=== PATIENT | female | born 1955 | race Hispanic/Latino ===

== ENCOUNTER 2019-03-03 12:26 | Emergency (ER) | payer SELFPAY ==
--- NOTE | 2019-03-03 14:07 | ER ---
Nurse's Notes [facility] Name: Ade Polo Age: 63 yrs Sex: Female : 1955 Arrival Date: 03/03/2019 Time: 12:29 Bed 18 Private MD: Diagnosis: Cutaneous abscess of groin Presentation: 03/03 12:33 Presenting complaint: Patient states: I have an abscess in my right groin area/. la1 Transition of care: patient was not received from another setting of care. Onset of symptoms was March 03, 2019. Risk Assessment: Do you want to hurt yourself or someone else? Patient reports no desire to harm self or others. Initial Sepsis Screen: Does the patient meet any 2 criteria? No. Patient's initial sepsis screen is negative. Does the patient have a suspected source of infection? No. Patient's initial sepsis screen is negative. Care prior to arrival: None. 12:33 Method Of Arrival: Ambulatory la1 12:33 Acuity: RHETT 4 la1 Historical: - Allergies: 12:35 PENICILLINS; la1 - PMHx: 12:35 None; la1 - Immunization history:: Adult Immunizations up to date. - Social history:: Smoking status: Patient uses tobacco products, smokes one-half pack cigarettes per day. - Ebola Screening: : No symptoms or risks identified at this time. Screenin:04 Abuse screen: Denies threats or abuse. Nutritional screening: No deficits noted. em Tuberculosis screening: No symptoms or risk factors identified. Fall Risk None identified. Assessment: 13:09 General: Appears in no apparent distress. comfortable, Behavior is calm, cooperative, em Denies fever. Pain: Complains of pain in right femoral area Pain currently is 7 out of 10 on a pain scale. Neuro: Level of Consciousness is awake, alert, obeys commands, Oriented to person, place, time, situation, Appropriate for age. Cardiovascular: Capillary refill < 3 seconds Patient's skin is warm and dry. Respiratory: Airway is patent Respiratory effort is even, unlabored, Respiratory pattern is regular, symmetrical. Derm: Skin is intact, is healthy with good turgor, Skin is pink, warm \T\ dry. Reports pain that is 7 out of 10 on a pain scale. reports abscess on right groin for 2 days. Musculoskeletal: Capillary refill < 3 seconds, Range of motion: intact in all extremities. 13:15 General: The previous assessment is accurate. Call light remains within reach. ss 14:34 Reassessment: Patient appears in no apparent distress at this time. Patient and/or em family updated on plan of care and expected duration. Pain level reassessed. Patient is alert, oriented x 3, equal unlabored respirations, skin warm/dry/pink. Vital Signs: 12:35 BP 168 / 78; Pulse 87; Resp 16; Temp 97.3; Pulse Ox 100% on R/A; Weight 68.04 kg; la1 Height 5 ft. 6 in. (167.64 cm); 14:20 BP 158 / 81; Pulse 88; Resp 16; Pulse Ox 99% on R/A; em 12:35 Body Mass Index 24.21 (68.04 kg, 167.64 cm) la1 ED Course: 12:29 Patient arrived in ED. rg4 12:34 Triage completed. la1 12:35 Arm band placed on right wrist. la1 12:54 Fam Jc LVN is Primary Nurse. em 13:04 Patient has correct armband on for positive identification. Placed in gown. Bed in low em position. Call light in reach. Adult w/ patient. Pulse ox on. NIBP on. 13:10 Gerardo Valenzuela NP is PHCP. pm1 13:10 Rafiq Zuluaga MD is Attending Physician. pm1 14:06 Curry Weaver MD is Referral Physician. pm1 14:45 No provider procedures requiring assistance completed. Patient did not have IV access em during this emergency room visit. 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 Exp: em 09/27/2020. Lot #: [id number]. } Route: IM; Site: left deltoid; 14:37 Follow up: Response: Medication administered at discharge. em 14:25 Drug: [place] 5 mg-325 mg 1 tabs Route: PO; em 14:37 Follow up: Response: Medication administered at discharge. em 14:25 Drug: Bactrim (160 mg-800 mg (DS) 1 tablet Route: PO; em 14:37 Follow up: Response: Medication administered at discharge. em Outcome: 14:06 Discharge ordered by . pm1 14:47 Discharged to home ambulatory, with family. em 14:47 Condition: good 14:47 Discharge instructions given to patient, Instructed on discharge instructions, follow up and referral plans. medication usage, Demonstrated understanding of instructions, follow-up care, medications, Prescriptions given X 2. 14:49 Patient left the ED. em Signatures: Fam Jc, BIAZZI NITRATOR OPERATOR BIAZZI NITRATOR OPERATOR em Farzaneh Lopez RN RN ss Attema, Lee, RN RN la1 Gerardo Valenzuela NP RESAWYER pm1 Nidia Alas4
--- NOTE | 2019-03-03 14:07 | EDPHYS ---
Physician Documentation [facility] Name: Ade Polo Age: 63 yrs Sex: Female : 1955 Arrival Date: 03/03/2019 Time: 12:29 Bed 18 Private MD: ED Physician Rafiq Zuluaga HPI: 03/03 14:05 This 63 yrs old Female presents to ER via Ambulatory with complaints of pm1 Abscess. 14:05 The patient presents with an abscess of the right labia majora. Description: raised, pm1 swollen. Onset: The symptoms/episode began/occurred 2 day(s) ago. Possible cause(s): unknown. Associated signs and symptoms: Pertinent negatives: discharge, drainage, fever. Modifying factors: the symptoms are alleviated by nothing, the symptoms are aggravated by sitting, touching. Severity of symptoms: in the emergency department the symptoms are actually worse. The patient has not experienced similar symptoms in the past. The patient has not recently seen a physician. Historical: - Allergies: 12:35 PENICILLINS; la1 - PMHx: 12:35 None; la1 - Immunization history:: Adult Immunizations up to date. - Social history:: Smoking status: Patient uses tobacco products, smokes one-half pack cigarettes per day. - Ebola Screening: : No symptoms or risks identified at this time. ROS: 14:05 Constitutional: Negative for fever, chills, and weight loss, Cardiovascular: Negative pm1 for chest pain, palpitations, and edema, Respiratory: Negative for shortness of breath, cough, wheezing, and pleuritic chest pain, Abdomen/GI: Negative for abdominal pain, nausea, vomiting, diarrhea, and constipation, Back: Negative for injury and pain, : Negative for injury, bleeding, discharge, and swelling, MS/Extremity: Negative for injury and deformity. 14:05 Neuro: Negative for headache, weakness, numbness, tingling, and seizure. 14:05 Skin: Positive for abscess, of the right labia majora. Exam: 14:05 Constitutional: This is a well developed, well nourished patient who is awake, alert, pm1 and in no acute distress. Head/Face: Normocephalic, atraumatic. Neck: Trachea midline, no thyromegaly or masses palpated, and no cervical lymphadenopathy. Supple, full range of motion without nuchal rigidity, or vertebral point tenderness. No Meningismus. Chest/axilla: Normal chest wall appearance and motion. Nontender with no deformity. No lesions are appreciated. Cardiovascular: Regular rate and rhythm with a normal S1 and S2. No gallops, murmurs, or rubs. Normal PMI, no JVD. No pulse deficits. Respiratory: Lungs have equal breath sounds bilaterally, clear to auscultation and percussion. No rales, rhonchi or wheezes noted. No increased work of breathing, no retractions or nasal flaring. Abdomen/GI: Soft, non-tender, with normal bowel sounds. No distension or tympany. No guarding or rebound. No evidence of tenderness throughout. MS/ Extremity: Pulses equal, no cyanosis. Neurovascular intact. Full, normal range of motion. 14:05 Skin: Appearance: normal except for affected area, abscess, that is small, approximately 1 cm(s), of the right labia majora, with pointing, no surrounding cellulitis, drainage, induration. 14:05 Neuro: Orientation: is normal, Motor: is normal, moves all fours. 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 pm1 Vital Signs: 12:35 BP 168 / 78; Pulse 87; Resp 16; Temp 97.3; Pulse Ox 100% on R/A; Weight 68.04 kg; la1 Height 5 ft. 6 in. (167.64 cm); 14:20 BP 158 / 81; Pulse 88; Resp 16; Pulse Ox 99% on R/A; em 12:35 Body Mass Index 24.21 (68.04 kg, 167.64 cm) la1 Procedures: 14:05 I \T\ D: Incision and drainage was performed for an abscess of the right labia majora pm1 Prepped with Betadine, Incised with needle aspiration with 18 gauge needle. Drained small amount Cultures obtained. the patient tolerated the procedure well. 14:05 I \T\ D: Rolanda as Retention Representative. pm1 MDM: 13:10 Patient medically screened. pm1 14:05 Data reviewed: vital signs. Data interpreted: Pulse oximetry: on room air is 100 %. pm1 Interpretation: normal. Counseling: I had a detailed discussion with the patient and/or guardian regarding: the historical points, exam findings, and any diagnostic results supporting the discharge/admit diagnosis, the need for outpatient follow up, to return to the emergency department if symptoms worsen or persist or if there are any questions or concerns that arise at home. 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 Exp: em 09/27/2020. Lot #: [id number]. } Route: IM; Site: left deltoid; 14:37 Follow up: Response: Medication administered at discharge. em 14:25 Drug: [place] 5 mg-325 mg 1 tabs Route: PO; em 14:37 Follow up: Response: Medication administered at discharge. em 14:25 Drug: Bactrim (160 mg-800 mg (DS) 1 tablet Route: PO; em 14:37 Follow up: Response: Medication administered at discharge. em Disposition: 03/03/19 14:06 Discharged to Home. Impression: Cutaneous abscess of groin. - Condition is Stable. - Discharge Instructions: Skin Abscess. - Prescriptions for Bactrim DS 800- 160 mg Oral Tablet - take 1 tablet by ORAL route every 12 hours for 10 days; 20 tablet. Tramadol 50 mg Oral Tablet - take 1 tablet by ORAL route every 8 hours as needed; 12 tablet. - Medication Reconciliation Form, Thank You Letter, Antibiotic Education, Prescription Opioid Use form. - Follow up: Emergency Department; When: As needed; Reason: Worsening of condition. Follow up: Private Physician; When: 2 - 3 days; Reason: Recheck today's complaints, Continuance of care, Re-evaluation by your physician. Follow up: Curry Weaver MD; When: 2 - 3 days; Reason: Recheck today's complaints, Continuance of care, Re-evaluation by your physician. - Problem is new. - Symptoms have improved. Addendum: 03/04/2019 16:43 Co-signature as Attending Physician, Rafiq Zuluaga MD. m a2 Signatures: Dispatcher [employer] Fam L[place]ola, CREDIT CONTROL ASSISTANT CREDIT CONTROL ASSISTANT Denzel Melendez RN RN la1 Gerardo Valenzuela, PROFESSIONAL CASTER PROFESSIONAL CASTER pm1 Rafiq Zuluaga MD MD ma2 Corrections: (The following items were deleted from the chart) 11/10 14:06 14:06 03/03/2019 14:06 Discharged to Home. Impression: Cutaneous abscess of groin. pm1 Condition is Stable. Forms are Medication Reconciliation Form, Thank You Letter, Antibiotic Education, Prescription Opioid Use. Follow up: Emergency Department; When: As needed; Reason: Worsening of condition. Follow up: Private Physician; When: 2 - 3 days; Reason: Recheck today's complaints, Continuance of care, Re-evaluation by your physician. Problem is new. Symptoms have improved. pm1 14:49 14:06 03/03/2019 14:06 Discharged to Home. Impression: Cutaneous abscess of groin. em Condition is Stable. Discharge Instructions: Skin Abscess. Prescriptions for Bactrim DS 800-160 mg Oral Tablet - take 1 tablet by ORAL route every 12 hours for 10 days; 20 tablet, Tramadol 50 mg Oral Tablet - take 1 tablet by ORAL route every 8 hours as needed; 12 tablet. and Forms are Medication Reconciliation Form, Thank You Letter, Antibiotic Education, Prescription Opioid Use. Follow up: Emergency Department; When: As needed; Reason: Worsening of condition. Follow up: Private Physician; When: 2 - 3 days; Reason: Recheck today's complaints, Continuance of care, Re-evaluation by your physician. Follow up: Curry Weaver; When: 2 - 3 days; Reason: Recheck today's complaints, Continuance of care, Re-evaluation by your physician. Problem is new. Symptoms have improved. pm1
[2019-03-03] MEDS ORDERED: SMZ./TMP. 800/160 MG TABLET ONE (14:17)
[2019-03-03] MEDS ORDERED: HYDROCODONE/APAP 5/325 MG TAB ONE (14:17)
[2019-03-03] MEDS ORDERED: TETANUS & DIPHTHERIA TOX,ADULT 0.5 ML VIAL ONE (14:17)
[2019-03-03 15:13] VITALS: TEMP 97.3
[2019-03-03 15:18] VITALS: BP 158/81; O2SAT 99
== END 2019-03-03 14:49 | disposition home or self-care (01) ==
LOC: ER 12:26
PROC: 0U9MXZZ Drainage of Vulva, External Approach (ICD-10-PCS; principal; 2019-03-03)
DX: N76.4 Abscess of vulva (principal); F17.210 Nicotine dependence, cigarettes, uncomplicated; Z23 Encounter for immunization; Z88.0 Allergy status to penicillin
CPT/HCPCS: 87070; 87205; 90471; 90714; 99283

== ENCOUNTER 2020-05-28 13:33 | Inpatient (IN) | payer SELFPAY ==
[2020-05-28] MEDS ORDERED: predniSONE 20 MG TAB ONE (14:27)
[2020-05-28] MEDS ORDERED: ACETAMINOPHEN 325 MG TABLET ONE (14:27)
[2020-05-28] MEDS ORDERED: BENZONATATE 100 MG CAP PO ONE (14:27)
[2020-05-28] MEDS ORDERED: ALBUTEROL INHALER 60 PUFF/8 GM IH ONE (14:28)
--- NOTE | 2020-05-28 15:25 | RAD REPORT ---
EXAM DESCRIPTION: RAD - Chest Single View - 05/28/2020 3:13 pm CLINICAL HISTORY: Cough;SOB Chest pain. COMPARISON: CHEST PA AND LAT 2 VIEW dated 02/20/2013; CHEST SINGLE VIEW dated 02/19/2013; CHEST SING LE VIEW dated 08/13/2010 FINDINGS: Portable technique limits examination quality. Moderate bilateral pulmonary opacities are present likely representing viral infection or bronchitis. . The heart is normal in size. No displaced fractures.Right axillary kamron dissection noted.
[2020-05-28 15:57] LABS: Absolute Lymphocytes (CBC) 0.7 K/uL (0.7-4.9); Basophils % 0.7 % (0-1.3); Lymphocytes % 7.8 % (15.3-44.8); MPV 11.3 fL (7.6-11.3)
[2020-05-28] MEDS ORDERED: METHYLPREDNISOLONE 40 MG INJ ONE (16:04)
[2020-05-28 16:08] LABS: Protime INR 1.19
[2020-05-28 16:20] LABS: ALT/SGPT 31 U/L (12-78); AST/SGOT 74 U/L (15-37); Albumin 1.9 g/dL (3.4-5.0); Alkaline Phosphatase 158 U/L (45-117); BUN Blood Urea Nitrogen 42 mg/dL (7-18); Bicarbonate 24 mmol/L (21-32); Bilirubin Direct 2.2 mg/dL (0-0.2); Bilirubin Total 3.4 mg/dL (0.2-1.0); Ferritin 1655.4 ng/mL (8-388); Glucose Level 129 mg/dL (74-106); Magnesium 2.8 mg/dL (1.8-2.4); NT PRO-BNP 1479 pg/mL (<125); Potassium 3.3 mmol/L (3.5-5.1); Protein, Total 6.9 g/dL (6.4-8.2); Sodium Level 134 mmol/L (136-145); Troponin (Emerg Dept Use Only) < 0.02 ng/mL (0.0-0.045)
--- NOTE | 2020-05-28 16:40 | ER ---
Nurse's Notes [facility] Name: Ade Polo Age: 65 yrs Sex: Female : 1955 Arrival Date: 05/28/2020 Time: 13:38 Bed 25 Private MD: Diagnosis: Pneumonia due to other specified infectious organisms;Dyspnea, unspecified;Coronavirus infection, unspecified Presentation: 05/28 13:38 Chief complaint: EMS states: N/V/D and sore throat that began 15 days ago. Pt reports ss that she has had exposure to COVID. Coronavirus screen: Client presents with at least one sign or symptom that may indicate coronavirus-19. Standard/surgical mask placed on the client. Provider contacted for isolation considerations. Ebola Screen: Patient denies exposure to infectious person. Patient denies travel to an Ebola-affected area in the 21 days before illness onset. Initial Sepsis Screen: Does the patient meet any 2 criteria? HR > 90 bpm. Does the patient have a suspected source of infection? No. Patient's initial sepsis screen is negative. Risk Assessment: Do you want to hurt yourself or someone else? Patient reports no desire to harm self or others. Onset of symptoms was May 10, 2020. 13:38 Method Of Arrival: EMS: [facility] 13:38 Acuity: RHETT 4 ss Historical: - Allergies: 13:44 PENICILLINS; ss - Home Meds: 16:41 None [Active]; ss - PMHx: 16:41 breast CA ( in remission); ss - PSHx: 16:41 R mastectomy; ss - Immunization history:: Adult Immunizations up to date. - Social history:: Smoking status: Patient denies any tobacco usage or history of. Screenin:54 Abuse screen: Denies threats or abuse. Denies injuries from another. Nutritional ss screening: No deficits noted. Tuberculosis screening: Never had TB. Fall Risk None identified. Assessment: 13:54 General: Appears in no apparent distress. comfortable, unkempt, Behavior is calm, ss cooperative, Reports feeling ill for > 3 days, fatigue for >3 days. Pain: Complains of pain in throat Pain currently is 10 out of 10 on a pain scale. Neuro: Level of Consciousness is awake, alert, obeys commands, Oriented to person, place, time, situation. Cardiovascular: Capillary refill < 3 seconds is brisk in bilateral fingers. Respiratory: Reports cough that is Airway is patent Respiratory effort is even, unlabored, Respiratory pattern is regular, symmetrical, Breath sounds are clear bilaterally. GI: No signs and/or symptoms were reported involving the gastrointestinal system. Reports diarrhea, nausea, vomiting. : No signs and/or symptoms were reported regarding the genitourinary system. EENT: Oral mucosa is moist. Throat is pink. Derm: Skin is intact, is healthy with good turgor, Skin is pink, warm \T\ dry. normal. Musculoskeletal: Range of motion: intact in all extremities, Swelling absent. 15:49 Reassessment: Patient appears in no apparent distress at this time. Patient and/or ss family updated on plan of care and expected duration. Pain level reassessed. Patient is alert, oriented x 3, equal unlabored respirations, skin warm/dry/pink. After ambulating patient, it was noted that her O2 saturation on RA dropped to 87%, but soon after returning to exam room and sitting on stretcher, O2 climbed back up to 98% on RA. Pt denies pain, SOB. 16:40 Reassessment: Patient appears in no apparent distress at this time. No changes from previously documented assessment. 16:59 Reassessment: PT to CT now VIA stretcher. 18:44 Reassessment: Patient appears in no apparent distress at this time. Patient and/or ss family updated on plan of care and expected duration. Pain level reassessed. Pt is aware of admission for further evaluation and treatment. Dr. Lemus anticipates that she may go home tomorrow if she improves. Vital Signs: 13:38 BP 142 / 76; Pulse 102; Resp 19; Pulse Ox 99% on R/A; Pain 10/10; ss 14:06 Temp 98.2(TE); ss 15:50 BP 122 / 68; Pulse 84; Pulse Ox 98% on R/A; ss 18:44 BP 129 / 87; Pulse 77; Resp 18; Pulse Ox 99% ; Pain 0/10; ss ED Course: 13:38 Patient arrived in ED. ss 13:44 Mhoan Nava PA is PHCP. cp 13:44 Nathaniel Castillo MD is Attending Physician. cp 13:44 Triage completed. ss 13:44 Arm band placed on right wrist. ss 13:54 Farzaneh Lopez, RN is Primary Nurse. ss 13:54 Patient has correct armband on for positive identification. Bed in low position. Call ss light in reach. 13:54 Patient maintains SpO2 saturation greater than 95% on room air. ss 15:13 XRAY Chest (1 view) In Process Unspecified. EDMS 15:49 Inserted saline lock: 22 gauge in left antecubital area, using aseptic technique. Blood ss collected. 16:18 Notified Nurse Practitioner and/or Physician Simulation Analyst of a critical lab result(s), sv [id number]. 16:27 Notified Nurse Practitioner and/or Physician Simulation Analyst of a critical lab result(s), sv lactate-2.2. 16:39 Michael Lemus DO is Hospitalizing Provider. cp 17:04 CT Chest For PE Angio In Process Unspecified. EDMS 17:04 CT Abd/Pelvis - IV Contrast Only In Process Unspecified. EDMS 19:42 Primary Nurse role handed off by Farzaneh Lopez RN mw2 21:54 by mi, sent to lab. SST x2 sent to lab. sg Administered Medications: 14:24 Drug: predniSONE 40 mg Route: PO; ss 14:24 Drug: Albuterol HFA Inhaler 2 puffs Route: Inhalation; ss 14:24 Drug: Tessalon Perle 200 mg Route: PO; ss 14:24 Drug: Tylenol 650 mg Route: PO; ss 15:56 Drug: SOLU-Medrol 40 mg Route: IVP; Site: left antecubital; ss 16:41 Follow up: Response: No adverse reaction ss 17:19 Drug: NS 0.9% 500 ml Route: IV; Rate: 500 ml/hr; Site: left antecubital; ss 17:19 Drug: LevaQUIN 750 mg Volume: 150 ml; Route: IVPB; Infused Over: 90 mins; Site: left ss antecubital; Outcome: 16:39 Decision to Hospitalize by Provider. cp 05/29 17:04 Transferred by ground EMS EMS. to [facility], Transfer form iw completed. X-rays sent w/ patient. Note: [place] 17:05 Patient left the ED. ca1 Signatures: Dispatcher [employer] Julia Tabares RN RN sv Gay, Steven, RN RN Kaylee Boland, RN RN iw Farzaneh Lopez, RN RN ss Mohan Nava PA PA cp [place], MyKena mw2 Tiffany Marley, RN RN ca1
--- NOTE | 2020-05-28 16:40 | EDPHYS ---
Physician Documentation [facility] Name: Ade Polo Age: 65 yrs Sex: Female : 1955 Arrival Date: 05/28/2020 Time: 13:38 Bed 25 Private MD: ED Physician Nathaniel Castillo HPI: 05/28 14:03 This 65 yrs old Female presents to ER via EMS with complaints of Sore Throat. cp 14:03 The patient or guardian reports cough, that is intermittent, difficulty breathing. cp 14:03 Onset: The symptoms/episode began/occurred 15 day(s) ago. Associated signs and cp symptoms: Pertinent positives: chest pain, with cough, fever, sore throat, Pertinent negatives: vomiting. Severity of symptoms: in the emergency department the symptoms are unchanged despite home interventions. Patient reports grandson tested positive for COVID-19 2 weeks ago. Historical: - Allergies: 13:44 PENICILLINS; ss - Home Meds: 16:41 None [Active]; ss - PMHx: 16:41 breast CA ( in remission); ss - PSHx: 16:41 R mastectomy; ss - Immunization history:: Adult Immunizations up to date. - Social history:: Smoking status: Patient denies any tobacco usage or history of. ROS: 14:10 Constitutional: Negative for body aches, chills, fever, poor PO intake. cp 14:10 Eyes: Negative for injury, pain, redness, and discharge. cp 14:10 ENT: Negative for ear pain, sore throat, difficulty swallowing, difficulty handling secretions. 14:10 Neck: Negative for pain with movement, pain at rest, stiffness. 14:10 Cardiovascular: Negative for chest pain, edema, palpitations. 14:10 Respiratory: Positive for cough, "sounds productive", shortness of breath, at rest. Negative for wheezing. 14:10 Abdomen/GI: Negative for abdominal pain, nausea, vomiting, and diarrhea, black/tarry stool, rectal bleeding. 14:10 Back: Negative for radiated pain. 14:10 : Negative for urinary symptoms. 14:10 Neuro: Negative for altered mental status, headache, syncope, weakness. 14:10 All other systems are negative. Exam: 14:15 Constitutional: The patient appears in no acute distress, alert, awake, cp non-diaphoretic, non-toxic, well developed, well nourished, obviously ill. 14:15 Head/Face: Normocephalic, atraumatic. cp 14:15 Eyes: Periorbital structures: appear normal, Pupils: equal, round, and reactive to light and accomodation, Extraocular movements: intact throughout, Conjunctiva: normal, no exudate, no injection, Sclera: no appreciated abnormality, Lids and lashes: appear normal, bilaterally. 14:15 ENT: External ear(s): are unremarkable, Nose: is normal, Mouth: Lips: moist, Oral mucosa: moist, Posterior pharynx: Airway: no evidence of obstruction, patent, Tonsils: with erythema, no enlargement, no exudate, Uvula: midline, erythema, that is marked. 14:15 Neck: ROM/movement: is normal, is supple, no meningismus, no nuchal rigidity. 14:15 Chest/axilla: Inspection: normal, Palpation: is normal, no crepitus, no tenderness. 14:15 Cardiovascular: Rate: tachycardic, Rhythm: regular, Edema: is not appreciated, JVD: is not appreciated. 14:15 Respiratory: the patient does not display signs of respiratory distress, Respirations: labored breathing, that is mild, intercostal retractions, are absent, splinting, is not noted, tachypnea, is not appreciated, Breath sounds: bronchial sounds, that are mild, are heard diffusely, stridor, is not appreciated, wheezing: is not appreciated. 14:15 Abdomen/GI: Inspection: abdomen appears normal, Palpation: abdomen is soft and non-tender, in all quadrants, rebound tenderness, is not appreciated, voluntary guarding, is not appreciated, involuntary guarding, is not appreciated. 14:15 Neuro: Orientation: to person, place \\T\\ time. Mentation: is normal, Motor: moves all fours, strength is normal. 15:50 ECG was reviewed by the Attending Physician. cp Vital Signs: 13:38 BP 142 / 76; Pulse 102; Resp 19; Pulse Ox 99% on R/A; Pain 10/10; ss 14:06 Temp 98.2(TE); ss 15:50 BP 122 / 68; Pulse 84; Pulse Ox 98% on R/A; ss 18:44 BP 129 / 87; Pulse 77; Resp 18; Pulse Ox 99% ; Pain 0/10; ss MDM: 13:48 Patient medically screened. cp 15:35 Differential diagnosis: bronchitis, flu, pneumonia, pulmonary embolism, CHF. cp 16:40 Data reviewed: vital signs, nurses notes, lab test result(s), EKG, radiologic studies, cp CT scan, plain films. 16:40 Test interpretation: by ED physician or midlevel provider: ECG, plain radiologic cp studies. Counseling: I had a detailed discussion with the patient and/or guardian regarding: the historical points, exam findings, and any diagnostic results supporting the discharge/admit diagnosis, lab results, radiology results, the need for further work-up and treatment in the hospital. 05/28 14:02 Order name: Strep cp 05/28 14:02 Order name: Influenza Screen (a \\T\\ B) cp 05/28 14:03 Order name: Group A Streptococcus Rapid Sc; Complete Time: 17:09 EDMS 05/28 15:10 Order name: Basic Metabolic Panel cp 05/28 15:10 Order name: CBC with Diff cp 05/28 15:10 Order name: LFT's cp 05/28 15:10 Order name: Magnesium cp 05/28 15:10 Order name: NT PRO-BNP cp 05/28 15:10 Order name: PT-INR; Complete Time: 16:22 cp 05/28 15:10 Order name: Troponin (emerg Dept Use Only); Complete Time: 16:22 cp 05/28 15:10 Order name: CRP; Complete Time: 16:22 cp 05/28 15:10 Order name: Ferritin; Complete Time: 16:22 cp 05/28 15:10 Order name: D-Dimer; Complete Time: 16:22 cp 05/28 15:10 Order name: Lactate; Complete Time: 16:40 cp 05/28 17:10 Interpretation: Abnormal: LAC 2.2. cp 05/28 15:10 Order name: Procalcitonin; Complete Time: 16:40 cp 05/28 17:09 Interpretation: Abnormal: Procalcitonin 5.55. cp 05/28 15:10 Order name: Blood Culture Adult (2) cp 05/28 15:10 Order name: Basic Metabolic Panel; Complete Time: 16:22 EDMS 05/28 17:09 Interpretation: Normal except: NA 134; K 3.3; GLUC 129; BUN 42; GFR 57; CA 8.2. cp 02/ 15:10 Order name: CBC with Automated Diff EDPR 05/28 17:10 Interpretation: Normal except: RBC 5.60; HGB 19.6; HCT 58.0; MCV 103.6; PLT 124; GEOVANNI% cp 87.1; LYM% 7.8. 05/28 15:10 Order name: Liver (Hepatic) Function; Complete Time: 16:22 [facility] 05/28 15:10 Order name: Magnesium; Complete Time: 16:22 [facility] 05/28 15:10 Order name: NT PRO-BNP; Complete Time: 16:22 [facility] 05/28 15:13 Order name: Urine Microscopic Only 05/28 15:13 Order name: Urine Microscopic Only [facility] 05/28 17:08 Order name: Throat Culture [facility] 05/28 17:42 Order name: COVID-19/FLU A+B EDPR 05/28 19:39 Order name: Lactate Sepsis 2 HR Follow-up [facility] 05/28 20:20 Order name: CBC Smear Scan EDPR 05/28 20:32 Order name: Blood Culture EDPR 05/28 14:02 Order name: XRAY Chest (1 view); Complete Time: 15:31 05/28 15:32 Interpretation: Report reviewed. 05/28 14:02 Order name: Vital Signs: temp please; Complete Time: 14:06 cp 05/28 15:10 Order name: EKG; Complete Time: 15:11 cp 05/28 15:10 Order name: Cardiac monitoring; Complete Time: 15:51 cp 05/28 15:10 Order name: EKG - Nurse/Tech; Complete Time: 15:51 cp 05/28 15:10 Order name: IV Saline Lock; Complete Time: 15:51 cp 05/28 15:10 Order name: Labs collected and sent; Complete Time: 15:51 cp 05/28 15:10 Order name: O2 Per Protocol; Complete Time: 15:51 cp 05/28 15:10 Order name: O2 Sat Monitoring; Complete Time: 15:51 cp 05/28 16:23 Order name: CT Chest For PE Angio; Complete Time: 17:19 cp 05/28 16:57 Order name: CT Abd/Pelvis - IV Contrast Only; Complete Time: 17:26 cp 05/28 21:26 Order name: US EDMS 05/29 05:08 Order name: CBC with Automated Diff EDMS 05/29 05:34 Order name: Comprehensive Metabolic Panel EDMS 05/29 05:34 Order name: T4 Free EDMS 05/29 05:34 Order name: Magnesium EDMS 05/29 05:34 Order name: Thyroid Stimulating Hormone EDMS 05/29 07:09 Order name: C-Reactive Protein EDMS 05/29 07:09 Order name: Ferritin EDMS EC:50 Rhythm is regular. DE interval is normal. QRS interval is normal. QT interval is cp prolonged at 424 msec. T waves are Inverted in lead aVR. Interpreted by me. Reviewed by me. Administered Medications: 14:24 Drug: predniSONE 40 mg Route: PO; ss 14:24 Drug: Albuterol HFA Inhaler 2 puffs Route: Inhalation; ss 14:24 Drug: Tessalon Perle 200 mg Route: PO; ss 14:24 Drug: Tylenol 650 mg Route: PO; ss 15:56 Drug: SOLU-Medrol 40 mg Route: IVP; Site: left antecubital; ss 16:41 Follow up: Response: No adverse reaction ss 17:19 Drug: NS 0.9% 500 ml Route: IV; Rate: 500 ml/hr; Site: left antecubital; ss 17:19 Drug: LevaQUIN 750 mg Volume: 150 ml; Route: IVPB; Infused Over: 90 mins; Site: left ss antecubital; Disposition: 05/28/20 16:39 Hospitalization ordered by Michael Lemus for Observation. Preliminary diagnosis are Pneumonia due to other specified infectious organisms, Dyspnea, unspecified, Coronavirus infection, unspecified. - Bed requested for [facility] ER HOLD. - Status is Observation. ca1 - Condition is Fair. - Problem is new. - Symptoms have improved. Addendum: 06/01/2020 06:14 Co-signature as Attending Physician, Nathaniel Castillo MD I agree with the assessment and k dr plan of care. Signatures: Dispatcher [employer] Glen Dai RN Nathaniel Gaston MD MD [facility] Farzaneh Lopez RN RN ss Mohan Nava PA PA cp Acob, Cheryl RN RN ca1 Corrections: (The following items were deleted from the chart) 05/28 16:29 14:03 Influenza Screen (A ordered. EDMS EDMS 16:29 14:03 CORONAVIRUS+MR.LAB.BRZ ordered. EDMS EDMS 17:09 16:25 Normal except: NA 134; K 3.3; GLUC 129; BUN 42; GFR 57. cp cp 18:15 16:39 Hospitalization Ordered by Michael Lemus DO for Observation. Preliminary cp diagnosis is Pneumonia due to other specified infectious organisms; Dyspnea, unspecified. Bed requested for Telemetry/MedSurg (observation). Status is Observation. Condition is Fair. Problem is new. Symptoms have improved. cp 19:13 18:15 05/28/2020 16:39 Hospitalization Ordered by Michael Lemus DO for Observation. sg Preliminary diagnosis is Pneumonia due to other specified infectious organisms; Dyspnea, unspecified; Coronavirus infection, unspecified. Bed requested for Telemetry/MedSurg (observation). Status is Observation. Condition is Fair. Problem is new. Symptoms have improved. cp 05/29 17:05 02 19:13 05/28/2020 16:39 Hospitalization Ordered by Michael Lemus DO for ca1 Observation. Preliminary diagnosis is Pneumonia due to other specified infectious organisms; Dyspnea, unspecified; Coronavirus infection, unspecified. Bed requested for [facility] ER HOLD. Status is Observation. Condition is Fair. Problem is new. Symptoms have improved. sg
--- NOTE | 2020-05-28 17:17 | RAD REPORT ---
EXAM DESCRIPTION: CT - Chest For Pe Angio - 05/28/2020 5:04 pm CLINICAL HISTORY: Chest pain. Cough;SOB COMPARISON: No comparisons TECHNIQUE: CT angiogram of the pulmonary arteries was performed with MIP. All CT scans are performed using dose optimization technique as appropriate and may include automated exposure control or mA/KV adjustment according to patient size. FINDINGS: No evidence of pulmonary thromboembolism. No acute aortic finding demonstrated. Extensive bilateral alveolar lung opacities are present likely representing pneumonia or pulmonary ed radha. No significant pericardial or pleural fluid. No concerning bony finding. IMPRESSION: No evidence of pulmonary thromboembolism. Extensive bilateral alveolar lung opacities most compatible with pneumonia or pulmonary edema.
--- NOTE | 2020-05-28 17:20 | RAD REPORT ---
EXAM DESCRIPTION: CTAbdomen Pelvis W Contrast - 05/28/2020 5:04 pm CLINICAL HISTORY: Abdominal pain. elevated liver enzymes COMPARISON: No comparisons TECHNIQUE: Biphasic CT imaging of the abdomen and pelvis was performed with 100 ml non-ionic IV cont rast. All CT scans are performed using dose optimization technique as appropriate and may include automated exposure control or mA/KV adjustment according to patient size. FINDINGS: Alveolar opacities in lung bases likely represent pneumonia. The liver, spleen, pancreas, adrenal glands and kidneys are within normal limits. No bowel obstruction, free air, free fluid or abscess. Mild sigmoid diverticulosis without diverticul itis. The appendix is normal. No evidence of significant lymphadenopathy. Lumbosacral degenerative changes are present. IMPRESSION: No acute intra-abdominal or pelvic finding. Significant alveolar lung opacities in the bases compatible with pneumonia.
[2020-05-28] MEDS ORDERED: NA CHLORIDE 0.9% 500 ML ONE (17:21)
[2020-05-28] MEDS ORDERED: Levofloxacin 750mg IV 750 MG/150 ML BAG IV ONE (17:21)
[2020-05-28 17:42] LABS: SARS-COV-2 RT PCR POSITIVE (NEGATIVE)
--- NOTE | 2020-05-28 18:08 | P.HP ---
Certification for Inpatient Patient admitted to: Observation With expected LOS: <2 Midnights Patient will require the following post-hospital care: Other (Home oxygen) Practitioner: I am a practitioner with admitting privileges, knowledge of patient current condition, hospital course, and medical plan of care. Services: Services provided to patient in accordance with Admission requirements found in Title 42 Section 412.3 of the Code of Federal Regulations Patient History Date of Service: 05/28/20 Primary Care Provider: None Reason for admission: Shortness of breath History of Present Illness: 65-year-old female with history of polycythemia vera, tobacco abuse, alcohol use. Patient presented with increasing shortness of breath, fever, chills. He has been having worsening symptoms. Patient denied any significant chest pain. No nausea, vomiting. She came to the ER for further evaluation. In the ER patient was evaluated. CT scan shows bilateral pneumonia. White count 8.5, hemoglobin 19.6 periods platelet count 124. Sodium 134, potassium 3.3. BN of 42, creatinine 0.98 with a GFR 57. COVID positive. Patient admitted for further evaluation observation Allergies Penicillins Allergy (Mild, Verified 02/19/13 23:23) Hives/Rash Home medications list reviewed: Yes Home Medications: NK [No Home Meds] 02/19/13 Aspirin Chewable [Aspirin Chewable*] 81 mg PO DAILY #30 tab.chew 02/21/13 Cyanocobalamin [Vitamin B-12*] 2,000 mcg PO DAILY #30 tab 02/21/13 Metoprolol Tartrate [Lopressor*] 25 mg PO BID #60 tab 02/21/13 Temazepam [Restoril*] 15 mg PO BEDTIME #14 cap 02/21/13 - Past Medical/Surgical History Diabetic: No -: Alcohol use -: Polycythemia vera -: Tobacco abuse -: COPD -: R lumpectomy Psychosocial/ Personal History: Patient lives at home - Family History Family History: Reviewed- Non-Contributory - Social History Smoking Status: Heavy Tobacco smoker (>10 cigarettes/day) Counseled patient to stop smoking for: less than 10 minutes Smoking therapy provided: Yes Patient receptive to therapy: Yes Alcohol use: Yes CD- Drugs: No Caffeine use: No Place of Residence: Home Review of Systems General: Fever, Chills, As per HPI Eyes: Unremarkable ENT: Unremarkable Respiratory: Cough, Shortness of Breath, SOB with Excertion Cardiovascular: Unremarkable Gastrointestinal: Unremarkable Genitourinary: Unremarkable Musculoskeletal: Unremarkable Integumentary: Unremarkable Neurological: Unremarkable Lymphatics: Unremarkable Physical Examination - Physical Exam General: Alert, In no apparent distress, Oriented x3, Cooperative HEENT: Atraumatic, Scleral icterus Neck: Supple Respiratory: Crackles/rales Cardiovascular: Normal pulses, Regular rate/rhythm Gastrointestinal: Normal bowel sounds, No tenderness, No masses, No rebound, No guarding Neurological: Normal speech, Normal strength at 5/5 x4 extr, Normal tone, Normal affect - Studies Laboratory Data (last 24 hrs) 05/28/20 15:42: PT 13.7 H, INR 1.19 05/28/20 15:42: WBC 8.50, Hgb 19.6 H, Hct 58.0 H, Plt Count 124 L 05/28/20 15:42: Sodium 134 L, Potassium 3.3 L, BUN 42 H, Creatinine 0.98, Glucose 129 H, Magnesium 2.8 H, Total Bilirubin 3.4 H, AST 74 H, ALT 31, Alkaline Phosphatase 158 H Microbiology Data (last 24 hrs): 05/28/20 14:02 Throat Group A Streptococcus Rapid Screen - Final Assessment and Plan - Plan Impression: Shortness of breast secondary to bilateral COVID 19 pneumonia with hypoxia Suspect underlying COPD Tobacco abuse Alcohol abuse History of polycythemia vera Hyperbilirubinemia Plan: Shortness of breast secondary to bilateral COVID 19 pneumonia with hypoxia: Patient will be admitted for further evaluation and treatment. Continue IV Solu-Medrol, supplementation and oxygen supplementation. Will also provide antibiotic therapy. Patient appears dehydrated will also provide IV fluids. Pulmonary consulted. Maintain sats above 93%. Anticipate improvement over the next 24 hr with possible discharge. Suspect underlying COPD: Start COPD Tobacco abuse: May need nicotine patch. Cessation education provided Alcohol abuse: Alcohol cessation education provided History of polycythemia vera: No need for phlebotomy. Will monitor this closely. Hyperbilirubinemia: CT scan negative. Will check abdominal ultrasound. Will reassess tomorrow. Discharge Plan: Home Plan to discharge in: 24 Hours - Advance Directives Does patient have a Living Will: No Does patient have a Durable POA for Healthcare: No - Code Status/Comfort Care Code Status Assessed: Yes (Patient is full code) Time Spent Managing Pts Care (In Minutes): 55
[2020-05-28 20:19] LABS: Blood Morphology Comment NOTED (NOT SEEN); Macrocytosis SLIGHT; Platelet Estimate DECR; White Blood Cell Scan OK (OK)
[2020-05-28] MEDS ORDERED: ACETAMINOPHEN 500 MG TAB PO PRN (20:23)
[2020-05-28] MEDS ORDERED: ONDANSETRON 4 MG/2 ML VIAL IV PRN (20:23)
[2020-05-28] MEDS ORDERED: IPRATROPIUM BROM 0.5MG/2.5ML NEB PRN (20:23)
[2020-05-28] MEDS ORDERED: BENZONATATE 100 MG CAP PO PRN (20:23)
[2020-05-28] MEDS ORDERED: ALBUTEROL 2.5 MG/3 ML NEB SOL NEB PRN (20:23)
[2020-05-28] MEDS ORDERED: MELATONIN 5 MG TABLET PO SCH (21:00)
[2020-05-28] MEDS: Levofloxacin500mg IV 500 MG/100 ML BAG IV SCH ×2 (21:00→22:23)
--- NOTE | 2020-05-28 21:24 | RAD REPORT ---
EXAM DESCRIPTION: US - Abdomen Exam Limited - 05/28/2020 9:12 pm CLINICAL HISTORY: hyperbilirubin, elevated LFTs Abdominal pain COMPARISON: ABDOMINAL EXAM LIMITED dated 01/20/2012; Abdomen Pelvis W Contrast dated 05/28/2020 FINDINGS: The gallbladder demonstrates no gallstones. A small gallbladder polyp is likely present. N o pericholecystic fluid or gallbladder wall thickening. The common bile duct is normal measuring 5 mm . The liver demonstrates no findings of intrahepatic biliary dilatation. IMPRESSION: No significant gallbladder/ biliary tree abnormality seen.
[2020-05-28] MEDS ORDERED: APIXABAN 5 MG TABLET ONE (21:48)
[2020-05-28] MEDS ORDERED: ASCORBIC ACID 500 MG TABLET ONE (21:48)
[2020-05-28] MEDS ORDERED: Levofloxacin500mg IV 0 MG/0 ML BAG IV ONE (21:48)
[2020-05-28] MEDS ORDERED: NA CHLORIDE 0.9% 1,000 ML ONE (21:48)
[2020-05-28] MEDS: THIAMINE HCL 100 MG TABLET PO SCH (22:23)
[2020-05-28] MEDS: NA CHLORIDE 0.9% 1,000 ML IV SCH (22:23)
[2020-05-28] MEDS: APIXABAN 5 MG TABLET PO SCH (22:24)
[2020-05-28] MEDS: ASCORBIC ACID 500 MG TABLET PO SCH (22:24)
[2020-05-28] MEDS: ARFORMOTEROL TARTRATE 15 MCG/2 ML VIAL.NEB NEB SCH (23:30)
[2020-05-29] MEDS ORDERED: METHYLPREDNISOLONE 40 MG INJ IV SCH (01:00)
[2020-05-29] MEDS ORDERED: METHYLPREDNISOLONE 125 MG INJ ONE (01:26)
[2020-05-29] MEDS ORDERED: METHYLPREDNISOLONE 40 MG INJ ONE ×3 (01:42→12:59)
[2020-05-29 01:51] VITALS: BMI 24.6
[2020-05-29] MEDS ORDERED: BENZONATATE 100 MG CAP PO ONE (04:54)
[2020-05-29 05:03] LABS: Absolute Lymphocytes (CBC) 0.5 K/uL (0.7-4.9); Basophils % 0.5 % (0-1.3); Hematocrit 55.9 % (36.0-45.0); Lymphocytes % 8.3 % (15.3-44.8); MPV 10.6 fL (7.6-11.3); RBC Red Blood Cell Count 5.36 M/uL (3.86-4.86)
[2020-05-29 05:34] LABS: ALT/SGPT 27 U/L (12-78); AST/SGOT 52 U/L (15-37); Albumin 1.6 g/dL (3.4-5.0); Alkaline Phosphatase 133 U/L (45-117); BUN Blood Urea Nitrogen 38 mg/dL (7-18); Bicarbonate 24 mmol/L (21-32); Bilirubin Total 2.3 mg/dL (0.2-1.0); Glucose Level 149 mg/dL (74-106); Magnesium 2.8 mg/dL (1.8-2.4); Potassium 3.2 mmol/L (3.5-5.1); Protein, Total 6.2 g/dL (6.4-8.2); Sodium Level 136 mmol/L (136-145); Thyroid Stimulating Hormone 0.789 uIU/mL (0.360-3.740)
[2020-05-29] MEDS ORDERED: POTASSIUM 25 MEQ EFFERV TAB PO ONE (06:30)
[2020-05-29] MEDS ORDERED: POTASSIUM 25 MEQ EFFERV TAB ONE (06:55)
[2020-05-29 07:09] LABS: Ferritin 1766.2 ng/mL (8-388)
[2020-05-29] MEDS: ARFORMOTEROL TARTRATE 15 MCG/2 ML VIAL.NEB NEB SCH (08:00)
[2020-05-29] MEDS ORDERED: VITAMIN D 1000 UNIT TAB PO SCH (09:00)
[2020-05-29] MEDS ORDERED: METHYLPREDNISOLONE 125 MG INJ IV SCH ×3 (09:00→18:00)
[2020-05-29] MEDS: APIXABAN 5 MG TABLET PO SCH (09:00)
[2020-05-29] MEDS: ASCORBIC ACID 500 MG TABLET PO SCH ×2 (09:00→14:00)
[2020-05-29] MEDS ORDERED: ZINC SULFATE 220 MG CAP PO SCH (09:00)
[2020-05-29] MEDS ORDERED: FOLIC ACID 1 MG TABLET PO SCH (09:00)
[2020-05-29] MEDS: THIAMINE HCL 100 MG TABLET PO SCH (09:00)
[2020-05-29] MEDS: NA CHLORIDE 0.9% 1,000 ML IV SCH (09:43)
[2020-05-29] MEDS ORDERED: FOLIC ACID 1 MG TABLET ONE (09:57)
[2020-05-29] MEDS ORDERED: ZINC SULFATE 220 MG CAP ONE (09:57)
[2020-05-29] MEDS ORDERED: APIXABAN 5 MG TABLET ONE (09:57)
[2020-05-29] MEDS ORDERED: THIAMINE HCL 100 MG TABLET ONE (09:57)
[2020-05-29] MEDS ORDERED: ASCORBIC ACID 500 MG TABLET ONE ×2 (09:58→15:20)
--- NOTE | 2020-05-29 10:55 | P.CNS ---
Date of Consult: 05/29/20 Reason for Consult: Respiratory failure Primary Care Provider: None Chief Complaint: Shortness of breath History of Present Illness: Patient is 65 years of age history of polycythemia admitted with worsening fever chills dyspnea as found to have stein virus pneumonia as doing a little better still requiring high concentrations of oxygen Allergies Penicillins Allergy (Mild, Verified 02/19/13 23:23) Hives/Rash Home Medications: NK [No Home Meds] 05/29/20 - Past Medical/Surgical History Diabetic: No -: Alcohol use -: Polycythemia vera -: Tobacco abuse -: COPD -: R lumpectomy Psychosocial/ Personal History: Patient lives at home - Family History Mother Medical History: Hypertension, Diabetes Father Medical History: Stroke - Social History Smoking Status: Current every day smoker Alcohol use: No CD- Drugs: No Caffeine use: No Place of Residence: Home Review of Systems General: Weakness Physical Examination Temp Pulse Resp BP Pulse Ox 97.6 F 72 27 H 134/73 92 05/29/20 06:00 05/29/20 06:00 05/29/20 06:00 05/29/20 06:00 05/29/20 06:00 Laboratory Data (last 24 hrs) 05/29/20 04:49: Sodium 136, Potassium 3.2 L, BUN 38 H, Creatinine 0.60, Glucose 149 H, Magnesium 2.8 H, Total Bilirubin 2.3 H, AST 52 H, ALT 27, Alkaline Phosphatase 133 H 05/29/20 04:49: WBC 6.40 D, Hgb 18.8 H, Hct 55.9 H, Plt Count 113 L 05/28/20 15:42: PT 13.7 H, INR 1.19 05/28/20 15:42: WBC 8.50, Hgb 19.6 H, Hct 58.0 H, Plt Count 124 L 05/28/20 15:42: Sodium 134 L, Potassium 3.3 L, BUN 42 H, Creatinine 0.98, Glucose 129 H, Magnesium 2.8 H, Total Bilirubin 3.4 H, AST 74 H, ALT 31, Alkaline Phosphatase 158 H - Problems (1) Acute respiratory failure due to severe acute respiratory syndrome coronavirus 2 (SARS-CoV-2) infection Current Visit: Yes Status: Acute Plan: Patient is 65 years of age admitted with respiratory failure she stable feeling better patient has extensive stein virus pneumonia increase Solu-Medrol to 125 IV Q 8 ivermectin Dc IV fluids change to p.o. levofloxacin doubt bacterial pneumonia minimally abnormal LFTs ferritin level is elevated start patient on ivermectin change to p.o. levofloxacin in consider in D seeing it once her procalcitonin level is back to normal
--- NOTE | 2020-05-29 11:07 | P.PN ---
Subjective Date of Service: 05/29/20 Primary Care Provider: None Chief Complaint: Shortness of breath Subjective: Other (Patient required more oxygen last night. Currently on cold high-flow system at 15 liters/minute. Saturations around 90-95%.) Physical Examination - Vital Signs Temperature: 97.6 F Blood Pressure: 134/73 Pulse: 72 Respirations: 27 Pulse Ox (%): 92 - Physical Exam General: Alert, Cooperative HEENT: Atraumatic, Scleral icterus Neck: Supple Respiratory: Other (Patient on cold high-flow system. No significant distress noted) Cardiovascular: Normal pulses, Regular rate/rhythm Gastrointestinal: Normal bowel sounds, No tenderness, No masses, No rebound, No guarding Neurological: Normal speech, Normal strength at 5/5 x4 extr, Normal tone, Normal affect - Studies Laboratory Data (last 24 hrs) 05/29/20 04:49: Sodium 136, Potassium 3.2 L, BUN 38 H, Creatinine 0.60, Glucose 149 H, Magnesium 2.8 H, Total Bilirubin 2.3 H, AST 52 H, ALT 27, Alkaline Phosphatase 133 H 05/29/20 04:49: WBC 6.40 D, Hgb 18.8 H, Hct 55.9 H, Plt Count 113 L 05/28/20 15:42: PT 13.7 H, INR 1.19 05/28/20 15:42: WBC 8.50, Hgb 19.6 H, Hct 58.0 H, Plt Count 124 L 05/28/20 15:42: Sodium 134 L, Potassium 3.3 L, BUN 42 H, Creatinine 0.98, Glucose 129 H, Magnesium 2.8 H, Total Bilirubin 3.4 H, AST 74 H, ALT 31, Alkaline Phosphatase 158 H Microbiology Data (last 24 hrs): 05/28/20 14:02 Throat Group A Streptococcus Rapid Screen - Final Medications List Reviewed: Yes Assessment & Plan Discharge Plan: Transfer Plan to discharge in: 24 Hours Physician Review Additional Text: Impression: Shortness of breath secondary to acute respiratory failure related to bilateral COVID 19 pneumonia with hypoxia complicated with underlying COPD Tobacco abuse Alcohol abuse History of polycythemia vera Hyperbilirubinemia Plan: Shortness of breath secondary to acute respiratory failure related to bilateral COVID 19 pneumonia with hypoxia complicated with underlying COPD: Patient required more oxygen Overnite. Currently on cold high-flow system. At 15 liters/minute. Saturations around 90-95%. Continue current management. IV Solu-Medrol increased by pulmonology. Will change Levaquin to oral. Continue supplementation. Ivermectin added. Still no bed availability to go up stairs. This was discussed in detail with patient and nurse management. Due to the lack of beds and inadequate staff, will transfer patient to another hospital facility to continue care. This was discussed with the patient. Patient agrees. Patient stable for transfer. Tobacco abuse: Will provide nicotine patch. Cessation education provided. Alcohol abuse: Alcohol cessation education provided History of polycythemia vera: Overall stable. No need for phlebotomy. Will monitor this closely. Hyperbilirubinemia: CT scan negative. Abdominal ultrasound shows no biliary tree abnormality. This has improved Time Spent Managing Pts Care (In Minutes): 55
[2020-05-29] MEDS ORDERED: IVERMECTIN 3 MG TABLET PO SCH (12:00)
[2020-05-29] MEDS ORDERED: INFLUENZA VACCINE (for 3y+) 0.5 ML DOSE IMVAC ONE (12:00)
[2020-05-29] MEDS ORDERED: VITAMIN D 1000 UNIT TAB ONE (12:23)
--- NOTE | 2020-05-29 14:19 | P.DS ---
Admission Date: 05/29/20 Discharge Date: 05/29/20 Primary Care Provider: None Disposition: TRANSFER TO [facility] Discharge Condition: GOOD Reason for Admission: Shortness of breath Consultations: Pulmonary-Dr. Nichols Procedures: CT chest: FINDINGS: No evidence of pulmonary thromboembolism. No acute aortic finding demonstrated. Extensive bilateral alveolar lung opacities are present likely representing pneumonia or pulmonary edema. No significant pericardial or pleural fluid. No concerning bony finding. IMPRESSION: No evidence of pulmonary thromboembolism. Extensive bilateral alveolar lung opacities most compatible with pneumonia or pulmonary edema. CT abdomen: FINDINGS: Alveolar opacities in lung bases likely represent pneumonia. The liver, spleen, pancreas, adrenal glands and kidneys are within normal limits. No bowel obstruction, free air, free fluid or abscess. Mild sigmoid diverticulosis without diverticulitis. The appendix is normal. No evidence of significant lymphadenopathy. Lumbosacral degenerative changes are present. IMPRESSION: No acute intra-abdominal or pelvic finding. Significant alveolar lung opacities in the bases compatible with pneumonia. Abdominal ultrasound: FINDINGS: The gallbladder demonstrates no gallstones. A small gallbladder polyp is likely present. No pericholecystic fluid or gallbladder wall thickening. The common bile duct is normal measuring 5 mm. The liver demonstrates no findings of intrahepatic biliary dilatation. IMPRESSION: No significant gallbladder/ biliary tree abnormality seen. Medical problem list: Shortness of breath secondary to acute respiratory failure related to bilateral COVID 19 pneumonia with hypoxia complicated with underlying COPD Tobacco abuse Alcohol abuse History of polycythemia vera Hyperbilirubinemia Brief History of Present Illness: 65-year-old female with history of polycythemia vera, tobacco abuse, alcohol use. Patient presented with increasing shortness of breath, fever, chills. He has been having worsening symptoms. Patient denied any significant chest pain. No nausea, vomiting. She came to the ER for further evaluation. In the ER patient was evaluated. CT scan shows bilateral pneumonia. White count 8.5, hemoglobin 19.6 periods platelet count 124. Sodium 134, potassium 3.3. BN of 42, creatinine 0.98 with a GFR 57. COVID positive. Patient admitted for further evaluation observation Hospital Course: Patient presented with Shortness of breath secondary to acute respiratory failure related to bilateral COVID 19 pneumonia with hypoxia complicated with underlying COPD. CT scan shows no pulmonary embolism. CT since shows bilateral pneumonia. Patient required further oxygen requirement. Her condition has not improved. Patient current cold high-flow system at 15 liters/minute. Patient also on IV Solu-Medrol, Levaquin, ivermectin, Eliquis, vitamin-C, vitamin-D, thiamine, melatonin and thiamine. Patient needs continued therapy. Anticipate prolonged hospitalization. Due to lack of beds and staff, patient was evaluated for transfer to other facility to continue her care. Patient agree to be transferred to other facility to continue her care. Spoke with hospitalist at [place], [place]. He is willing to accept the patient. Patient will be transported. Patient may be transported on non-rebreather. Patient will continue with current medications. Further care will be provided at the facility. Patient with tobacco abuse. Patient may require nicotine patch. Tobacco cessation education provided. Patient with alcohol abuse. Patient reports taking 1-2 beers per day. Cessation education provided. Continue thiamine. Patient with history of polycythemia vera. This appears stable. No need for phlebotomy. Patient on Eliquis at this time. Patient with hyperbilirubinemia. CT scan negative. Abdominal ultrasound shows no biliary tree abnormality. This can be further monitored. Vital Signs/Physical Exam: Temp Pulse Resp BP Pulse Ox 97.6 F 75 22 H 151/71 H 91 05/29/20 12:00 05/29/20 12:00 05/29/20 12:00 05/29/20 12:00 05/29/20 12:00 General: Alert, In no apparent distress, Oriented x3, Cooperative HEENT: Atraumatic, Scleral icterus Neck: Supple Respiratory: Other (Patient on cold high-flow system a 15 liters/minute.) Cardiovascular: Normal pulses, Regular rate/rhythm Gastrointestinal: No guarding Neurological: Normal speech, Normal strength at 5/5 x4 extr, Normal tone, Normal affect Laboratory Data at Discharge: WBC 6.40 K/uL (4.3-10.9) D 05/29/20 04:49 Hgb 18.8 g/dL (12.0-15.0) H 05/29/20 04:49 Hct 55.9 % (36.0-45.0) H 05/29/20 04:49 Plt Count 113 K/uL (152-406) L 05/29/20 04:49 PT 13.7 SECONDS (9.5-12.5) H 02/04/21 15:42 INR 1.19 05/28/20 15:42 Sodium 136 mmol/L (136-145) 05/29/20 04:49 Potassium Cancelled 05/29/20 Unknown BUN 38 mg/dL (7-18) H 05/29/20 04:49 Creatinine 0.60 mg/dL (0.55-1.3) 05/29/20 04:49 Glucose 149 mg/dL (74-106) H 05/29/20 04:49 Magnesium 2.8 mg/dL (1.8-2.4) H 05/29/20 04:49 Total Bilirubin 2.3 mg/dL (0.2-1.0) H 05/29/20 04:49 AST 52 U/L (15-37) H 05/29/20 04:49 ALT 27 U/L (12-78) 05/29/20 04:49 Alkaline Phosphatase 133 U/L (45-117) H 05/29/20 04:49 Home Medications: NK [No Home Meds] 05/29/20 Physician Discharge Instructions: Patient be transferred to [facility] to continue treatment Diet: AHA Activity: Ad bird Followup: NONE,NONE [Primary Care Provider] - Time spent managing pt's care (in minutes): 55
[2020-05-29 16:31] VITALS: O2SAT 91
[2020-05-29 16:33] VITALS: BP 139/85; TEMP 97.9
[2020-05-29] MEDS ORDERED: Levofloxacin500mg IV 500 MG/100 ML BAG IV SCH (21:00)
[2020-05-30] MEDS ORDERED: levoFLOXacin 500 MG TAB PO SCH (09:00)
[2020-06-03 05:15] LABS: HBsAG Nonreactive (Nonreactive)
== END 2020-05-29 17:01 | disposition short-term general hospital (02) | DRG 177 ==
LOC: ER 13:33 → ERHOLD 17:57 → OBSVTOIN 05-29 08:19
PROVIDERS: ADMIT Family Medicine; ATTEND Family Medicine
DX: U07.1 COVID-19 (principal); J96.01 Acute respiratory failure with hypoxia; J12.82 Pneumonia due to coronavirus disease 2019; J44.0 Chronic obstructive pulmonary disease with (acute) lower respiratory infection; F10.10 Alcohol abuse, uncomplicated; E80.6 Other disorders of bilirubin metabolism
CPT/HCPCS: 0240U; 36415; 71045; 71275; 74177; 76705; 80048; 80053; 80074; 80076; 82728; 83605; 83735; 83880; 84132; 84145; 84439; 84443; 84484; 85025; 85379; 85610; 86140; 87040; 87070; 87081; 93005; 94640; 96374; 96375; 99285; G0378; J2920; J2930; J7030; J7040; J7512; J7605; Q9967

== ENCOUNTER 2023-04-13 09:59 | Inpatient (IN) | payer OTHER, SELFPAY ==
--- OUTSIDE RECORDS SUMMARY | 2023-04-13 10:05 | XMS REPORT | Continuity of Care Document ---
Author Name Unknown Address [address] [facility] [address]. [address] [place] [address] [facility] thconnect Address [address] [facility]. [address] [place] [address] Care Team Providers Care Appliquer Name Role Phone TIMMY PENA Attending Clinician Unavailable TIMMY PENA Admitting Clinician Unavailable Allergies, Adverse Reactions, Alerts Allergy Name Allergy Type Status Severity Reaction(s) Onset Date Inactive Date Treating Clinician Comments Source Penicill ins DA Active Unknown [facility] (LUF/LI V/SA) Medications Ordered Medication Name Filled Medication Name Start Date Stop Date Current Medication? Ordering Clinician Indication Dosage Frequency Signature (SIG) Comments Components Source benzonatate 100 MG Oral Capsule benzonatate 100 MG Oral Capsule 06-20 00:00: [address] [facility] (LUF/LI V/SA) benzonatate 100 MG Oral Capsule benzonatate 100 MG Oral Capsule 06-20 00:00: 00 Yes 100 BY MOUTH every 8 hours as needed as needed. (For Cough) [facility] (LUF/LI V/SA) albuterol sulfate HFA 90 mcg/actuati on aerosol inhaler albuterol sulfate HFA 90 mcg/actuati on aerosol inhaler Yes [address] [facility] (LUF/LI V/SA) aspirin aspirin Yes 81mg 1xD [facility] (LUF/LI V/SA) dextrometho rphan hydrobromid e 2 MG/ML / guaifenesin 20 MG/ML Oral Solution dextrometho rphan hydrobromid e 2 MG/ML / guaifenesin 20 MG/ML Oral Solution Yes [address] [facility] (LUF/LI V/SA) albuterol sulfate HFA 90 mcg/actuati on aerosol inhaler albuterol sulfate HFA 90 mcg/actuati on aerosol inhaler Yes 2 12xD DIRECTED EVERY 4 HOURS NEEDED as needed. (For SOB) [facility] (LUF/LI V/SA) aspirin aspirin Yes 81mg 1xD orally daily [facility] (LUF/LI V/SA) dextrometho rphan hydrobromid e 2 MG/ML / guaifenesin 20 MG/ML Oral Solution dextrometho rphan hydrobromid e 2 MG/ML / guaifenesin 20 MG/ML Oral Solution Yes 10 BY MOUTH Q6H as needed. (For cough) [facility] (LUF/LI V/SA) Vital Signs Vital Name Observation Time Observation Value Comments S ource Weight 2020-06-20 04:00:00 58.8 KG Weight 2020-06-19 03:45:00 59.7 KG Weight 2020-06-18 02:55:00 60.6 KG Weight 2020-06-17 05:12:00 60.3 KG Weight 2020-06-16 04:47:00 61.4 KG Weight 2020-06-16 03:33:00 61.3 KG Weight 2020-06-15 04:05:00 61.5 KG Weight 2020-06-15 00:25:00 61.5 KG Weight 2020-06-14 02:36:00 61 KG Weight 2020-06-13 04:35:00 63.5 KG Weight 2020-06-12 03:36:00 64.1 KG Weight 2020-06-11 03:42:00 63.7 KG Weight 2020-06-10 05:11:00 62.8 KG Weight 2020-06-08 03:29:00 66.7 KG Weight 2020-06-07 03:44:00 58.6 KG Weight 2020-06-06 00:13:00 59.4 KG Weight 2020-06-05 03:53:00 56.4 KG Weight 2020-06-04 05:31:00 65.5 KG Weight 2020-06-03 04:36:00 66 KG Weight 2020-06-02 03:00:00 66.1 KG Weight 2020-06-01 05:19:00 69.2 KG Weight 2020-05-31 04:20:00 65.5 KG Weight 2020-05-30 03:06:00 65.7 KG Height 2020-05-29 23:28:00 162.56 CM Weight 2020-05-29 23:28:00 68.5 KG Body Temperature 2020-06-20 16:21:00 98.2 [degF] [facility] (LUF/LUANN/SA) Heart Rate 2020-06-20 16:01:00 74 /min [facility] (LUF/LUANN/SA) Pulse Rate 2020-06-20 16:01:00 75 /min [facility] (F/LUANN/SA) Respiratory Rate 2020-06-20 16:01:00 35 /min [facility] (F/LUANN/SA) O2% BldC Oximetry 2020-06-20 16:01:00 100 % [facility] (F/LUANN/SA) BP Systolic 2020-06-20 16:01:00 117 mm[Hg] [facility] (LUF/LUANN/SA) BP Diastolic 2020-06-20 16:01:00 80 mm[Hg] [facility] (F/LUANN/SA) Weight 2020-06-20 04:00:00 58.8 kg [facility] (F/LUANN/SA) Height 2020-05-29 23:28:00 64 [in_i] [facility] (F/LUANN/SA) Procedures Procedure Date / Time Performed Performing Clinician Source INTR TOCILIZUMAB PERIPH VN PERC NT5 2020-06-05 00:00:00 [facility] (F/LUANN/SA) INSRT INFUS DEVC LT AX VN PERQ APPR 2020-06-04 00:00:00 [facility] ([facility]/LUANN/SA) ULTRASONOGRAPHY LT UP EXT VNS GUID 2020-06-04 00:00:00 [facility] (F/LUANN/SA) ASST W/RESP VENT 24-96 CON HR CPAP 2020-06-04 00:00:00 [facility] (LUF/LUANN/SA) TRANSFS CNVLSC PLSM PRPH VN PRC NT5 2020-05-30 00:00:00 [facility] (LUF/LUANN/SA) ISOLATION 2020-05-29 00:00:00 [facility] (LUF/LUANN/SA) ASST RESP VNT> 96 CN HR H NSL FL VL 2020-05-29 00:00:00 [facility] (LUF/LUANN/SA) Encounters Start Date/Time End Date/Time Encounter Type Admission Type Attending [facility] Facility Care Department Encounter ID Source 2022-08-18 16:26:42 2022-08-18 16:26:42 Outpatient [facility] [id number] Channing Kuo 2022-08-11 16:13:56 2022-08-11 16:13:56 Outpatient [facility] [id number] Channing Petit Ayaan 2022-08-09 17:21:54 2022-08-09 17:21:54 Outpatient [facility] [id number] Channing Petit Ayaan 2020-05-29 20:05:00 2020-06-20 17:20:00 COVID-19 TIMMY JOHNSON [facility], [address] [place] [id number] [facility] [id number] [facility] (LUF/LI V/SA) 2020-05-29 00:00:00 2020-05-29 00:00:00 Inpatient [facility], [address] [place], [place] [address] [facility] [id number] [facility] 2020-05-29 00:00:00 2020-05-29 00:00:00 Inpatient [facility], [address] [place] [id number] [facility] [id number] [facility] (LUF/LI V/SA) Results Test Description Test Time Test Comments Results Result Co mments Source CULTURE, URINE 2022-08-13 14:08:17 SPECIMEN NUMBER: [id number] CULTURE, URINE SPECIMEN NUMBER: [id number] SPECIMEN COMMENT: URINE SOURCE: URINE REPORT STATUS: FINAL ISOLATE NUMBER 1: ORGANISM: 08/12/2022 50-100,000 CFU/ML GRAM NEGATIVE BACILLI IDENTIFICATION: 08/13/2022 ESCHERICHIA COLI E. COLI AMOX ICILLIN/CA INTERMED 16/8CEFAZOLIN SENSITIVE <=2CEFTRIAXONE SENSITIVE <=1CIPROFLOXACIN SENSITIVE <=1LEVOFLOXACIN SENSITIVE <=2NITROFURANTOIN SENSITIVE <=32PIP/TAZOBAC SENSITIVE <=16TETRACYCLINE SENSITIVE <=4TOBRAMYCIN SENSITIVE <=4TRIMETH/SULFA SENSITIVE <=2/38 NOTE: NUMBERS DISPLAYED REPRESENT MINIMUM INHIBITORY CONCENTRATION (NIKI) WHICH IS EXPRESSED IN MCG/ML. [facility] has important pathology staff changes effective 06/22/2022. New pathology staff will provide uninterrupted, excellent patient care and clinical consultation. See URL: [email or web address]. UNLESS OTHERWISE INDICATED, ALL TESTING PERFORMED AT [facility] [address] [place] [id number] SENIOR STORAGE ADMINISTRATOR: REFUGIO MCFARLANE M.D. CLIA NUMBER [id number] [facility] [place] [id number] [facility] WITH AUTO [id number] 06:16:00* Test Item Value Reference Range Interpretation Comme nts WBC (test code = WBC) 8.07 10\\S\\3/ul 4.80-10.80 RBC (test code = RBC) 4.37 10\\S\\6/ul 4.20-5.40 Hemoglobin (test code = HGB) 15.0 gm/dl 12.0-14.0 H Hematocrit (test code = HCT) 44.1 % 37.0-47.0 MCV (test code = MCV) 100.9 fL 81.0-99.0 H MCH (test code = MCH) 34.3 pg 27.0-31.0 H MCHC (test code = MCHC) 34.0 gm/dl 33.0-37.0 RDW (test code = RDWVC) 12.9 % 11.5-14.5 Platelet (test code = PLT) 119 10\\S\\3/ul 130-400 L MPV (test code = MPV) 13.7 fL 7.4-10.4 A "NOT MEASURED" RESULTS ARE DISPLAYED WHEN THE INSTRUMENT HAS A SUPPRESSED OR UNREPORTABLE RESULT. THIS WILL MOST OFTEN HAPPEN WITH THE MPV WHEN THERE IS AN ABNORMAL PLATELET DISTRIBUTION DUE TO A CRITICAL LOW VALUE OR PLATELET CLUMPING. THE RDW MAY BE SUPPRESSED IF THERE ARE MULTIPLE PEAKS PRESENT ON THE RBC HISTOGRAM. IN THIS CASE, A MANUAL REVIEW OF THE SLIDE WILL BE PERFORMED, AND RBC MORPHOLOGY WILL BE NOTED ON THE REPORT. NE% (test code = NE) 69.9 % 42.0-75.0 LY% (test code = LY) 14.3 % 13.0-42.0 MO% (test code = MO) 8.2 % 4.0-14.0 EO% (test code = EO) 6.7 % 1.0-5.0 H BA% (test code = BA) 0.2 % 0.0-3.0 IG% (test code = IG%) 0.7 % 0.0-0.4 H [facility]-[id number] 06:47:00* Test Item Value Reference Range Interpretation Comme nts Sodium (test code = NA) 134 mmol/l 136-146 L Potassium (test code = K) 4.0 mmol/l 3.5-5.1 Chloride (test code = CL) 99 mmol/l 98-107 Calcium (test code = CALC) 8.4 mg/dl 8.5-10.1 L CO2 (test code = CO2) 32 mmol/l 21-32 Glucose (test code = GLU) 82 mg/dl 74-106 BUN (test code = BUN) 10.0 mg/dl 7.0-18.0 Creatinine (test code = CREA) 0.3 mg/dl 0.5-1.3 L T Protein (test code = TP) 5.6 gm/dl 6.4-8.2 L Albumin (test code = ALB) 2.3 gm/dl 3.4-5.0 L A/G Ratio (test code = AGRAT) 0.7 % 1.1-2.2 L AST (SGOT) (test code = AST) 10 U/L 15-37 L ALT (SGPT) (test code = ALT) 15 U/L 13-61 Alkaline Phos (test code = ALKP) 111 U/L 45-117 Total Bilirubin (test code = TBIL) 1.2 mg/dl 0.2-1.0 H Globulin (test code = GLOBU) 3.3 gm/dl 2.3-3.5 Calcium, Corrected (test code = CALCCORR) 9.8 mg/dl 8.4-10.2 Various formulas exist for corrected serum calcium results, each yielding different values. This corrected result was based on the formula: Corrected Calcium = SerumCalcium + [0.8 * ( 4 - SerumAlbumin)] EGFR if (test code = EGFRAA) >60 mL/min/1.73m\\ S\\2 EGFR if Non- (test code = EGFRNA) >60 mL/min/1.73m\\ S\\2 Estimated Glomerular Filtration Rate (eGFR) Reference Intervals Decision Points for 18 years and older and average body mass: >= 60 Does not exclude kidney disease. 30 - 59 Suggests moderate chronic kidney disease and indicates the need for further investigation including assessment of proteinuria and cardiovascular factors. < 30 Usually indicates a need for referral for assessment and management of chronic kidney failure. [facility] WITH AUTO [id number] 06:04:00* Test Item Value Reference Range Interpretation Comme nts WBC (test code = WBC) 8.56 10\\S\\3/ul 4.80-10.80 RBC (test code = RBC) 4.32 10\\S\\6/ul 4.20-5.40 Hemoglobin (test code = HGB) 15.1 gm/dl 12.0-14.0 H Hematocrit (test code = HCT) 43.6 % 37.0-47.0 MCV (test code = MCV) 100.9 fL 81.0-99.0 H MCH (test code = MCH) 35.0 pg 27.0-31.0 H MCHC (test code = MCHC) 34.6 gm/dl 33.0-37.0 RDW (test code = RDWVC) 13.2 % 11.5-14.5 Platelet (test code = PLT) 118 10\\S\\3/ul 130-400 L MPV (test code = MPV) 13.6 fL 7.4-10.4 A "NOT MEASURED" RESULTS ARE DISPLAYED WHEN THE INSTRUMENT HAS A SUPPRESSED OR UNREPORTABLE RESULT. THIS WILL MOST OFTEN HAPPEN WITH THE MPV WHEN THERE IS AN ABNORMAL PLATELET DISTRIBUTION DUE TO A CRITICAL LOW VALUE OR PLATELET CLUMPING. THE RDW MAY BE SUPPRESSED IF THERE ARE MULTIPLE PEAKS PRESENT ON THE RBC HISTOGRAM. IN THIS CASE, A MANUAL REVIEW OF THE SLIDE WILL BE PERFORMED, AND RBC MORPHOLOGY WILL BE NOTED ON THE REPORT. NE% (test code = NE) 70.6 % 42.0-75.0 LY% (test code = LY) 13.2 % 13.0-42.0 MO% (test code = MO) 9.3 % 4.0-14.0 EO% (test code = EO) 5.7 % 1.0-5.0 H BA% (test code = BA) 0.5 % 0.0-3.0 IG% (test code = IG%) 0.7 % 0.0-0.4 H [facility]-[id number] 06:32:00* Test Item Value Reference Range Interpretation Comme nts Sodium (test code = NA) 134 mmol/l 136-146 L Potassium (test code = K) 3.9 mmol/l 3.5-5.1 Chloride (test code = CL) 99 mmol/l 98-107 Calcium (test code = CALC) 8.6 mg/dl 8.5-10.1 CO2 (test code = CO2) 30 mmol/l 21-32 Glucose (test code = GLU) 97 mg/dl 74-106 BUN (test code = BUN) 10.0 mg/dl 7.0-18.0 Creatinine (test code = CREA) 0.3 mg/dl 0.5-1.3 L T Protein (test code = TP) 5.7 gm/dl 6.4-8.2 L Albumin (test code = ALB) 2.6 gm/dl 3.4-5.0 L A/G Ratio (test code = AGRAT) 0.8 % 1.1-2.2 L AST (SGOT) (test code = AST) 15 U/L 15-37 ALT (SGPT) (test code = ALT) 18 U/L 13-61 Alkaline Phos (test code = ALKP) 125 U/L 45-117 H Total Bilirubin (test code = TBIL) 1.1 mg/dl 0.2-1.0 H Globulin (test code = GLOBU) 3.1 gm/dl 2.3-3.5 Calcium, Corrected (test code = CALCCORR) 9.7 mg/dl 8.4-10.2 Various formulas exist for corrected serum calcium results, each yielding different values. This corrected result was based on the formula: Corrected Calcium = SerumCalcium + [0.8 * ( 4 - SerumAlbumin)] EGFR if (test code = EGFRAA) >60 mL/min/1.73m\\ S\\2 EGFR if Non- (test code = EGFRNA) >60 mL/min/1.73m\\ S\\2 Estimated Glomerular Filtration Rate (eGFR) Reference Intervals Decision Points for 18 years and older and average body mass: >= 60 Does not exclude kidney disease. 30 - 59 Suggests moderate chronic kidney disease and indicates the need for further investigation including assessment of proteinuria and cardiovascular factors. < 30 Usually indicates a need for referral for assessment and management of chronic kidney failure. [facility]LufkinD-DIMER [id number] 06:11:00* Test Item Value Reference Range Interpretation Comme nts D DIMER (test code = D DIM) 2.14 mg/L FEU 0.19-0.50 H METHOD CHANGE: Due to the discontinued mehodology currently in use, a change in the testing method is necessary. The Reference Ranges will change dramatically, and results are obtained by the observance of clotting activation mesured on the [employer] instruments. This same methodology is currently in use for PT/INR , PTT, AND HEPARIN testing in our Labs. The D-Dimer assay is an aid in the evaluation of thromboembolic events, as in DIC, DVT, Pulmonary Embolism, and other thromboembolic diseases, and should not be used without other diagnostic measures, to properly diagnose and treat thromboembolic disease. REFERENCE RANGE: 0.19 - 0.50 mg/L FEU (Fibrinogen Equivalent Units) Cut-Off Value is: > .50 mg/L FEU Note: Results greater than (>) the Cut-Off are to be considered POSITIVE, and significant in the evaluation of thromboembolic diseases. Results less than (<) the Cut-Off are to be considered NEGATIVE, and a low probability of thromboembolic disease. [facility]kinCBC (HEMOGRAM ONLY)2020-06-18 06:04:00* Test Item Value Reference Range Interpretation Comme nts WBC (test code = WBC) 12.07 10\\S\\3/ul 4.80-10.80 H RBC (test code = RBC) 4.61 10\\S\\6/ul 4.20-5.40 Hemoglobin (test code = HGB) 16.0 gm/dl 12.0-14.0 H Hematocrit (test code = HCT) 46.6 % 37.0-47.0 MCV (test code = MCV) 101.1 fL 81.0-99.0 H MCH (test code = MCH) 34.7 pg 27.0-31.0 H MCHC (test code = MCHC) 34.3 gm/dl 33.0-37.0 RDW (test code = RDWVC) 13.1 % 11.5-14.5 Platelet (test code = PLT) 129 10\\S\\3/ul 130-400 L MPV (test code = MPV) 13.4 fL 7.4-10.4 A "NOT MEASURED" RESULTS ARE DISPLAYED WHEN THE INSTRUMENT HAS A SUPPRESSED OR UNREPORTABLE RESULT. THIS WILL MOST OFTEN HAPPEN WITH THE MPV WHEN THERE IS AN ABNORMAL PLATELET DISTRIBUTION DUE TO A CRITICAL LOW VALUE OR PLATELET CLUMPING. THE RDW MAY BE SUPPRESSED IF THERE ARE MULTIPLE PEAKS PRESENT ON THE RBC HISTOGRAM. IN THIS CASE, A MANUAL REVIEW OF THE SLIDE WILL BE PERFORMED, AND RBC MORPHOLOGY WILL BE NOTED ON THE REPORT. HEMOGRAM ONLY[facility]-LufkinXR CHEST AP/PA 1 [id number] 08:36:49[facility] ([facility]/SA)Name: YRIS BARNES : 1955 Sex: FProcedure: XR CHEST AP/PA 1 VIEWOrder Date: 06/17/2020 5:00 AMOrdering Provider: EVELYNE KAMINSKI ANClinical Indication: [id number]: DyspneaComparison: June 13, 2020Findings:Left upper extremityvenous catheter in place with catheter tip in the axillaryvein.Cardiac size is magnified by projection.Pulmonary vasculature is normal.Stable diffuse bilateral pulmonary infiltrates.No significant pleural effusions.No pneumothorax.There is no acute skeletal abnormality.Impression:1. Stable diffuse bilateral pulmonary infiltrates.2. No significant pleural effusions.3. No significant interval change.This final report was electronically signed by Dr Yaniv Encarnacion MD 18:31 AMDictated By: YANIV ENCARNACION.Date: 06/17/2020 08:31[facility] [id number] 06:56:00* Test Item Value Reference Range Interpretation Comme nts D DIMER (test code = D DIM) 3.06 mg/L FEU 0.19-0.50 H METHOD CHANGE: Due to the discontinued mehodology currently in use, a change in the testing method is necessary. The Reference Ranges will change dramatically, and results are obtained by the observance of clotting activation mesured on the [employer] instruments. This same methodology is currently in use for PT/INR , PTT, AND HEPARIN testing in our Labs. The D-Dimer assay is an aid in the evaluation of thromboembolic events, as in DIC, DVT, Pulmonary Embolism, and other thromboembolic diseases, and should not be used without other diagnostic measures, to properly diagnose and treat thromboembolic disease. REFERENCE RANGE: 0.19 - 0.50 mg/L FEU (Fibrinogen Equivalent Units) Cut-Off Value is: > .50 mg/L FEU Note: Results greater than (>) the Cut-Off are to be considered POSITIVE, and significant in the evaluation of thromboembolic diseases. Results less than (<) the Cut-Off are to be considered NEGATIVE, and a low probability of thromboembolic disease. [facility]-[id number] 06:51:00* Test Item Value Reference Range Interpretation Comme nts Sodium (test code = NA) 137 mmol/l 136-146 Potassium (test code = K) 4.2 mmol/l 3.5-5.1 Chloride (test code = CL) 100 mmol/l 98-107 Calcium (test code = CALC) 8.7 mg/dl 8.5-10.1 CO2 (test code = CO2) 37 mmol/l 21-32 H Glucose (test code = GLU) 107 mg/dl 74-106 H BUN (test code = BUN) 7.0 mg/dl 7.0-18.0 Creatinine (test code = CREA) 0.4 mg/dl 0.5-1.3 L T Protein (test code = TP) 5.8 gm/dl 6.4-8.2 L Albumin (test code = ALB) 2.7 gm/dl 3.4-5.0 L A/G Ratio (test code = AGRAT) 0.9 % 1.1-2.2 L AST (SGOT) (test code = AST) 22 U/L 15-37 ALT (SGPT) (test code = ALT) 25 U/L 13-61 Alkaline Phos (test code = ALKP) 127 U/L 45-117 H Total Bilirubin (test code = TBIL) 1.3 mg/dl 0.2-1.0 H Globulin (test code = GLOBU) 3.1 gm/dl 2.3-3.5 Calcium, Corrected (test code = CALCCORR) 9.7 mg/dl 8.4-10.2 Various formulas exist for corrected serum calcium results, each yielding different values. This corrected result was based on the formula: Corrected Calcium = SerumCalcium + [0.8 * ( 4 - SerumAlbumin)] EGFR if (test code = EGFRAA) >60 mL/min/1.73m\\ S\\2 EGFR if Non- (test code = EGFRNA) >60 mL/min/1.73m\\ S\\2 Estimated Glomerular Filtration Rate (eGFR) Reference Intervals Decision Points for 18 years and older and average body mass: >= 60 Does not exclude kidney disease. 30 - 59 Suggests moderate chronic kidney disease and indicates the need for further investigation including assessment of proteinuria and cardiovascular factors. < 30 Usually indicates a need for referral for assessment and management of chronic kidney failure. [facility]2020-[facility]16 06:35:00* Test Item Value Reference Range Interpretation Comme nts WBC (test code = WBC) 9.42 10\\S\\3/ul 4.80-10.80 RBC (test code = RBC) 4.73 10\\S\\6/ul 4.20-5.40 Hemoglobin (test code = HGB) 16.3 gm/dl 12.0-14.0 H Hematocrit (test code = HCT) 49.1 % 37.0-47.0 H MCV (test code = MCV) 103.8 fL 81.0-99.0 H MCH (test code = MCH) 34.5 pg 27.0-31.0 H MCHC (test code = MCHC) 33.2 gm/dl 33.0-37.0 RDW (test code = RDWVC) 13.3 % 11.5-14.5 Platelet (test code = PLT) 137 10\\S\\3/ul 130-400 MPV (test code = MPV) 13.4 fL 7.4-10.4 A "NOT MEASURED" RESULTS ARE DISPLAYED WHEN THE INSTRUMENT HAS A SUPPRESSED OR UNREPORTABLE RESULT. THIS WILL MOST OFTEN HAPPEN WITH THE MPV WHEN THERE IS AN ABNORMAL PLATELET DISTRIBUTION DUE TO A CRITICAL LOW VALUE OR PLATELET CLUMPING. THE RDW MAY BE SUPPRESSED IF THERE ARE MULTIPLE PEAKS PRESENT ON THE RBC HISTOGRAM. IN THIS CASE, A MANUAL REVIEW OF THE SLIDE WILL BE PERFORMED, AND RBC MORPHOLOGY WILL BE NOTED ON THE REPORT. HEMOGRAM ONLYAur[facility]-LufkinD-DIMER [id number] 09:28:00* Test Item Value Reference Range Interpretation Comme nts D DIMER (test code = D DIM) 3.42 mg/L FEU 0.19-0.50 H METHOD CHANGE: Due to the discontinued mehodology currently in use, a change in the testing method is necessary. The Reference Ranges will change dramatically, and results are obtained by the observance of clotting activation mesured on the [employer] instruments. This same methodology is currently in use for PT/INR , PTT, AND HEPARIN testing in our Labs. The D-Dimer assay is an aid in the evaluation of thromboembolic events, as in DIC, DVT, Pulmonary Embolism, and other thromboembolic diseases, and should not be used without other diagnostic measures, to properly diagnose and treat thromboembolic disease. REFERENCE RANGE: 0.19 - 0.50 mg/L FEU (Fibrinogen Equivalent Units) Cut-Off Value is: > .50 mg/L FEU Note: Results greater than (>) the Cut-Off are to be considered POSITIVE, and significant in the evaluation of thromboembolic diseases. Results less than (<) the Cut-Off are to be considered NEGATIVE, and a low probability of thromboembolic disease. [facility] (HEMOGRAM ONLY)2020-06-14 09:11:00* Test Item Value Reference Range Interpretation Comme nts WBC (test code = WBC) 11.14 10\\S\\3/ul 4.80-10.80 H RBC (test code = RBC) 4.65 10\\S\\6/ul 4.20-5.40 Hemoglobin (test code = HGB) 16.3 gm/dl 12.0-14.0 H Hematocrit (test code = HCT) 48.8 % 37.0-47.0 H MCV (test code = MCV) 104.9 fL 81.0-99.0 H MCH (test code = MCH) 35.1 pg 27.0-31.0 H MCHC (test code = MCHC) 33.4 gm/dl 33.0-37.0 RDW (test code = RDWVC) 13.4 % 11.5-14.5 Platelet (test code = PLT) 125 10\\S\\3/ul 130-400 L MPV (test code = MPV) 12.7 fL 7.4-10.4 A "NOT MEASURED" RESULTS ARE DISPLAYED WHEN THE INSTRUMENT HAS A SUPPRESSED OR UNREPORTABLE RESULT. THIS WILL MOST OFTEN HAPPEN WITH THE MPV WHEN THERE IS AN ABNORMAL PLATELET DISTRIBUTION DUE TO A CRITICAL LOW VALUE OR PLATELET CLUMPING. THE RDW MAY BE SUPPRESSED IF THERE ARE MULTIPLE PEAKS PRESENT ON THE RBC HISTOGRAM. IN THIS CASE, A MANUAL REVIEW OF THE SLIDE WILL BE PERFORMED, AND RBC MORPHOLOGY WILL BE NOTED ON THE REPORT. [facility]-LufkinXR CHEST AP/PA 1 [id number] 12:40:22 [facility])Name: YRIS BARNES : 1955 Sex: FProcedure: AP View ChestOrder date: 06/13/2020 10:03 AMOrdering Provider: MADIE moore Indication: [id number]: DyspneaComparison: June 09, 2020Findings:Cardiomediastinal silhouette is within normal limits. Left-sided PICC line inplace.Table coarse diffuse interstitial reticulonodular airspace opacities. No largepleural effusions or pneumothorax. Osseous structures are nonacute.No evidence of active tuberculosis.Impression:Stable chest.This final report was electronically signed by Dr Bigg Almodovar MD 112:34 PMDictated By: BIGG ALMODOVARDate: 06/13/2020 12:34[facility] 2020-06-13 08:49:00* Test Item Value Reference Range Interpretation Comme nts Sodium (test code = NA) 138 mmol/l 136-146 Potassium (test code = K) 3.7 mmol/l 3.5-5.1 Chloride (test code = CL) 100 mmol/l 98-107 Calcium (test code = CALC) 8.3 mg/dl 8.5-10.1 L CO2 (test code = CO2) 33 mmol/l 21-32 H Glucose (test code = GLU) 90 mg/dl 74-106 BUN (test code = BUN) 7.0 mg/dl 7.0-18.0 Creatinine (test code = CREA) 0.3 mg/dl 0.5-1.3 L EGFR if (test code = EGFRAA) >60 mL/min/1.73m\\ S\\2 EGFR if Non- (test code = EGFRNA) >60 mL/min/1.73m\\ S\\2 Estimated Glomerular Filtration Rate (eGFR) Reference Intervals Decision Points for 18 years and older and average body mass: >= 60 Does not exclude kidney disease. 30 - 59 Suggests moderate chronic kidney disease and indicates the need for further investigation including assessment of proteinuria and cardiovascular factors. < 30 Usually indicates a need for referral for assessment and management of chronic kidney failure. [facility] (HEMOGRAM ONLY)2020-06-13 04:35:00* Test Item Value Reference Range Interpretation Comme nts WBC (test code = WBC) 10.91 10\\S\\3/ul 4.80-10.80 H RBC (test code = RBC) 4.56 10\\S\\6/ul 4.20-5.40 Hemoglobin (test code = HGB) 15.8 gm/dl 12.0-14.0 H Hematocrit (test code = HCT) 47.3 % 37.0-47.0 H MCV (test code = MCV) 103.7 fL 81.0-99.0 H MCH (test code = MCH) 34.6 pg 27.0-31.0 H MCHC (test code = MCHC) 33.4 gm/dl 33.0-37.0 Platelet (test code = PLT) 110 10\\S\\3/ul 130-400 L RDW (test code = RDWVC) 13.0 % 11.5-14.5 MPV (test code = MPV) 13.0 fL 7.4-10.4 [facility]-[id number] 16:20:00* Test Item Value Reference Range Interpretation Comme nts Glucose (test code = GLU) 75 mg/dl 75-110 BUN (test code = BUN) 10.0 mg/dl 6.0-17.0 Creatinine (test code = CREA) 0.4 mg/dl 0.4-1.2 Sodium (test code = NA) 136 mmol/l 137-145 L Potassium (test code = K) 4.4 mmol/l 3.5-5.0 Chloride (test code = CL) 102 mmol/l 98-107 CO2 (test code = CO2) 29 mmol/l 22-30 Calcium (test code = CALC) 8.4 mg/dl 8.4-10.2 T Protein (test code = TP) 5.3 gm/dl 5.1-8.7 Albumin (test code = ALB) 2.6 gm/dl 3.5-4.6 L A/G Ratio (test code = AGRAT) 1.0 % 1.1-2.2 L AST (SGOT) (test code = AST) 44 U/L 11-36 H ALT (SGPT) (test code = ALT) 43 U/L 11-40 H Alkaline Phos (test code = ALKP) 169 U/L 47-114 H Total Bilirubin (test code = TBIL) 1.2 mg/dl 0.2-1.2 Globulin (test code = GLOBU) 2.7 gm/dl 2.3-3.5 Calcium, Corrected (test code = CALCCORR) 9.5 mg/dl 8.4-10.2 Various formulas exist for corrected serum calcium results, each yielding different values. This corrected result was based on the formula: Corrected Calcium = SerumCalcium + [0.8 * ( 4 - SerumAlbumin)] EGFR if (test code = EGFRAA) >60 mL/min/1.73m\\ S\\2 EGFR if Non- (test code = EGFRNA) >60 mL/min/1.73m\\ S\\2 Estimated Glomerular Filtration Rate (eGFR) Reference Intervals Decision Points for 18 years and older and average body mass: >= 60 Does not exclude kidney disease. 30 - 59 Suggests moderate chronic kidney disease and indicates the need for further investigation including assessment of proteinuria and cardiovascular factors. < 30 Usually indicates a need for referral for assessment and management of chronic kidney failure. [facility] (HEMOGRAM ONLY)2020-06-12 06:53:00* Test Item Value Reference Range Interpretation Comme nts WBC (test code = WBC) 12.87 10\\S\\3/ul 4.80-10.80 H RBC (test code = RBC) 4.64 10\\S\\6/ul 4.20-5.40 Hemoglobin (test code = HGB) 16.5 gm/dl 12.0-14.0 H Hematocrit (test code = HCT) 48.2 % 37.0-47.0 H MCV (test code = MCV) 103.9 fL 81.0-99.0 H MCH (test code = MCH) 35.6 pg 27.0-31.0 H MCHC (test code = MCHC) 34.2 gm/dl 33.0-37.0 Platelet (test code = PLT) 90 10\\S\\3/ul 130-400 L RDW (test code = RDWVC) 13.1 % 11.5-14.5 MPV (test code = MPV) 13.6 fL 7.4-10.4 A HEMOGRAM [facility]-[id number] 07:02:00* Test Item Value Reference Range Interpretation Comme nts Sodium (test code = NA) 138 mmol/l 136-146 Potassium (test code = K) 3.4 mmol/l 3.5-5.1 L Chloride (test code = CL) 106 mmol/l 98-107 Calcium (test code = CALC) 7.8 mg/dl 8.5-10.1 L CO2 (test code = CO2) 27 mmol/l 21-32 Glucose (test code = GLU) 76 mg/dl 74-106 BUN (test code = BUN) 14.0 mg/dl 7.0-18.0 Creatinine (test code = CREA) 0.3 mg/dl 0.5-1.3 L T Protein (test code = TP) 5.0 gm/dl 6.4-8.2 L Albumin (test code = ALB) 2.3 gm/dl 3.4-5.0 L A/G Ratio (test code = AGRAT) 0.9 % 1.1-2.2 L AST (SGOT) (test code = AST) 61 U/L 15-37 H ALT (SGPT) (test code = ALT) 72 U/L 13-61 H Alkaline Phos (test code = ALKP) 223 U/L 45-117 H Total Bilirubin (test code = TBIL) 1.2 mg/dl 0.2-1.0 H Globulin (test code = GLOBU) 2.7 gm/dl 2.3-3.5 Calcium, Corrected (test code = CALCCORR) 9.2 mg/dl 8.4-10.2 Various formulas exist for corrected serum calcium results, each yielding different values. This corrected result was based on the formula: Corrected Calcium = SerumCalcium + [0.8 * ( 4 - SerumAlbumin)] EGFR if (test code = EGFRAA) >60 mL/min/1.73m\\ S\\2 EGFR if Non- (test code = EGFRNA) >60 mL/min/1.73m\\ S\\2 Estimated Glomerular Filtration Rate (eGFR) Reference Intervals Decision Points for 18 years and older and average body mass: >= 60 Does not exclude kidney disease. 30 - 59 Suggests moderate chronic kidney disease and indicates the need for further investigation including assessment of proteinuria and cardiovascular factors. < 30 Usually indicates a need for referral for assessment and management of chronic kidney failure. [facility] WITH AUTO [id number] 06:36:00* Test Item Value Reference Range Interpretation Comme nts WBC (test code = WBC) 13.38 10\\S\\3/ul 4.80-10.80 H RBC (test code = RBC) 4.76 10\\S\\6/ul 4.20-5.40 Hemoglobin (test code = HGB) 16.4 gm/dl 12.0-14.0 H Hematocrit (test code = HCT) 48.6 % 37.0-47.0 H MCV (test code = MCV) 102.1 fL 81.0-99.0 H MCH (test code = MCH) 34.5 pg 27.0-31.0 H MCHC (test code = MCHC) 33.7 gm/dl 33.0-37.0 RDW (test code = RDWVC) 13.1 % 11.5-14.5 Platelet (test code = PLT) 87 10\\S\\3/ul 130-400 L MPV (test code = MPV) 12.6 fL 7.4-10.4 A "NOT MEASURED" RESULTS ARE DISPLAYED WHEN THE INSTRUMENT HAS A SUPPRESSED OR UNREPORTABLE RESULT. THIS WILL MOST OFTEN HAPPEN WITH THE MPV WHEN THERE IS AN ABNORMAL PLATELET DISTRIBUTION DUE TO A CRITICAL LOW VALUE OR PLATELET CLUMPING. THE RDW MAY BE SUPPRESSED IF THERE ARE MULTIPLE PEAKS PRESENT ON THE RBC HISTOGRAM. IN THIS CASE, A MANUAL REVIEW OF THE SLIDE WILL BE PERFORMED, AND RBC MORPHOLOGY WILL BE NOTED ON THE REPORT. NE% (test code = NE) 87.3 % 42.0-75.0 H LY% (test code = LY) 5.6 % 13.0-42.0 L MO% (test code = MO) 3.2 % 4.0-14.0 L EO% (test code = EO) 2.9 % 1.0-5.0 BA% (test code = BA) 0.3 % 0.0-3.0 IG% (test code = IG%) 0.7 % 0.0-0.4 H Platelet Morphology (test code = PLTMORPH) Decreased platelets No previous value was reported. A value of Decreased platelets was entered by [id number] on 06/10/2020 06:36 [facility]kinCLOSTRIDI[facility] ( in house)2020-06-09 12:02:00* Test Item Value Reference Range Interpretation Comme nts Clostridium Difficile AG (test code = CDTAG) Negative Negative N Clostridium Difficile Toxin (test code = CDT) Negative Negative N If both tests are POSITIVE, patient is POSITIVE for toxigenic C. difficile. If both tests are NEGATIVE, patient is NEGATIVE for toxigenic C. difficile. If antigen is POSITIVE, and toxin is NEGATIVE, C. difficile is present but toxin not detected. PCR testing to follow. If antigen is NEGATIVE, and toxin is POSITIVE, result is INDETERMINATE, and repeating with a fresh specimen is recommended. Testing for stool leukocytes can aid in treatment decisions, as recommended by the [employer]. [facility]-[id number] 07:58:00* Test Item Value Reference Range Interpretation Comme nts Sodium (test code = NA) 138 mmol/l 136-146 Potassium (test code = K) 3.8 mmol/l 3.5-5.1 Chloride (test code = CL) 106 mmol/l 98-107 Calcium (test code = CALC) 7.8 mg/dl 8.5-10.1 L CO2 (test code = CO2) 26 mmol/l 21-32 Glucose (test code = GLU) 94 mg/dl 74-106 BUN (test code = BUN) 15.0 mg/dl 7.0-18.0 Creatinine (test code = CREA) 0.4 mg/dl 0.5-1.3 L T Protein (test code = TP) 5.3 gm/dl 6.4-8.2 L Albumin (test code = ALB) 2.2 gm/dl 3.4-5.0 L A/G Ratio (test code = AGRAT) 0.7 % 1.1-2.2 L AST (SGOT) (test code = AST) 71 U/L 15-37 H ALT (SGPT) (test code = ALT) 86 U/L 13-61 H Alkaline Phos (test code = ALKP) 273 U/L 45-117 H Total Bilirubin (test code = TBIL) 1.4 mg/dl 0.2-1.0 H Globulin (test code = GLOBU) 3.1 gm/dl 2.3-3.5 Calcium, Corrected (test code = CALCCORR) 9.2 mg/dl 8.4-10.2 Various formulas exist for corrected serum calcium results, each yielding different values. This corrected result was based on the formula: Corrected Calcium = SerumCalcium + [0.8 * ( 4 - SerumAlbumin)] EGFR if (test code = EGFRAA) >60 mL/min/1.73m\\ S\\2 EGFR if Non- (test code = EGFRNA) >60 mL/min/1.73m\\ S\\2 Estimated Glomerular Filtration Rate (eGFR) Reference Intervals Decision Points for 18 years and older and average body mass: >= 60 Does not exclude kidney disease. 30 - 59 Suggests moderate chronic kidney disease and indicates the need for further investigation including assessment of proteinuria and cardiovascular factors. < 30 Usually indicates a need for referral for assessment and management of chronic kidney failure. [facility]kin[facility] WITH AUTO [id number] 07:33:00* Test Item Value Reference Range Interpretation Comme nts WBC (test code = WBC) 11.64 10\\S\\3/ul 4.80-10.80 H RBC (test code = RBC) 4.83 10\\S\\6/ul 4.20-5.40 Hemoglobin (test code = HGB) 17.0 gm/dl 12.0-14.0 H Hematocrit (test code = HCT) 50.2 % 37.0-47.0 H MCV (test code = MCV) 103.9 fL 81.0-99.0 H MCH (test code = MCH) 35.2 pg 27.0-31.0 H MCHC (test code = MCHC) 33.9 gm/dl 33.0-37.0 RDW (test code = RDWVC) 13.3 % 11.5-14.5 Platelet (test code = PLT) 84 10\\S\\3/ul 130-400 L MPV (test code = MPV) 12.4 fL 7.4-10.4 A "NOT MEASURED" RESULTS ARE DISPLAYED WHEN THE INSTRUMENT HAS A SUPPRESSED OR UNREPORTABLE RESULT. THIS WILL MOST OFTEN HAPPEN WITH THE MPV WHEN THERE IS AN ABNORMAL PLATELET DISTRIBUTION DUE TO A CRITICAL LOW VALUE OR PLATELET CLUMPING. THE RDW MAY BE SUPPRESSED IF THERE ARE MULTIPLE PEAKS PRESENT ON THE RBC HISTOGRAM. IN THIS CASE, A MANUAL REVIEW OF THE SLIDE WILL BE PERFORMED, AND RBC MORPHOLOGY WILL BE NOTED ON THE REPORT. NE% (test code = NE) 86.8 % 42.0-75.0 H LY% (test code = LY) 6.0 % 13.0-42.0 L MO% (test code = MO) 3.1 % 4.0-14.0 L EO% (test code = EO) 2.9 % 1.0-5.0 BA% (test code = BA) 0.3 % 0.0-3.0 IG% (test code = IG%) 0.9 % 0.0-0.4 H [facility]-LufkinXR CHEST AP/PA 1 [id number] 07:21:46 [facility] ([facility])Name: YRIS BARNES : 1955 Sex: FProcedures: XR CHEST AP/PA 1 VIEWExam Date: 06/09/2020 5:00 AMOrdering Physician: EVELYNE Cordoninical Indication: [id number]: Covid-19Comparison: Chest radiograph 06/05/20Findings:Technique: Single frontal portable radiograph of the chest.Medical devices: EKG leads and wires overlie the thorax. Surgical clipsoverlie the right axilla.Pneumothorax: No pneumothorax.Lungs: Diffuse groundglass attenuation of the pulmonary parenchyma, unchanged.Effusion: None.Aorta: No significant abnormality.Heart: No acute radiographic abnormalities.Bones: Degenerative changes of the shoulders and spine.Upper abdomen: Limited evaluation is without significant abnormality.Impression:Stable diffuse bilateral pulmonary coarse interstitial and groundglassopacities.This final report was electronically signed by Dr Alla Ballard MD 17:16 AMDictated By: LIU BALLARDKDate: 06/09/2020 07:16[facility]ERVIEWMETHYLMALONIC [id number] 13:48:00* Test Item Value Reference Range Interpretation Comme [facility] METHYLMALONIC ACID, SERUM (test code = 657957) 201 nmol/L 0-378 N Disclaimer (test code = 577178) Comment This test was developed and its performance characteristics determined by [employer]. It has not been cleared or approved by the Food and Drug Administration. PERFORMED AT: [address] [id number] [employer]: Paulina Dick MD PHONE: [phone] [facility] Medical Center [id number] 06:51:00* Test Item Value Reference Range Interpretation Comme [facility] LDH (test code = LDH) 626 U/L 84-246 H [facility] CenterC-REACTIVE [id number] 06:51:00* Test Item Value Reference Range Interpretation Comme [facility] C REACTIVE PROTEIN (test cod e = CRP) 1.2 ng/ml 0.0-0.3 H [facility] CenterPRO-[facility]NP(B-Type Natriuretic Peptide)2020-06-08 06:51:00* Test Item Value Reference Range Interpretation Comme [facility] Pro-BNP(B-Peptide ) (test code = PROBNP) 652 pg/ml 0-125 H THE METHODOLOGY FOR DETECTION OF B-NATRIURETIC PEPTIDE HAS BEEN CHANGED TO "NT pro-BNP". THE NORMAL RANGES HAVE CHANGED. PLEASE NOTE THAT RANGES ARE DEFINED BY THE AGE OF THE PATIENT. (<75 years old = 0-125 pg/ml 75years and older = 0-450pg/ml). VALUES ARE NOT INTERCHANGEABLE BETWEEN METHODS. 05-01-2006 [facility]-[id number] 06:51:00* Test Item Value Reference Range Interpretation Comme nts Sodium (test code = NA) 137 mmol/l 136-146 Potassium (test code = K) 3.7 mmol/l 3.5-5.1 Chloride (test code = CL) 103 mmol/l 98-107 Calcium (test code = CALC) 7.8 mg/dl 8.5-10.1 L CO2 (test code = CO2) 30 mmol/l 21-32 Glucose (test code = GLU) 77 mg/dl 74-106 BUN (test code = BUN) 15.0 mg/dl 7.0-18.0 Creatinine (test code = CREA) 0.4 mg/dl 0.5-1.3 L T Protein (test code = TP) 5.2 gm/dl 6.4-8.2 L Albumin (test code = ALB) 2.1 gm/dl 3.4-5.0 L A/G Ratio (test code = AGRAT) 0.7 % 1.1-2.2 L AST (SGOT) (test code = AST) 77 U/L 15-37 H ALT (SGPT) (test code = ALT) 64 U/L 13-61 H Alkaline Phos (test code = ALKP) 303 U/L 45-117 H Total Bilirubin (test code = TBIL) 1.5 mg/dl 0.2-1.0 H Globulin (test code = GLOBU) 3.1 gm/dl 2.3-3.5 Calcium, Corrected (test code = CALCCORR) 9.3 mg/dl 8.4-10.2 Various formulas exist for corrected serum calcium results, each yielding different values. This corrected result was based on the formula: Corrected Calcium = SerumCalcium + [0.8 * ( 4 - SerumAlbumin)] EGFR if (test code = EGFRAA) >60 mL/min/1.73m\\ S\\2 EGFR if Non- (test code = EGFRNA) >60 mL/min/1.73m\\ S\\2 Estimated Glomerular Filtration Rate (eGFR) Reference Intervals Decision Points for 18 years and older and average body mass: >= 60 Does not exclude kidney disease. 30 - 59 Suggests moderate chronic kidney disease and indicates the need for further investigation including assessment of proteinuria and cardiovascular factors. < 30 Usually indicates a need for referral for assessment and management of chronic kidney failure. [facility] ClaireMcxvhw-[id number] 06:51:00* Test Item Value Reference Range Interpretation Comme nts Ferritin (test code = FERR) 2114.1 ng/ml 8.0-252.0 H [facility] CenterD-DIMER [id number] 06:35:00* Test Item Value Reference Range Interpretation Comme nts D DIMER (test code = D DIM) 13.98 mg/L FEU 0.19-0.50 H METHOD CHANGE: Due to the discontinued mehodology currently in use, a change in the testing method is necessary. The Reference Ranges will change dramatically, and results are obtained by the observance of clotting activation mesured on the [employer] instruments. This same methodology is currently in use for PT/INR , PTT, AND HEPARIN testing in our Labs. The D-Dimer assay is an aid in the evaluation of thromboembolic events, as in DIC, DVT, Pulmonary Embolism, and other thromboembolic diseases, and should not be used without other diagnostic measures, to properly diagnose and treat thromboembolic disease. REFERENCE RANGE: 0.19 - 0.50 mg/L FEU (Fibrinogen Equivalent Units) Cut-Off Value is: > .50 mg/L FEU Note: Results greater than (>) the Cut-Off are to be considered POSITIVE, and significant in the evaluation of thromboembolic diseases. Results less than (<) the Cut-Off are to be considered NEGATIVE, and a low probability of thromboembolic disease. [facility] ClairekinCB WITH AUTO [id number] 05:55:00* Test Item Value Reference Range Interpretation Comme nts WBC (test code = WBC) 12.60 10\\S\\3/ul 4.80-10.80 H RBC (test code = RBC) 4.72 10\\S\\6/ul 4.20-5.40 Hemoglobin (test code = HGB) 16.5 gm/dl 12.0-14.0 H Hematocrit (test code = HCT) 48.3 % 37.0-47.0 H MCV (test code = MCV) 102.3 fL 81.0-99.0 H MCH (test code = MCH) 35.0 pg 27.0-31.0 H MCHC (test code = MCHC) 34.2 gm/dl 33.0-37.0 RDW (test code = RDWVC) 13.4 % 11.5-14.5 Platelet (test code = PLT) 75 10\\S\\3/ul 130-400 L MPV (test code = MPV) 12.1 fL 7.4-10.4 A "NOT MEASURED" RESULTS ARE DISPLAYED WHEN THE INSTRUMENT HAS A SUPPRESSED OR UNREPORTABLE RESULT. THIS WILL MOST OFTEN HAPPEN WITH THE MPV WHEN THERE IS AN ABNORMAL PLATELET DISTRIBUTION DUE TO A CRITICAL LOW VALUE OR PLATELET CLUMPING. THE RDW MAY BE SUPPRESSED IF THERE ARE MULTIPLE PEAKS PRESENT ON THE RBC HISTOGRAM. IN THIS CASE, A MANUAL REVIEW OF THE SLIDE WILL BE PERFORMED, AND RBC MORPHOLOGY WILL BE NOTED ON THE REPORT. NE% (test code = NE) 85.8 % 42.0-75.0 H LY% (test code = LY) 7.9 % 13.0-42.0 L MO% (test code = MO) 3.1 % 4.0-14.0 L EO% (test code = EO) 2.1 % 1.0-5.0 BA% (test code = BA) 0.2 % 0.0-3.0 IG% (test code = IG%) 0.9 % 0.0-0.4 H [facility] CenterC-REACTIVE [id number] 07:37:00* Test Item Value Reference Range Interpretation Comme nts C REACTIVE PROTEIN (test cod e = CRP) 3.4 ng/ml 0.0-0.3 H [facility] ClairekinCMP2021-02-14 07:37:00* Test Item Value Reference Range Interpretation Comme nts Sodium (test code = NA) 140 mmol/l 136-146 Potassium (test code = K) 3.5 mmol/l 3.5-5.1 Chloride (test code = CL) 103 mmol/l 98-107 Calcium (test code = CALC) 7.8 mg/dl 8.5-10.1 L CO2 (test code = CO2) 29 mmol/l 21-32 Glucose (test code = GLU) 92 mg/dl 74-106 BUN (test code = BUN) 16.0 mg/dl 7.0-18.0 Creatinine (test code = CREA) 0.4 mg/dl 0.5-1.3 L T Protein (test code = TP) 5.2 gm/dl 6.4-8.2 L Albumin (test code = ALB) 1.9 gm/dl 3.4-5.0 L A/G Ratio (test code = AGRAT) 0.6 % 1.1-2.2 L AST (SGOT) (test code = AST) 37 U/L 15-37 ALT (SGPT) (test code = ALT) 31 U/L 13-61 Alkaline Phos (test code = ALKP) 274 U/L 45-117 H Total Bilirubin (test code = TBIL) 1.2 mg/dl 0.2-1.0 H Globulin (test code = GLOBU) 3.3 gm/dl 2.3-3.5 Calcium, Corrected (test code = CALCCORR) 9.5 mg/dl 8.4-10.2 Various formulas exist for corrected serum calcium results, each yielding different values. This corrected result was based on the formula: Corrected Calcium = SerumCalcium + [0.8 * ( 4 - SerumAlbumin)] EGFR if (test code = EGFRAA) >60 mL/min/1.73m\\ S\\2 EGFR if Non- (test code = EGFRNA) >60 mL/min/1.73m\\ S\\2 Estimated Glomerular Filtration Rate (eGFR) Reference Intervals Decision Points for 18 years and older and average body mass: >= 60 Does not exclude kidney disease. 30 - 59 Suggests moderate chronic kidney disease and indicates the need for further investigation including assessment of proteinuria and cardiovascular factors. < 30 Usually indicates a need for referral for assessment and management of chronic kidney failure. [facility] CenterUrvfil-[id number] 07:37:00* Test Item Value Reference Range Interpretation Comme nts Ferritin (test code = FERR) 1593.1 ng/ml 8.0-252.0 H [facility]-LufkinPRO-BNP(B-Type Natriuretic Peptide)2020-06-07 07:37:00* Test Item Value Reference Range Interpretation Comme nts Pro-BNP(B-Peptide ) (test code = PROBNP) 866 pg/ml 0-125 H THE METHODOLOGY FOR DETECTION OF B-NATRIURETIC PEPTIDE HAS BEEN CHANGED TO "NT pro-BNP". THE NORMAL RANGES HAVE CHANGED. PLEASE NOTE THAT RANGES ARE DEFINED BY THE AGE OF THE PATIENT. (<75 years old = 0-125 pg/ml 75years and older = 0-450pg/ml). VALUES ARE NOT INTERCHANGEABLE BETWEEN METHODS. 05-01-2006 [facility]fkinLDH[facility]21-[facility] 07:37:00* Test Item Value Reference Range Interpretation Comme nts LDH (test code = LDH) 583 U/L 84-246 H [facility] CenterD-DIMER [id number] 07:02:00* Test Item Value Reference Range Interpretation Comme nts D DIMER (test code = D DIM) 18.58 mg/L FEU 0.19-0.50 H METHOD CHANGE: Due to the discontinued mehodology currently in use, a change in the testing method is necessary. The Reference Ranges will change dramatically, and results are obtained by the observance of clotting activation mesured on the [employer] instruments. This same methodology is currently in use for PT/INR , PTT, AND HEPARIN testing in our Labs. The D-Dimer assay is an aid in the evaluation of thromboembolic events, as in DIC, DVT, Pulmonary Embolism, and other thromboembolic diseases, and should not be used without other diagnostic measures, to properly diagnose and treat thromboembolic disease. REFERENCE RANGE: 0.19 - 0.50 mg/L FEU (Fibrinogen Equivalent Units) Cut-Off Value is: > .50 mg/L FEU Note: Results greater than (>) the Cut-Off are to be considered POSITIVE, and significant in the evaluation of thromboembolic diseases. Results less than (<) the Cut-Off are to be considered NEGATIVE, and a low probability of thromboembolic disease. [facility] ClairekinCB WITH AUTO [id number] 07:01:00* Test Item Value Reference Range Interpretation Comme nts WBC (test code = WBC) 12.60 10\\S\\3/ul 4.80-10.80 H RBC (test code = RBC) 4.70 10\\S\\6/ul 4.20-5.40 Hemoglobin (test code = HGB) 16.2 gm/dl 12.0-14.0 H Hematocrit (test code = HCT) 47.6 % 37.0-47.0 H MCV (test code = MCV) 101.3 fL 81.0-99.0 H MCH (test code = MCH) 34.5 pg 27.0-31.0 H MCHC (test code = MCHC) 34.0 gm/dl 33.0-37.0 RDW (test code = RDWVC) 13.2 % 11.5-14.5 Platelet (test code = PLT) 67 10\\S\\3/ul 130-400 L MPV (test code = MPV) 12.9 fL 7.4-10.4 A "NOT MEASURED" RESULTS ARE DISPLAYED WHEN THE INSTRUMENT HAS A SUPPRESSED OR UNREPORTABLE RESULT. THIS WILL MOST OFTEN HAPPEN WITH THE MPV WHEN THERE IS AN ABNORMAL PLATELET DISTRIBUTION DUE TO A CRITICAL LOW VALUE OR PLATELET CLUMPING. THE RDW MAY BE SUPPRESSED IF THERE ARE MULTIPLE PEAKS PRESENT ON THE RBC HISTOGRAM. IN THIS CASE, A MANUAL REVIEW OF THE SLIDE WILL BE PERFORMED, AND RBC MORPHOLOGY WILL BE NOTED ON THE REPORT. NE% (test code = NE) 89.2 % 42.0-75.0 H LY% (test code = LY) 6.0 % 13.0-42.0 L MO% (test code = MO) 3.0 % 4.0-14.0 L EO% (test code = EO) 0.9 % 1.0-5.0 L BA% (test code = BA) 0.2 % 0.0-3.0 IG% (test code = IG%) 0.7 % 0.0-0.4 H [facility] CenterPRO[facility](B-Type Natriuretic Peptide)2020-06-06 05:40:00* Test Item Value Reference Range Interpretation Comme nts Pro-BNP(B-Peptide ) (test code = PROBNP) 785 pg/ml 0-125 H THE METHODOLOGY FOR DETECTION OF B-NATRIURETIC PEPTIDE HAS BEEN CHANGED TO "NT pro-BNP". THE NORMAL RANGES HAVE CHANGED. PLEASE NOTE THAT RANGES ARE DEFINED BY THE AGE OF THE PATIENT. (<75 years old = 0-125 pg/ml 75years and older = 0-450pg/ml). VALUES ARE NOT INTERCHANGEABLE BETWEEN METHODS. 05-01-2006 [facility] CenterC[facility] [id number] 05:40:00* Test Item Value Reference Range Interpretation Comme nts C REACTIVE PROTEIN (test cod e = CRP) 11.5 ng/ml 0.0-0.3 H [facility] CenterFiinbw-[id number] 05:40:00* Test Item Value Reference Range Interpretation Comme nts Ferritin (test code = FERR) 1518.8 ng/ml 8.0-252.0 H [facility]-[id number] 05:40:00* Test Item Value Reference Range Interpretation Comme nts LDH (test code = LDH) 537 U/L 84-246 H [facility]-QsrulvKLZ3008-03-16 05:40:00* Test Item Value Reference Range Interpretation Comme nts Sodium (test code = NA) 137 mmol/l 136-146 Potassium (test code = K) 3.7 mmol/l 3.5-5.1 Chloride (test code = CL) 102 mmol/l 98-107 Calcium (test code = CALC) 7.3 mg/dl 8.5-10.1 L CO2 (test code = CO2) 29 mmol/l 21-32 Glucose (test code = GLU) 70 mg/dl 74-106 L BUN (test code = BUN) 16.0 mg/dl 7.0-18.0 Creatinine (test code = CREA) 0.4 mg/dl 0.5-1.3 L T Protein (test code = TP) 5.3 gm/dl 6.4-8.2 L Albumin (test code = ALB) 1.7 gm/dl 3.4-5.0 L A/G Ratio (test code = AGRAT) 0.5 % 1.1-2.2 L AST (SGOT) (test code = AST) 29 U/L 15-37 ALT (SGPT) (test code = ALT) 28 U/L 13-61 Alkaline Phos (test code = ALKP) 240 U/L 45-117 H Total Bilirubin (test code = TBIL) 1.7 mg/dl 0.2-1.0 H Globulin (test code = GLOBU) 3.6 gm/dl 2.3-3.5 H Calcium, Corrected (test code = CALCCORR) 9.1 mg/dl 8.4-10.2 Various formulas exist for corrected serum calcium results, each yielding different values. This corrected result was based on the formula: Corrected Calcium = SerumCalcium + [0.8 * ( 4 - SerumAlbumin)] EGFR if (test code = EGFRAA) >60 mL/min/1.73m\\ S\\2 EGFR if Non- (test code = EGFRNA) >60 mL/min/1.73m\\ S\\2 Estimated Glomerular Filtration Rate (eGFR) Reference Intervals Decision Points for 18 years and older and average body mass: >= 60 Does not exclude kidney disease. 30 - 59 Suggests moderate chronic kidney disease and indicates the need for further investigation including assessment of proteinuria and cardiovascular factors. < 30 Usually indicates a need for referral for assessment and management of chronic kidney failure. [facility] CenterD-DIMER [id number] 05:11:00* Test Item Value Reference Range Interpretation Comme nts D DIMER (test code = D DIM) 31.60 mg/L FEU 0.19-0.50 H METHOD CHANGE: Due to the discontinued mehodology currently in use, a change in the testing method is necessary. The Reference Ranges will change dramatically, and results are obtained by the observance of clotting activation mesured on the [employer] instruments. This same methodology is currently in use for PT/INR , PTT, AND HEPARIN testing in our Labs. The D-Dimer assay is an aid in the evaluation of thromboembolic events, as in DIC, DVT, Pulmonary Embolism, and other thromboembolic diseases, and should not be used without other diagnostic measures, to properly diagnose and treat thromboembolic disease. REFERENCE RANGE: 0.19 - 0.50 mg/L FEU (Fibrinogen Equivalent Units) Cut-Off Value is: > .50 mg/L FEU Note: Results greater than (>) the Cut-Off are to be considered POSITIVE, and significant in the evaluation of thromboembolic diseases. Results less than (<) the Cut-Off are to be considered NEGATIVE, and a low probability of thromboembolic disease. [facility] WITH AUTO [id number] 04:55:00* Test Item Value Reference Range Interpretation Comme nts WBC (test code = WBC) 12.27 10\\S\\3/ul 4.80-10.80 H RBC (test code = RBC) 4.56 10\\S\\6/ul 4.20-5.40 Hemoglobin (test code = HGB) 15.8 gm/dl 12.0-14.0 H Hematocrit (test code = HCT) 45.9 % 37.0-47.0 MCV (test code = MCV) 100.7 fL 81.0-99.0 H MCH (test code = MCH) 34.6 pg 27.0-31.0 H MCHC (test code = MCHC) 34.4 gm/dl 33.0-37.0 RDW (test code = RDWVC) 13.2 % 11.5-14.5 Platelet (test code = PLT) 61 10\\S\\3/ul 130-400 L MPV (test code = MPV) 12.3 fL 7.4-10.4 A "NOT MEASURED" RESULTS ARE DISPLAYED WHEN THE INSTRUMENT HAS A SUPPRESSED OR UNREPORTABLE RESULT. THIS WILL MOST OFTEN HAPPEN WITH THE MPV WHEN THERE IS AN ABNORMAL PLATELET DISTRIBUTION DUE TO A CRITICAL LOW VALUE OR PLATELET CLUMPING. THE RDW MAY BE SUPPRESSED IF THERE ARE MULTIPLE PEAKS PRESENT ON THE RBC HISTOGRAM. IN THIS CASE, A MANUAL REVIEW OF THE SLIDE WILL BE PERFORMED, AND RBC MORPHOLOGY WILL BE NOTED ON THE REPORT. NE% (test code = NE) 89.9 % 42.0-75.0 H LY% (test code = LY) 6.2 % 13.0-42.0 L MO% (test code = MO) 2.1 % 4.0-14.0 L EO% (test code = EO) 0.5 % 1.0-5.0 L BA% (test code = BA) 0.2 % 0.0-3.0 IG% (test code = IG%) 1.1 % 0.0-0.4 H [facility]-LufkinXR CHEST AP/PA 1 [id number] 08:19:36Daily while recieving remdesivir or convalescent plasma treatment for COVID [facility] ([facility])Name: YRIS BARNES: 1955 Sex: FProcedures: XR CHEST AP/PA 1 VIEWExam Date: 06/05/2020 5:00 AMOrdering Physician: SALVADOR [facility] [place]lin[place] Indication: [id number]: Covid-19Comparison: Chest radiograph 06/03/20Findings:Technique: Single frontal portable radiograph of the chest.Medical devices: EKG leads and wires overlie the thorax. Surgical clipsoverlie the right axilla.Pneumothorax: No pneumothorax.Lungs: Diffuse groundglass attenuation of the pulmonary parenchyma with slightbibasilar and right midlung predominance.Effusion: None.Aorta: No significant abnormality.Heart: No acute radiographic abnormalities.Bones: Degenerative chu ges of the shoulders and spine.Upper abdomen: Limited evaluation is without significant abnormality.Impression:Stable diffuse groundglass attenuation of the pulmonary parenchyma with slightbibasilar and right midlung predominance. Findings are suspicious for atypicalpneumonia or less likely pulmonary edema.No change from XR CHEST AP/PA 1 VIEW with report dated 06/03/2020 6:19 AM.This final report was electronically signed by Dr Bigg Almodovar MD :14 AMDictated By: BIGG ALMODOVARDate: 06/05/2020 08:14[facility]- REACTIVE [id number] 05:49:00* Test Item Value Reference Range Interpretation Comme nts C REACTIVE PROTEIN (test cod e = CRP) 13.6 ng/ml 0.0-0.3 H [facility] CenterYcsfsc-[id number] 05:49:00* Test Item Value Reference Range Interpretation Comme nts Ferritin (test code = FERR) 1748.2 ng/ml 8.0-252.0 H [facility]-[id number] 05:49:00* Test Item Value Reference Range Interpretation Comme nts Sodium (test code = NA) 135 mmol/l 136-146 L Potassium (test code = K) 3.8 mmol/l 3.5-5.1 Chloride (test code = CL) 101 mmol/l 98-107 Calcium (test code = CALC) 7.8 mg/dl 8.5-10.1 L CO2 (test code = CO2) 29 mmol/l 21-32 Glucose (test code = GLU) 113 mg/dl 74-106 H BUN (test code = BUN) 17.0 mg/dl 7.0-18.0 Creatinine (test code = CREA) 0.4 mg/dl 0.5-1.3 L T Protein (test code = TP) 5.7 gm/dl 6.4-8.2 L Albumin (test code = ALB) 1.7 gm/dl 3.4-5.0 L A/G Ratio (test code = AGRAT) 0.4 % 1.1-2.2 L AST (SGOT) (test code = AST) 42 U/L 15-37 H ALT (SGPT) (test code = ALT) 36 U/L 13-61 Alkaline Phos (test code = ALKP) 286 U/L 45-117 H Total Bilirubin (test code = TBIL) 2.5 mg/dl 0.2-1.0 H Globulin (test code = GLOBU) 4.0 gm/dl 2.3-3.5 H Calcium, Corrected (test code = CALCCORR) 9.6 mg/dl 8.4-10.2 Various formulas exist for corrected serum calcium results, each yielding different values. This corrected result was based on the formula: Corrected Calcium = SerumCalcium + [0.8 * ( 4 - SerumAlbumin)] EGFR if (test code = EGFRAA) >60 mL/min/1.73m\\ S\\2 EGFR if Non- (test code = EGFRNA) >60 mL/min/1.73m\\ S\\2 Estimated Glomerular Filtration Rate (eGFR) Reference Intervals Decision Points for 18 years and older and average body mass: >= 60 Does not exclude kidney disease. 30 - 59 Suggests moderate chronic kidney disease and indicates the need for further investigation including assessment of proteinuria and cardiovascular factors. < 30 Usually indicates a need for referral for assessment and management of chronic kidney failure. [facility]-[id number] 05:49:00* Test Item Value Reference Range Interpretation Comme nts LDH (test code = LDH) 646 U/L 84-246 H [facility] CenterPRO-BNP(B-Type Natriuretic Peptide)2020-06-05 05:49:00* Test Item Value Reference Range Interpretation Comme nts Pro-BNP(B-Peptide ) (test code = PROBNP) 823 pg/ml 0-125 H THE METHODOLOGY FOR DETECTION OF B-NATRIURETIC PEPTIDE HAS BEEN CHANGED TO "NT pro-BNP". THE NORMAL RANGES HAVE CHANGED. PLEASE NOTE THAT RANGES ARE DEFINED BY THE AGE OF THE PATIENT. (<75 years old = 0-125 pg/ml 75years and older = 0-450pg/ml). VALUES ARE NOT INTERCHANGEABLE BETWEEN METHODS. 05-01-2006 [facility] WITH AUTO [id number] 05:21:00* Test Item Value Reference Range Interpretation Comme nts WBC (test code = WBC) 12.50 10\\S\\3/ul 4.80-10.80 H RBC (test code = RBC) 4.62 10\\S\\6/ul 4.20-5.40 Hemoglobin (test code = HGB) 16.2 gm/dl 12.0-14.0 H Hematocrit (test code = HCT) 46.6 % 37.0-47.0 MCV (test code = MCV) 100.9 fL 81.0-99.0 H MCH (test code = MCH) 35.1 pg 27.0-31.0 H MCHC (test code = MCHC) 34.8 gm/dl 33.0-37.0 RDW (test code = RDWVC) 13.3 % 11.5-14.5 Platelet (test code = PLT) 69 10\\S\\3/ul 130-400 L MPV (test code = MPV) 12.3 fL 7.4-10.4 A "NOT MEASURED" RESULTS ARE DISPLAYED WHEN THE INSTRUMENT HAS A SUPPRESSED OR UNREPORTABLE RESULT. THIS WILL MOST OFTEN HAPPEN WITH THE MPV WHEN THERE IS AN ABNORMAL PLATELET DISTRIBUTION DUE TO A CRITICAL LOW VALUE OR PLATELET CLUMPING. THE RDW MAY BE SUPPRESSED IF THERE ARE MULTIPLE PEAKS PRESENT ON THE RBC HISTOGRAM. IN THIS CASE, A MANUAL REVIEW OF THE SLIDE WILL BE PERFORMED, AND RBC MORPHOLOGY WILL BE NOTED ON THE REPORT. NE% (test code = NE) 91.4 % 42.0-75.0 H LY% (test code = LY) 5.3 % 13.0-42.0 L MO% (test code = MO) 1.9 % 4.0-14.0 L EO% (test code = EO) 0.2 % 1.0-5.0 L BA% (test code = BA) 0.2 % 0.0-3.0 IG% (test code = IG%) 1.0 % 0.0-0.4 H Neutrophils (test code = NEUTR) 93 10\\S\\3/ul 42-75 H No previous valu e was reported. A value of 93 was entered by [id number] on 06/05/2020 05:21 Bands (test code = BANDM) 4 % 0-2 H No previous valu e was reported. A value of 4 was entered by [id number] on 06/05/2020 05:21 Lymphocytes (test code = LYMPH) 3 % 13-42 L No previous valu e was reported. A value of 3 was entered by [id number] on 06/05/2020 05:21 RBC Morphology (test code = RBCMOR) slight Anisocytosis No previous value was reported. A value of slight Anisocytosis was entered by [id number] on 06/05/2020 05:21 Platelet Morphology (test code = PLTMORPH) Platelet clumping Decreased platelets No previous value was reported. A value of Platelet clumping Decreased platelets was entered by [id number] on 06/05/2020 05:21 [facility]-LufkinD-DIMER [id number] 04:50:00* Test Item Value Reference Range Interpretation Comme nts D DIMER (test code = D DIM) 17.98 mg/L FEU 0.19-0.50 H METHOD CHANGE: Due to the discontinued mehodology currently in use, a change in the testing method is necessary. The Reference Ranges will change dramatically, and results are obtained by the observance of clotting activation mesured on the [employer] instruments. This same methodology is currently in use for PT/INR , PTT, AND HEPARIN testing in our Labs. The D-Dimer assay is an aid in the evaluation of thromboembolic events, as in DIC, DVT, Pulmonary Embolism, and other thromboembolic diseases, and should not be used without other diagnostic measures, to properly diagnose and treat thromboembolic disease. REFERENCE RANGE: 0.19 - 0.50 mg/L FEU (Fibrinogen Equivalent Units) Cut-Off Value is: > .50 mg/L FEU Note: Results greater than (>) the Cut-Off are to be considered POSITIVE, and significant in the evaluation of thromboembolic diseases. Results less than (<) the Cut-Off are to be considered NEGATIVE, and a low probability of thromboembolic disease. [facility] CenterkinS PERC PLMNT MIDLINE NO PORT > 5 y/o W/IMAGING 2020-06-04 16:30:05 [facility] ([facility]/)Name: YRIS BARNES MIKE : 1955 Sex: FProcedure: SP PERC PLMNT MIDLINE NO PORT > 5 y/o W/IMAGINGOrder Date: 06/04/2020 11:09 AMOrdering Provider: SAL[facility]ITALlinical Indication: Vascular accessTechnique:The patient was placed supineon the exam table with the left arm abducted. Anultrasound was performed to locate a proper venous access site. The upper armwas prepped and draped in the usual sterile fashion. Utilizing 1% lidocainesolution, the skin and subcutaneous tissues overlying the basilic vein wereanesthetized. Ultrasound evaluation demonstrates the vessels to be patent and apermanent ultrasound image was stored in the medical record for documentation.Then, under ultrasound guidance, the vein was punctured with a micropunctureneedle and a 0.018 guidewire was advanced into the selected vessel. The vesselswere patent and there was a permanent image stored for the permanent medicalrecord. The needle was removed and the 20 gauge Powerglide catheter was advancedover the wire into the left axillary vein. The wire was removed. The catheterwas secured to the skin in the usual fashion. The patient tolerated theprocedure well and there were no immediate complications.Impression:1. Successful upper extremity vascular access.This final report was electronically signed by Dr Bigg Almodovar MD 14:24 PMDictated By: BIGG ALMODOVARDate: 06/04/2020 16:24[facility] WITH AUTO [id number] 11:12:00* Test Item Value Reference Range Interpretation Comme nts WBC (test code = WBC) 11.95 10\\S\\3/ul 4.80-10.80 H RBC (test code = RBC) 4.52 10\\S\\6/ul 4.20-5.40 Hemoglobin (test code = HGB) 16.0 gm/dl 12.0-14.0 H Hematocrit (test code = HCT) 45.6 % 37.0-47.0 MCV (test code = MCV) 100.9 fL 81.0-99.0 H MCH (test code = MCH) 35.4 pg 27.0-31.0 H MCHC (test code = MCHC) 35.1 gm/dl 33.0-37.0 RDW (test code = RDWVC) 13.4 % 11.5-14.5 Platelet (test code = PLT) 92 10\\S\\3/ul 130-400 L Platelet count verified by recollection. 06/04/2020 MR MPV (test code = MPV) 12.5 fL 7.4-10.4 A "NOT MEASURED" RESULTS ARE DISPLAYED WHEN THE INSTRUMENT HAS A SUPPRESSED OR UNREPORTABLE RESULT. THIS WILL MOST OFTEN HAPPEN WITH THE MPV WHEN THERE IS AN ABNORMAL PLATELET DISTRIBUTION DUE TO A CRITICAL LOW VALUE OR PLATELET CLUMPING. THE RDW MAY BE SUPPRESSED IF THERE ARE MULTIPLE PEAKS PRESENT ON THE RBC HISTOGRAM. IN THIS CASE, A MANUAL REVIEW OF THE SLIDE WILL BE PERFORMED, AND RBC MORPHOLOGY WILL BE NOTED ON THE REPORT. NE% (test code = NE) 90.0 % 42.0-75.0 H LY% (test code = LY) 4.9 % 13.0-42.0 L MO% (test code = MO) 3.4 % 4.0-14.0 L EO% (test code = EO) 0.3 % 1.0-5.0 L BA% (test code = BA) 0.2 % 0.0-3.0 IG% (test code = IG%) 1.2 % 0.0-0.4 H NRBC, Auto (test code = NRBC_AUTO) 0 /100WBC 0-2 RBC Morphology (test code = RBCMOR) Slight Anisocytosis No previous value was reported. A value of Slight Anisocytosis was entered by [id number] on 06/04/2020 11:12 Platelet Morphology (test code = PLTMORPH) Decreased platelets Occasional Giant platelets No previous value was reported. A value of Decreased platelets Occasional Giant platelets was entered by [id number] on 06/04/2020 11:12 [facility] CenterNtvvxo-[id number] 06:44:00* Test Item Value Reference Range Interpretation Comme nts Ferritin (test code = FERR) 1791.2 ng/ml 8.0-252.0 H [id number] 06:44:00* Test Item Value Reference Range Interpretation Comme nts Sodium (test code = NA) 137 mmol/l 136-146 Potassium (test code = K) 3.8 mmol/l 3.5-5.1 Chloride (test code = CL) 102 mmol/l 98-107 Calcium (test code = CALC) 8.1 mg/dl 8.5-10.1 L CO2 (test code = CO2) 31 mmol/l 21-32 Glucose (test code = GLU) 94 mg/dl 74-106 BUN (test code = BUN) 18.0 mg/dl 7.0-18.0 Creatinine (test code = CREA) 0.5 mg/dl 0.5-1.3 T Protein (test code = TP) 5.4 gm/dl 6.4-8.2 L Albumin (test code = ALB) 1.7 gm/dl 3.4-5.0 L A/G Ratio (test code = AGRAT) 0.5 % 1.1-2.2 L AST (SGOT) (test code = AST) 42 U/L 15-37 H ALT (SGPT) (test code = ALT) 31 U/L 13-61 Alkaline Phos (test code = ALKP) 306 U/L 45-117 H Total Bilirubin (test code = TBIL) 2.5 mg/dl 0.2-1.0 H Globulin (test code = GLOBU) 3.7 gm/dl 2.3-3.5 H Calcium, Corrected (test code = CALCCORR) 9.9 mg/dl 8.4-10.2 Various formulas exist for corrected serum calcium results, each yielding different values. This corrected result was based on the formula: Corrected Calcium = SerumCalcium + [0.8 * ( 4 - SerumAlbumin)] EGFR if (test code = EGFRAA) >60 mL/min/1.73m\\ S\\2 EGFR if Non- (test code = EGFRNA) >60 mL/min/1.73m\\ S\\2 Estimated Glomerular Filtration Rate (eGFR) Reference Intervals Decision Points for 18 years and older and average body mass: >= 60 Does not exclude kidney disease. 30 - 59 Suggests moderate chronic kidney disease and indicates the need for further investigation including assessment of proteinuria and cardiovascular factors. < 30 Usually indicates a need for referral for assessment and management of chronic kidney failure. [facility]-LufkinPRO-BNP(B-Type Natriuretic Peptide)2020-06-04 06:44:00* Test Item Value Reference Range Interpretation Comme nts Pro-BNP(B-Peptid e) (test code = PROBNP) 1367 pg/ml 0-125 H THE METHODOLOGY FOR DETECTION OF B-NATRIURETIC PEPTIDE HAS BEEN CHANGED TO "NT pro-BNP". THE NORMAL RANGES HAVE CHANGED. PLEASE NOTE THAT RANGES ARE DEFINED BY THE AGE OF THE PATIENT. (<75 years old = 0-125 pg/ml 75years and older = 0-450pg/ml). VALUES ARE NOT INTERCHANGEABLE BETWEEN METHODS. 05-01-2006 [facility]-[id number] 06:44:00* Test Item Value Reference Range Interpretation Comme nts LDH (test code = LDH) 678 U/L 84-246 H [facility]-LufkinC-REACTIVE [id number] 06:44:00* Test Item Value Reference Range Interpretation Comme nts C REACTIVE PROTEIN (test cod e = CRP) 12.3 ng/ml 0.0-0.3 H [facility] CenterD-DIMER [id number] 06:32:00* Test Item Value Reference Range Interpretation Comme nts D DIMER (test code = D DIM) 14.57 mg/L FEU 0.19-0.50 H METHOD CHANGE: Due to the discontinued mehodology currently in use, a change in the testing method is necessary. The Reference Ranges will change dramatically, and results are obtained by the observance of clotting activation mesured on the [employer] instruments. This same methodology is currently in use for PT/INR , PTT, AND HEPARIN testing in our Labs. The D-Dimer assay is an aid in the evaluation of thromboembolic events, as in DIC, DVT, Pulmonary Embolism, and other thromboembolic diseases, and should not be used without other diagnostic measures, to properly diagnose and treat thromboembolic disease. REFERENCE RANGE: 0.19 - 0.50 mg/L FEU (Fibrinogen Equivalent Units) Cut-Off Value is: > .50 mg/L FEU Note: Results greater than (>) the Cut-Off are to be considered POSITIVE, and significant in the evaluation of thromboembolic diseases. Results less than (<) the Cut-Off are to be considered NEGATIVE, and a low probability of thromboembolic disease. [facility] CenterUzawyw-XwuuliYKMz2583-83-11 03:05:00* Test Item Value Reference Range Interpretation Comme nts pH (ABG) (test code = BGPH) 7.445 7.350-7.450 pCO2(T) (test code = BGPCO2(T)) 43.7 mm Hg 35.0-45.0 pO2(T) (test code = BGPO2(T)) 41.5 mm Hg 80.0-100.0 LL sO2 (test code = BGSO2) 77.9 % 90.0-99.0 L Na+ (test code = BGCNA+) 137.5 mmol/l 135.0-148.0 K+ (test code = BGCK+) 3.61 mmol/l 3.50-4.50 Ca2+ (test code = BGCCA2+) 1.170 mmol/l 1.150-1.290 Cl- (test code = BGCCL-) 101.0 mmol/l 98-107 tHb (test code = BGCTHB) 14.4 gm/dl 11.5-17.4 O2Hb (test code = QHRN2AS) 75.9 % 95.0-99.0 LL COHb (test code = BGFCOHB) <2.80 % 0.5-2.5 H MetHB (test code = BGMETHB) <1.30 % 0.4-1.5 N Barometric Pressure (test code = BGBARO) 763.3 mm Hg 450.0-1000.0 BE(act) (test code = BGBEACT) 5 mmol/l HCO3 (test code = BGHCO3) 28 meq/L 22-26 H ctCO2(B) (test code = BGCTCO2(B)) 26 mmol/l FIO2 (fO2(I) (test code = BGFIO2) 1.00 % Drawn By (test code = BGDRAWNBY) EARL KAHN Collection Date (test code = BGDTCOL) 06/04/2020 Collection Time (test code = BGCTM) 03:01 Sample Site (test code = BGSAMPLESITE) L Radial Sample Type (test code = BGSAMPLETYPE) Arterial Allens Test (test code = BGALLEN) Acceptable Notified By (test code = BGNOTIFIEDBY) EARL KAHN Notified Whom (test code = BGNOTIFIEDWHOM) RN Date Notified (test code = BGDTNOTIFIED) 06/04/2020 Time Notified (test code = BGTMNOTIFIED) 03:01 O2 Device (test code = PVA7QOC1) Vapor[employer]m & NRB Instrument ID (test code = BGINSTRID) [id number] Comments (test code = BGCOMMENTS) 40L 100% VAPO and 100% NRB Reported By (test code = BGREPORTEDBY) EARL KAHN [facility]-LufkinD-DIMER [id number] 06:33:00* Test Item Value Reference Range Interpretation Comme nts D DIMER (test code = D DIM) 5.76 mg/L FEU 0.19-0.50 H METHOD CHANGE: Due to the discontinued mehodology currently in use, a change in the testing method is necessary. The Reference Ranges will change dramatically, and results are obtained by the observance of clotting activation mesured on the [employer] instruments. This same methodology is currently in use for PT/INR , PTT, AND HEPARIN testing in our Labs. The D-Dimer assay is an aid in the evaluation of thromboembolic events, as in DIC, DVT, Pulmonary Embolism, and other thromboembolic diseases, and should not be used without other diagnostic measures, to properly diagnose and treat thromboembolic disease. REFERENCE RANGE: 0.19 - 0.50 mg/L FEU (Fibrinogen Equivalent Units) Cut-Off Value is: > .50 mg/L FEU Note: Results greater than (>) the Cut-Off are to be considered POSITIVE, and significant in the evaluation of thromboembolic diseases. Results less than (<) the Cut-Off are to be considered NEGATIVE, and a low probability of thromboembolic disease. [facility]-LufkinC-REACTIVE [id number] 06:27:00* Test Item Value Reference Range Interpretation Comme [facility] C REACTIVE PROTEIN (test cod e = CRP) 1.2 ng/ml 0.0-0.3 H [facility] CenterFERRITIN2021-02-10 06:27:00* Test Item Value Reference Range Interpretation Comme [facility] Ferritin (test code = FERR) 666.7 ng/ml 8.0-252.0 H [facility]-RqouhnXHH5027-34-90 06:27:00* Test Item Value Reference Range Interpretation Comme [facility] LDH (test code = LDH) 595 U/L 84-246 H [facility]PRO-[facility]NP(B-Type Natriuretic Peptide)2020-06-03 06:27:00* Test Item Value Reference Range Interpretation Comme [facility] Pro-BNP(B-Peptide ) (test code = PROBNP) 76 pg/ml 0-125 THE METHODOLOGY FOR DETECTION OF B-NATRIURETIC PEPTIDE HAS BEEN CHANGED TO "NT pro-BNP". THE NORMAL RANGES HAVE CHANGED. PLEASE NOTE THAT RANGES ARE DEFINED BY THE AGE OF THE PATIENT. (<75 years old = 0-125 pg/ml 75years and older = 0-450pg/ml). VALUES ARE NOT INTERCHANGEABLE BETWEEN METHODS. 05-01-2006 [facility]-[id number] 06:27:00* Test Item Value Reference Range Interpretation Comme nts Sodium (test code = NA) 132 mmol/l 136-146 L Potassium (test code = K) 3.9 mmol/l 3.5-5.1 Chloride (test code = CL) 97 mmol/l 98-107 L Calcium (test code = CALC) 8.4 mg/dl 8.5-10.1 L CO2 (test code = CO2) 32 mmol/l 21-32 Glucose (test code = GLU) 157 mg/dl 74-106 H BUN (test code = BUN) 27.0 mg/dl 7.0-18.0 H Creatinine (test code = CREA) 0.7 mg/dl 0.5-1.3 T Protein (test code = TP) 6.9 gm/dl 6.4-8.2 Albumin (test code = ALB) 2.7 gm/dl 3.4-5.0 L A/G Ratio (test code = AGRAT) 0.6 % 1.1-2.2 L AST (SGOT) (test code = AST) 33 U/L 15-37 ALT (SGPT) (test code = ALT) 36 U/L 13-61 Alkaline Phos (test code = ALKP) 208 U/L 45-117 H Total Bilirubin (test code = TBIL) 0.6 mg/dl 0.2-1.0 Globulin (test code = GLOBU) 4.2 gm/dl 2.3-3.5 H Calcium, Corrected (test code = CALCCORR) 9.4 mg/dl 8.4-10.2 Various formulas exist for corrected serum calcium results, each yielding different values. This corrected result was based on the formula: Corrected Calcium = SerumCalcium + [0.8 * ( 4 - SerumAlbumin)] EGFR if (test code = EGFRAA) >60 mL/min/1.73m\\ S\\2 EGFR if Non- (test code = EGFRNA) >60 mL/min/1.73m\\ S\\2 Estimated Glomerular Filtration Rate (eGFR) Reference Intervals Decision Points for 18 years and older and average body mass: >= 60 Does not exclude kidney disease. 30 - 59 Suggests moderate chronic kidney disease and indicates the need for further investigation including assessment of proteinuria and cardiovascular factors. < 30 Usually indicates a need for referral for assessment and management of chronic kidney failure. [facility]-LufkinXR CHEST AP/PA 1 [id number] 06:25:01Daily while recieving remdesivir or convalescent plasma treatment for COVID [facility])Name: YRIS BARNES : 1955 Sex: FProcedures: XR CHEST AP/PA 1 VIEWExam Date: 06/03/2020 5:00 AMOrdering Physician: SALVADOR MOHINIClinical Indication: [id number]: Covid-19Comparison: Chest radiograph May 31, 2020Findings:Technique: Single frontal portable radiograph of the chest.Medical devices: EKG leads and wires overlie the thorax. Surgical clipsoverlie the right axilla.Pneumothorax: No pneumothorax.Lungs: Diffuse groundglass attenuation of the pulmonary parenchyma with slightbibasilar and right midlung predominance.Effusion: None.Aorta: No significant abnormality.Heart: No acute radiographic abnormalities.Bones: Degenerative changes of the shoulders and spine.Upper abdomen: Limited evaluation is without significant abnormality.Impression:Stable diffuse groundglass attenuation of the pulmonary parenchyma with slightbibasilar and right midlung predominance. Findings are suspicious for atypicalpneumonia or less likely pulmonary edema.This final report was electronically signed by Dr Alla Ballard MD :19 AMDictated By: LIU BALLARDKDate: 06/03/2020 06:19[facility] WITH AUTO [id number] 06:04:00* Test Item Value Reference Range Interpretation Comme nts WBC (test code = WBC) 9.53 10\\S\\3/ul 4.80-10.80 RBC (test code = RBC) 4.59 10\\S\\6/ul 4.20-5.40 Hemoglobin (test code = HGB) 11.9 gm/dl 12.0-14.0 L Hematocrit (test code = HCT) 37.6 % 37.0-47.0 MCV (test code = MCV) 81.9 fL 81.0-99.0 MCH (test code = MCH) 25.9 pg 27.0-31.0 L MCHC (test code = MCHC) 31.6 gm/dl 33.0-37.0 L RDW (test code = RDWVC) 13.2 % 11.5-14.5 Platelet (test code = PLT) 330 10\\S\\3/ul 130-400 MPV (test code = MPV) 10.0 fL 7.4-10.4 A "NOT MEASURED" RESULTS ARE DISPLAYED WHEN THE INSTRUMENT HAS A SUPPRESSED OR UNREPORTABLE RESULT. THIS WILL MOST OFTEN HAPPEN WITH THE MPV WHEN THERE IS AN ABNORMAL PLATELET DISTRIBUTION DUE TO A CRITICAL LOW VALUE OR PLATELET CLUMPING. THE RDW MAY BE SUPPRESSED IF THERE ARE MULTIPLE PEAKS PRESENT ON THE RBC HISTOGRAM. IN THIS CASE, A MANUAL REVIEW OF THE SLIDE WILL BE PERFORMED, AND RBC MORPHOLOGY WILL BE NOTED ON THE REPORT. NE% (test code = NE) 88.4 % 42.0-75.0 H LY% (test code = LY) 7.2 % 13.0-42.0 L MO% (test code = MO) 3.4 % 4.0-14.0 L EO% (test code = EO) 0.0 % 1.0-5.0 L BA% (test code = BA) 0.1 % 0.0-3.0 IG% (test code = IG%) 0.9 % 0.0-0.4 [facility] [id number] 07:28:00* Test Item Value Reference Range Interpretation Comme [facility] C REACTIVE PROTEIN (test cod e = CRP) 27.2 ng/ml 0.0-0.3 H [facility]-[id number] 07:28:00* Test Item Value Reference Range Interpretation Comme nts LDH (test code = LDH) 683 U/L 84-246 H [facility]-XmxratAST2205-20-36 07:28:00* Test Item Value Reference Range Interpretation Comme nts Sodium (test code = NA) 137 mmol/l 136-146 Potassium (test code = K) 3.5 mmol/l 3.5-5.1 Chloride (test code = CL) 101 mmol/l 98-107 Calcium (test code = CALC) 8.0 mg/dl 8.5-10.1 L CO2 (test code = CO2) 27 mmol/l 21-32 Glucose (test code = GLU) 72 mg/dl 74-106 L BUN (test code = BUN) 19.0 mg/dl 7.0-18.0 H Creatinine (test code = CREA) 0.6 mg/dl 0.5-1.3 T Protein (test code = TP) 5.5 gm/dl 6.4-8.2 L Albumin (test code = ALB) 1.5 gm/dl 3.4-5.0 L A/G Ratio (test code = AGRAT) 0.4 % 1.1-2.2 L AST (SGOT) (test code = AST) 53 U/L 15-37 H ALT (SGPT) (test code = ALT) 39 U/L 13-61 Alkaline Phos (test code = ALKP) 239 U/L 45-117 H Total Bilirubin (test code = TBIL) 3.5 mg/dl 0.2-1.0 H Globulin (test code = GLOBU) 4.0 gm/dl 2.3-3.5 H Calcium, Corrected (test code = CALCCORR) 10.0 mg/dl 8.4-10.2 Various formulas exist for corrected serum calcium results, each yielding different values. This corrected result was based on the formula: Corrected Calcium = SerumCalcium + [0.8 * ( 4 - SerumAlbumin)] EGFR if (test code = EGFRAA) >60 mL/min/1.73m\\ S\\2 EGFR if Non- (test code = EGFRNA) >60 mL/min/1.73m\\ S\\2 Estimated Glomerular Filtration Rate (eGFR) Reference Intervals Decision Points for 18 years and older and average body mass: >= 60 Does not exclude kidney disease. 30 - 59 Suggests moderate chronic kidney disease and indicates the need for further investigation including assessment of proteinuria and cardiovascular factors. < 30 Usually indicates a need for referral for assessment and management of chronic kidney failure. [facility]-LufkinPRO-BNP(B-Type Natriuretic Peptide)2020-06-02 07:28:00* Test Item Value Reference Range Interpretation Comme nts Pro-BNP(B-Peptid e) (test code = PROBNP) 1038 pg/ml 0-125 H THE METHODOLOGY FOR DETECTION OF B-NATRIURETIC PEPTIDE HAS BEEN CHANGED TO "NT pro-BNP". THE NORMAL RANGES HAVE CHANGED. PLEASE NOTE THAT RANGES ARE DEFINED BY THE AGE OF THE PATIENT. (<75 years old = 0-125 pg/ml 75years and older = 0-450pg/ml). VALUES ARE NOT INTERCHANGEABLE BETWEEN METHODS. 05-01-2006 [facility]-[id number] 07:28:00* Test Item Value Reference Range Interpretation Comme nts Ferritin (test code = FERR) 2443.8 ng/ml 8.0-252.0 H [facility] [id number] 07:03:00* Test Item Value Reference Range Interpretation Comme nts D DIMER (test code = D DIM) 30.99 mg/L FEU 0.19-0.50 H METHOD CHANGE: Due to the discontinued mehodology currently in use, a change in the testing method is necessary. The Reference Ranges will change dramatically, and results are obtained by the observance of clotting activation mesured on the [employer] instruments. This same methodology is currently in use for PT/INR , PTT, AND HEPARIN testing in our Labs. The D-Dimer assay is an aid in the evaluation of thromboembolic events, as in DIC, DVT, Pulmonary Embolism, and other thromboembolic diseases, and should not be used without other diagnostic measures, to properly diagnose and treat thromboembolic disease. REFERENCE RANGE: 0.19 - 0.50 mg/L FEU (Fibrinogen Equivalent Units) Cut-Off Value is: > .50 mg/L FEU Note: Results greater than (>) the Cut-Off are to be considered POSITIVE, and significant in the evaluation of thromboembolic diseases. Results less than (<) the Cut-Off are to be considered NEGATIVE, and a low probability of thromboembolic disease. [facility] WITH AUTO [id number] 06:51:00* Test Item Value Reference Range Interpretation Comme nts WBC (test code = WBC) 13.37 10\\S\\3/ul 4.80-10.80 H RBC (test code = RBC) 4.82 10\\S\\6/ul 4.20-5.40 Hemoglobin (test code = HGB) 16.9 gm/dl 12.0-14.0 H Hematocrit (test code = HCT) 47.9 % 37.0-47.0 H MCV (test code = MCV) 99.4 fL 81.0-99.0 H MCH (test code = MCH) 35.1 pg 27.0-31.0 H MCHC (test code = MCHC) 35.3 gm/dl 33.0-37.0 RDW (test code = RDWVC) 13.6 % 11.5-14.5 Platelet (test code = PLT) 102 10\\S\\3/ul 130-400 L MPV (test code = MPV) 13.2 fL 7.4-10.4 A "NOT MEASURED" RESULTS ARE DISPLAYED WHEN THE INSTRUMENT HAS A SUPPRESSED OR UNREPORTABLE RESULT. THIS WILL MOST OFTEN HAPPEN WITH THE MPV WHEN THERE IS AN ABNORMAL PLATELET DISTRIBUTION DUE TO A CRITICAL LOW VALUE OR PLATELET CLUMPING. THE RDW MAY BE SUPPRESSED IF THERE ARE MULTIPLE PEAKS PRESENT ON THE RBC HISTOGRAM. IN THIS CASE, A MANUAL REVIEW OF THE SLIDE WILL BE PERFORMED, AND RBC MORPHOLOGY WILL BE NOTED ON THE REPORT. NE% (test code = NE) 94.9 % 42.0-75.0 H LY% (test code = LY) 3.0 % 13.0-42.0 L MO% (test code = MO) 1.3 % 4.0-14.0 L EO% (test code = EO) 0.2 % 1.0-5.0 L BA% (test code = BA) 0.1 % 0.0-3.0 IG% (test code = IG%) 0.5 % 0.0-0.4 H [facility] CenterNssbqp-[id number] 10:37:00* Test Item Value Reference Range Interpretation Comme nts Ferritin (test code = FERR) 3037.2 ng/ml 8.0-252.0 H [facility] CenterQxjglx-JjjqciIFKWTV3676-08-08 10:26:00* Test Item Value Reference Range Interpretation Comme nts Folic Acid (test code = FOLIC) 4.20 ng/ml 3.10-17.50 [facility] [id number] 10:26:00* Test Item Value Reference Range Interpretation Comme nts Iron (test code = FETOT) 57 ug/dl 20-149 TIBC (test code = TIBC) 264 ug/dl 178-500 Iron Saturation (test code = FESAT) 22 % 5-47 [facility] CenterB12, [id number] 10:25:00* Test Item Value Reference Range Interpretation Comme nts B12 (test code = B12) 267 pg/ml 193-986 [facility] IRON BINDING CAPACITY (TIBC)2020-06-01 10:25:00* Test Item Value Reference Range Interpretation Comme nts TIBC (test code = TIBC) 264 ug/dl 250-450 [facility], [id number] 10:25:00* Test Item Value Reference Range Interpretation Comme nts Iron (test code = FETOT) 57 ug/dl 50-170 [facility] CenterCMP2021-02-08 10:16:00* Test Item Value Reference Range Interpretation Comme nts Sodium (test code = NA) 135 mmol/l 137-145 L Potassium (test code = K) 3.6 mmol/l 3.5-5.1 Chloride (test code = CL) 103 mmol/l 98-107 Calcium (test code = CALC) 8.1 mg/dl 8.5-10.1 L CO2 (test code = CO2) 28 mmol/l 21-32 Glucose (test code = GLU) 102 mg/dl 74-106 BUN (test code = BUN) 20.0 mg/dl 7.0-18.0 H Creatinine (test code = CREA) 0.6 mg/dl 0.5-1.3 T Protein (test code = TP) 6.0 gm/dl 6.4-8.2 L Albumin (test code = ALB) 1.9 gm/dl 3.4-5.0 L A/G Ratio (test code = AGRAT) 0.5 % 1.1-2.2 L AST (SGOT) (test code = AST) 97 U/L 15-37 H ALT (SGPT) (test code = ALT) 73 U/L 13-61 H Alkaline Phos (test code = ALKP) 250 U/L 45-117 H Total Bilirubin (test code = TBIL) 5.5 mg/dl 0.2-1.0 H Globulin (test code = GLOBU) 4.1 gm/dl 2.3-3.5 H Calcium, Corrected (test code = CALCCORR) 9.8 mg/dl 8.4-10.2 Various formulas exist for corrected serum calcium results, each yielding different values. This corrected result was based on the formula: Corrected Calcium = SerumCalcium + [0.8 * ( 4 - SerumAlbumin)] EGFR if (test code = EGFRAA) >60 mL/min/1.73m\\ S\\2 EGFR if Non- (test code = EGFRNA) >60 mL/min/1.73m\\ S\\2 Estimated Glomerular Filtration Rate (eGFR) Reference Intervals Decision Points for 18 years and older and average body mass: >= 60 Does not exclude kidney disease. 30 - 59 Suggests moderate chronic kidney disease and indicates the need for further investigation including assessment of proteinuria and cardiovascular factors. < 30 Usually indicates a need for referral for assessment and management of chronic kidney failure. [facility]-[id number] 10:16:00* Test Item Value Reference Range Interpretation Comme nts LDH (test code = LDH) 834 U/L 84-246 H [facility]kinPRO-BNP(B-Type Natriuretic Peptide)2020-06-01 10:14:00* Test Item Value Reference Range Interpretation Comme nts Pro-BNP(B-Peptid e) (test code = PROBNP) 1228 pg/ml 0-125 H THE METHODOLOGY FOR DETECTION OF B-NATRIURETIC PEPTIDE HAS BEEN CHANGED TO "NT pro-BNP". THE NORMAL RANGES HAVE CHANGED. PLEASE NOTE THAT RANGES ARE DEFINED BY THE AGE OF THE PATIENT. (<75 years old = 0-125 pg/ml 75years and older = 0-450pg/ml). VALUES ARE NOT INTERCHANGEABLE BETWEEN METHODS. 05-01-2006 [facility]kinC-REACTIVE [id number] 10:13:00* Test Item Value Reference Range Interpretation Comme nts C REACTIVE PROTEIN (test cod e = CRP) 21.2 ng/ml 0.0-0.3 H [facility] CenterD-[facility]ER [id number] 09:34:00* Test Item Value Reference Range Interpretation Com[facility] D DIMER (test code = D DIM) 28.15 mg/L FEU 0.19-0.50 H METHOD CHANGE: Due to the discontinued mehodology currently in use, a change in the testing method is necessary. The Reference Ranges will change dramatically, and results are obtained by the observance of clotting activation mesured on the [employer] instruments. This same methodology is currently in use for PT/INR , PTT, AND HEPARIN testing in our Labs. The D-Dimer assay is an aid in the evaluation of thromboembolic events, as in DIC, DVT, Pulmonary Embolism, and other thromboembolic diseases, and should not be used without other diagnostic measures, to properly diagnose and treat thromboembolic disease. REFERENCE RANGE: 0.19 - 0.50 mg/L FEU (Fibrinogen Equivalent Units) Cut-Off Value is: > .50 mg/L FEU Note: Results greater than (>) the Cut-Off are to be considered POSITIVE, and significant in the evaluation of thromboembolic diseases. Results less than (<) the Cut-Off are to be considered NEGATIVE, and a low probability of thromboembolic disease. [facility] WITH AUTO [id number] 09:18:00* Test Item Value Reference Range Interpretation Com[facility] WBC (test code = WBC) 14.67 10\\S\\3/ul 4.80-10.80 H RBC (test code = RBC) 5.37 10\\S\\6/ul 4.20-5.40 Hemoglobin (test code = HGB) 18.9 gm/dl 12.0-14.0 H Hematocrit (test code = HCT) 54.7 % 37.0-47.0 H MCV (test code = MCV) 101.9 fL 81.0-99.0 H MCH (test code = MCH) 35.2 pg 27.0-31.0 H MCHC (test code = MCHC) 34.6 gm/dl 33.0-37.0 RDW (test code = RDWVC) 13.7 % 11.5-14.5 Platelet (test code = PLT) 101 10\\S\\3/ul 130-400 L MPV (test code = MPV) 12.2 fL 7.4-10.4 A "NOT MEASURED" RESULTS ARE DISPLAYED WHEN THE INSTRUMENT HAS A SUPPRESSED OR UNREPORTABLE RESULT. THIS WILL MOST OFTEN HAPPEN WITH THE MPV WHEN THERE IS AN ABNORMAL PLATELET DISTRIBUTION DUE TO A CRITICAL LOW VALUE OR PLATELET CLUMPING. THE RDW MAY BE SUPPRESSED IF THERE ARE MULTIPLE PEAKS PRESENT ON THE RBC HISTOGRAM. IN THIS CASE, A MANUAL REVIEW OF THE SLIDE WILL BE PERFORMED, AND RBC MORPHOLOGY WILL BE NOTED ON THE REPORT. NE% (test code = NE) 93.2 % 42.0-75.0 H LY% (test code = LY) 4.4 % 13.0-42.0 L MO% (test code = MO) 1.0 % 4.0-14.0 L EO% (test code = EO) 0.1 % 1.0-5.0 L BA% (test code = BA) 0.3 % 0.0-3.0 IG% (test code = IG%) 1.0 % 0.0-0.4 H [facility]-LufkinPERIPHERAL [id number] 09:48:00MACROCYTOSIS IN LIVER DISEASE VS B12/FOLATE DEFICIENCY. INCREASEHB/HCT IN POLYCYTHEMIA VS DEHYDRATION. LEKOCYTOSIS AND NEUTROPHILIAAS IN INFECTION. DT [id number]/7/[id number] [facility]-LufkinXR CHEST AP/PA 1 [id number] 08:23:10Daily while recieving remdesivir or convalescent plasma treatment for COVID [facility] (LUF/LUANN/SA)Name: YRIS BARNES : [id number] Sex: FProcedures: XR CHEST AP/PA 1 VIEWExam Date: 05/31/2020 5:00 AMOrdering Physician: JAZ LYClinical Indication: [id number]: Covid-19Comparison: Chest radiograph May 30, 2020Findings:Technique: Single frontal portable radiograph of the chest.Medical devices: EKG leads and wires overlie the thorax. Surgical clipsoverlie the right axilla.Pneumothorax: No pneumothorax.Lungs: Diffuse groundglass attenuation of the pulmonary parenchyma with slightbibasilar and right midlung predominance.Effusion: None.Aorta: No significant abnormality.Heart: No acute radiographic abnormalities.Bones: Degenerative changes of the shoulders and spine.Upper abdomen: Limited evaluation is without significant abnor mality.Impression:Diffuse groundglass attenuation of the pulmonary parenchyma with slightbibasilar and right midlung predominance. Findings are suspicious for atypicalpneumonia and/or edema.This final report was electronically signed by Dr Matt Peters MD05/31/2020 8:17 AMDictated By: MATT ALBERTODate: 05/31/2020 08:17[facility]-REACTIVE [id number] 06:11:00* Test Item Value Reference Range Interpretation Com[facility] C REACTIVE PROTEIN (test cod e = CRP) 3.0 ng/ml 0.0-0.3 H [facility] CenterFfrhgh-[id number] 06:11:00* Test Item Value Reference Range Interpretation Com[facility] Ferritin (test code = FERR) 2099.6 ng/ml 8.0-252.0 H [facility]-PnvkarCZW6052-76-87 06:11:00* Test Item Value Reference Range Interpretation Comme nts Sodium (test code = NA) 138 mmol/l 136-146 Potassium (test code = K) 3.9 mmol/l 3.5-5.1 Chloride (test code = CL) 105 mmol/l 98-107 Calcium (test code = CALC) 8.0 mg/dl 8.5-10.1 L CO2 (test code = CO2) 27 mmol/l 21-32 Glucose (test code = GLU) 89 mg/dl 74-106 BUN (test code = BUN) 28.0 mg/dl 7.0-18.0 H Creatinine (test code = CREA) 0.7 mg/dl 0.5-1.3 T Protein (test code = TP) 5.8 gm/dl 6.4-8.2 L Albumin (test code = ALB) 1.8 gm/dl 3.4-5.0 L A/G Ratio (test code = AGRAT) 0.5 % 1.1-2.2 L AST (SGOT) (test code = AST) 158 U/L 15-37 H ALT (SGPT) (test code = ALT) 88 U/L 13-61 H Alkaline Phos (test code = ALKP) 238 U/L 45-117 H Total Bilirubin (test code = TBIL) 2.7 mg/dl 0.2-1.0 H Globulin (test code = GLOBU) 4.0 gm/dl 2.3-3.5 H Calcium, Corrected (test code = CALCCORR) 9.8 mg/dl 8.4-10.2 Various formulas exist for corrected serum calcium results, each yielding different values. This corrected result was based on the formula: Corrected Calcium = SerumCalcium + [0.8 * ( 4 - SerumAlbumin)] EGFR if (test code = EGFRAA) >60 mL/min/1.73m\\ S\\2 EGFR if Non- (test code = EGFRNA) >60 mL/min/1.73m\\ S\\2 Estimated Glomerular Filtration Rate (eGFR) Reference Intervals Decision Points for 18 years and older and average body mass: >= 60 Does not exclude kidney disease. 30 - 59 Suggests moderate chronic kidney disease and indicates the need for further investigation including assessment of proteinuria and cardiovascular factors. < 30 Usually indicates a need for referral for assessment and management of chronic kidney failure. [facility]-[id number] 06:11:00* Test Item Value Reference Range Interpretation Comme nts LDH (test code = LDH) 646 U/L 84-246 H [facility]ufkinPRO-BNP(B-Type Natriuretic Peptide)2020-05-31 06:11:00* Test Item Value Reference Range Interpretation Comme nts Pro-BNP(B-Peptide ) (test code = PROBNP) 998 pg/ml 0-125 H THE METHODOLOGY FOR DETECTION OF B-NATRIURETIC PEPTIDE HAS BEEN CHANGED TO "NT pro-BNP". THE NORMAL RANGES HAVE CHANGED. PLEASE NOTE THAT RANGES ARE DEFINED BY THE AGE OF THE PATIENT. (<75 years old = 0-125 pg/ml 75years and older = 0-450pg/ml). VALUES ARE NOT INTERCHANGEABLE BETWEEN METHODS. 05-01-2006 [facility] WITH AUTO [id number] 05:54:00* Test Item Value Reference Range Interpretation Comments WBC (test code = WBC) 12.13 10\\S\\3/ul 4.80-10.80 H RBC (test code = RBC) 5.37 10\\S\\6/ul 4.20-5.40 Hemoglobin (test code = HGB) 18.6 gm/dl 12.0-14.0 H Hematocrit (test code = HCT) 54.1 % 37.0-47.0 H MCV (test code = MCV) 100.7 fL 81.0-99.0 H MCH (test code = MCH) 34.6 pg 27.0-31.0 H MCHC (test code = MCHC) 34.4 gm/dl 33.0-37.0 RDW (test code = RDWVC) 13.7 % 11.5-14.5 Platelet (test code = PLT) 164 10\\S\\3/ul 130-400 MPV (test code = MPV) 12.5 fL 7.4-10.4 A "NOT MEASURED" RESULTS ARE DISPLAYED WHEN THE INSTRUMENT HAS A SUPPRESSED OR UNREPORTABLE RESULT. THIS WILL MOST OFTEN HAPPEN WITH THE MPV WHEN THERE IS AN ABNORMAL PLATELET DISTRIBUTION DUE TO A CRITICAL LOW VALUE OR PLATELET CLUMPING. THE RDW MAY BE SUPPRESSED IF THERE ARE MULTIPLE PEAKS PRESENT ON THE RBC HISTOGRAM. IN THIS CASE, A MANUAL REVIEW OF THE SLIDE WILL BE PERFORMED, AND RBC MORPHOLOGY WILL BE NOTED ON THE REPORT. NE% (test code = NE) 90.6 % 42.0-75.0 H LY% (test code = LY) 6.8 % 13.0-42.0 L MO% (test code = MO) 1.7 % 4.0-14.0 L EO% (test code = EO) 0.0 % 1.0-5.0 L BA% (test code = BA) 0.2 % 0.0-3.0 IG% (test code = IG%) 0.7 % 0.0-0.4 H Neutrophils (test code = NEUTR) 90 10\\S\\3/ul 42-75 H No previous valu e was reported. A value of 90 was entered by [id number] on 05/31/2020 05:54 Bands (test code = BANDM) 1 % 0-2 No previous valu e was reported. A value of 1 was entered by [id number] on 05/31/2020 05:54 Lymphocytes (test code = LYMPH) 4 % 13-42 L No previous valu e was reported. A value of 4 was entered by [id number] on 05/31/2020 05:54 Monocytes (test code = MONOS) 2 % 4-14 L No previous valu e was reported. A value of 2 was entered by [id number] on 05/31/2020 05:54 Atypical Lymphocyte (test code = ATPLYM) 3 % No previous valu e was reported. A value of 3 was entered by [id number] on 05/31/2020 05:54 RBC Morphology (test code = RBCMOR) Anisocytosis Spherocytes StomatocytesTarget cells Occ No previous value wa s reported. A value of Anisocytosis Spherocytes StomatocytesTarget cells Occ was entered by [id number] on 05/31/2020 05:54 Platelet Morphology (test code = PLTMORPH) Giant platelets No previous valu e was reported. A value of Giant platelets was entered by [id number] on 05/31/2020 05:54 [facility]-LufkinD-DIMER [id number] 05:37:00* Test Item Value Reference Range Interpretation Comme nts D DIMER (test code = D DIM) 8.21 mg/L FEU 0.19-0.50 H METHOD CHANGE: Due to the discontinued mehodology currently in use, a change in the testing method is necessary. The Reference Ranges will change dramatically, and results are obtained by the observance of clotting activation mesured on the [employer] instruments. This same methodology is currently in use for PT/INR , PTT, AND HEPARIN testing in our Labs. The D-Dimer assay is an aid in the evaluation of thromboembolic events, as in DIC, DVT, Pulmonary Embolism, and other thromboembolic diseases, and should not be used without other diagnostic measures, to properly diagnose and treat thromboembolic disease. REFERENCE RANGE: 0.19 - 0.50 mg/L FEU (Fibrinogen Equivalent Units) Cut-Off Value is: > .50 mg/L FEU Note: Results greater than (>) the Cut-Off are to be considered POSITIVE, and significant in the evaluation of thromboembolic diseases. Results less than (<) the Cut-Off are to be considered NEGATIVE, and a low probability of thromboembolic disease. [facility]-LufkinD-DIMER [id number] 11:19:00* Test Item Value Reference Range Interpretation Comme nts D DIMER (test code = D DIM) 5.21 mg/L FEU 0.19-0.50 H METHOD CHANGE: Due to the discontinued mehodology currently in use, a change in the testing method is necessary. The Reference Ranges will change dramatically, and results are obtained by the observance of clotting activation mesured on the [employer] instruments. This same methodology is currently in use for PT/INR , PTT, AND HEPARIN testing in our Labs. The D-Dimer assay is an aid in the evaluation of thromboembolic events, as in DIC, DVT, Pulmonary Embolism, and other thromboembolic diseases, and should not be used without other diagnostic measures, to properly diagnose and treat thromboembolic disease. REFERENCE RANGE: 0.19 - 0.50 mg/L FEU (Fibrinogen Equivalent Units) Cut-Off Value is: > .50 mg/L FEU Note: Results greater than (>) the Cut-Off are to be considered POSITIVE, and significant in the evaluation of thromboembolic diseases. Results less than (<) the Cut-Off are to be considered NEGATIVE, and a low probability of thromboembolic disease. [facility] CenterTmlbdc-DahiqrXTGSYHHL3444-25-06 11:09:00* Test Item Value Reference Range Interpretation Comme nts Ferritin (test code = FERR) 1507.8 ng/ml 8.0-252.0 H [facility]-EctkdzEAY5419-20-51 11:09:00* Test Item Value Reference Range Interpretation Comme nts Sodium (test code = NA) 133 mmol/l 136-146 L Potassium (test code = K) 3.8 mmol/l 3.5-5.1 Chloride (test code = CL) 103 mmol/l 98-107 Calcium (test code = CALC) 7.8 mg/dl 8.5-10.1 L CO2 (test code = CO2) 24 mmol/l 21-32 Glucose (test code = GLU) 188 mg/dl 74-106 H BUN (test code = BUN) 35.0 mg/dl 7.0-18.0 H Creatinine (test code = CREA) 0.6 mg/dl 0.5-1.3 T Protein (test code = TP) 5.8 gm/dl 6.4-8.2 L Albumin (test code = ALB) 1.7 gm/dl 3.4-5.0 L A/G Ratio (test code = AGRAT) 0.4 % 1.1-2.2 L AST (SGOT) (test code = AST) 79 U/L 15-37 H ALT (SGPT) (test code = ALT) 46 U/L 13-61 Alkaline Phos (test code = ALKP) 189 U/L 45-117 H Total Bilirubin (test code = TBIL) 1.8 mg/dl 0.2-1.0 H Globulin (test code = GLOBU) 4.1 gm/dl 2.3-3.5 H Calcium, Corrected (test code = CALCCORR) 9.6 mg/dl 8.4-10.2 Various formulas exist for corrected serum calcium results, each yielding different values. This corrected result was based on the formula: Corrected Calcium = SerumCalcium + [0.8 * ( 4 - SerumAlbumin)] EGFR if (test code = EGFRAA) >60 mL/min/1.73m\\ S\\2 EGFR if Non- (test code = EGFRNA) >60 mL/min/1.73m\\ S\\2 Estimated Glomerular Filtration Rate (eGFR) Reference Intervals Decision Points for 18 years and older and average body mass: >= 60 Does not exclude kidney disease. 30 - 59 Suggests moderate chronic kidney disease and indicates the need for further investigation including assessment of proteinuria and cardiovascular factors. < 30 Usually indicates a need for referral for assessment and management of chronic kidney failure. [facility]ufkinPRO-BNP(B-Type Natriuretic Peptide)2020-05-30 11:09:00* Test Item Value Reference Range Interpretation Comme nts Pro-BNP(B-Peptide ) (test code = PROBNP) 711 pg/ml 0-125 H THE METHODOLOGY FOR DETECTION OF B-NATRIURETIC PEPTIDE HAS BEEN CHANGED TO "NT pro-BNP". THE NORMAL RANGES HAVE CHANGED. PLEASE NOTE THAT RANGES ARE DEFINED BY THE AGE OF THE PATIENT. (<75 years old = 0-125 pg/ml 75years and older = 0-450pg/ml). VALUES ARE NOT INTERCHANGEABLE BETWEEN METHODS. 05-01-2006 [facility]-[id number] 11:09:00* Test Item Value Reference Range Interpretation Comme [facility] LDH (test code = LDH) 464 U/L 84-246 H [facility]-REACTIVE [id number] 11:00:00* Test Item Value Reference Range Interpretation Comme nts C REACTIVE PROTEIN (test cod e = CRP) 5.8 ng/ml 0.0-0.3 H [facility] WITH AUTO [id number] 10:59:00* Test Item Value Reference Range Interpretation Comme nts WBC (test code = WBC) 10.09 10\\S\\3/ul 4.80-10.80 RBC (test code = RBC) 5.17 10\\S\\6/ul 4.20-5.40 Hemoglobin (test code = HGB) 18.0 gm/dl 12.0-14.0 H Hematocrit (test code = HCT) 51.3 % 37.0-47.0 H MCV (test code = MCV) 99.2 fL 81.0-99.0 H MCH (test code = MCH) 34.8 pg 27.0-31.0 H MCHC (test code = MCHC) 35.1 gm/dl 33.0-37.0 RDW (test code = RDWVC) 13.6 % 11.5-14.5 Platelet (test code = PLT) 163 10\\S\\3/ul 130-400 MPV (test code = MPV) 12.7 fL 7.4-10.4 A "NOT MEASURED" RESULTS ARE DISPLAYED WHEN THE INSTRUMENT HAS A SUPPRESSED OR UNREPORTABLE RESULT. THIS WILL MOST OFTEN HAPPEN WITH THE MPV WHEN THERE IS AN ABNORMAL PLATELET DISTRIBUTION DUE TO A CRITICAL LOW VALUE OR PLATELET CLUMPING. THE RDW MAY BE SUPPRESSED IF THERE ARE MULTIPLE PEAKS PRESENT ON THE RBC HISTOGRAM. IN THIS CASE, A MANUAL REVIEW OF THE SLIDE WILL BE PERFORMED, AND RBC MORPHOLOGY WILL BE NOTED ON THE REPORT. NE% (test code = NE) 89.6 % 42.0-75.0 H LY% (test code = LY) 5.6 % 13.0-42.0 L MO% (test code = MO) 3.9 % 4.0-14.0 L EO% (test code = EO) 0.0 % 1.0-5.0 L BA% (test code = BA) 0.2 % 0.0-3.0 IG% (test code = IG%) 0.7 % 0.0-0.4 H [facility] CHE[facility] AP/PA 1 [id number] 09:04:38 [facility])Name: YRIS BARNES : [id number] Sex: FProcedures: XR CHEST AP/PA 1 VIEWExam Date: 05/30/2020 5:00 AMOrdering Physician: DR TIMMY PENA Clinical Indication: [id number]: Covid-19Comparison: None available.Findings:Technique: Single frontal portable radiograph of the chest.Medical devices: EKG leads and wires overlie the thorax. Surgical clipsoverlie the right axilla.Pneumothorax: No pneumothorax.Lungs: Diffuse groundglass attenuationof the pulmonary parenchyma with slightbibasilar and right midlung predominance.Effusion: None.Aorta: No significant abnormality.Heart: No acute radiographic abnormalities.Bones: Degenerative changesof the shoulders and spine.Upper abdomen: Limited evaluation is without significant abnormality.Impression:Diffuse groundglass attenuation of the pulmonary parenchyma with slightbibasilar and right midlung predominance. Findings are suspicious for atypicalpneumonia and/or edema.This final report was electronically signed by Dr Matt Peters MD05/30/2020 8:59 AMDictated By: MATT ALBERTODate: 05/30/2020 08:59[facility] 19 PATIENTS [id number] 01:00:00* Test Item Value Reference Range Interpretation Comme nts CONVALESCENT PLASMA (test code = CCP) Released for Transfusion [facility]-[place]TYPE & [id number] 23:38:00* Test Item Value Reference Range Interpretation Comme nts ABO Blood Type (test code = ABO) O Rh (test code = RH) Positive Antibody Screen (test code = ABSCR) Negative Negative N ARMBAND# (test code = ARMBAND) SEE PT ARMBAND [facility]-[id number] 23:04:00* Test Item Value Reference Range Interpretation Comme nts LDH (test code = LDH) 536 U/L 84-246 H [facility] CenterDpncoj-[id number] 23:04:00* Test Item Value Reference Range Interpretation Comme nts Ferritin (test code = FERR) 1679.7 ng/ml 8.0-252.0 H [facility]kinPRO-BNP(B-Type Natriuretic Peptide)2020-05-29 23:04:00* Test Item Value Reference Range Interpretation Comme nts Pro-BNP(B-Peptide ) (test code = PROBNP) 706 pg/ml 0-125 H THE METHODOLOGY FOR DETECTION OF B-NATRIURETIC PEPTIDE HAS BEEN CHANGED TO "NT pro-BNP". THE NORMAL RANGES HAVE CHANGED. PLEASE NOTE THAT RANGES ARE DEFINED BY THE AGE OF THE PATIENT. (<75 years old = 0-125 pg/ml 75years and older = 0-450pg/ml). VALUES ARE NOT INTERCHANGEABLE BETWEEN METHODS. 05-01-2006 [facility]-[place]kinD-DIMER [id number] 23:02:00* Test Item Value Reference Range Interpretation Comme nts D DIMER (test code = D DIM) 6.77 mg/L FEU 0.19-0.50 H METHOD CHANGE: Due to the discontinued mehodology currently in use, a change in the testing method is necessary. The Reference Ranges will change dramatically, and results are obtained by the observance of clotting activation mesured on the [employer] instruments. This same methodology is currently in use for PT/INR , PTT, AND HEPARIN testing in our Labs. The D-Dimer assay is an aid in the evaluation of thromboembolic events, as in DIC, DVT, Pulmonary Embolism, and other thromboembolic diseases, and should not be used without other diagnostic measures, to properly diagnose and treat thromboembolic disease. REFERENCE RANGE: 0.19 - 0.50 mg/L FEU (Fibrinogen Equivalent Units) Cut-Off Value is: > .50 mg/L FEU Note: Results greater than (>) the Cut-Off are to be considered POSITIVE, and significant in the evaluation of thromboembolic diseases. Results less than (<) the Cut-Off are to be considered NEGATIVE, and a low probability of thromboembolic disease. [facility]-[id number] 23:01:00* Test Item Value Reference Range Interpretation Comme nts Sodium (test code = NA) 134 mmol/l 136-146 L Potassium (test code = K) 3.8 mmol/l 3.5-5.1 Chloride (test code = CL) 104 mmol/l 98-107 Calcium (test code = CALC) 8.0 mg/dl 8.5-10.1 L CO2 (test code = CO2) 25 mmol/l 21-32 Glucose (test code = GLU) 195 mg/dl 74-106 H BUN (test code = BUN) 38.0 mg/dl 7.0-18.0 H Creatinine (test code = CREA) 0.7 mg/dl 0.5-1.3 T Protein (test code = TP) 6.0 gm/dl 6.4-8.2 L Albumin (test code = ALB) 1.8 gm/dl 3.4-5.0 L A/G Ratio (test code = AGRAT) 0.4 % 1.1-2.2 L AST (SGOT) (test code = AST) 64 U/L 15-37 H ALT (SGPT) (test code = ALT) 35 U/L 13-61 Alkaline Phos (test code = ALKP) 170 U/L 45-117 H Total Bilirubin (test code = TBIL) 1.9 mg/dl 0.2-1.0 H Globulin (test code = GLOBU) 4.2 gm/dl 2.3-3.5 H Calcium, Corrected (test code = CALCCORR) 9.8 mg/dl 8.4-10.2 Various formulas exist for corrected serum calcium results, each yielding different values. This corrected result was based on the formula: Corrected Calcium = SerumCalcium + [0.8 * ( 4 - SerumAlbumin)] EGFR if (test code = EGFRAA) >60 mL/min/1.73m\\ S\\2 EGFR if Non- (test code = EGFRNA) >60 mL/min/1.73m\\ S\\2 Estimated Glomerular Filtration Rate (eGFR) Reference Intervals Decision Points for 18 years and older and average body mass: >= 60 Does not exclude kidney disease. 30 - 59 Suggests moderate chronic kidney disease and indicates the need for further investigation including assessment of proteinuria and cardiovascular factors. < 30 Usually indicates a need for referral for assessment and management of chronic kidney failure. [facility]-REACTIVE [id number] 23:01:00* Test Item Value Reference Range Interpretation Comme nts C REACTIVE PROTEIN (test cod e = CRP) 9.4 ng/ml 0.0-0.3 H [facility] WITH MANUAL [id number] 23:01:00* Test Item Value Reference Range Interpretation Comme nts WBC (test code = WBC) 8.26 10\\S\\3/ul 4.80-10.80 RBC (test code = RBC) 5.34 10\\S\\6/ul 4.20-5.40 Hemoglobin (test code = HGB) 19.0 gm/dl 12.0-14.0 H Hematocrit (test code = HCT) 51.9 % 37.0-47.0 H MCV (test code = MCV) 97.2 fL 81.0-99.0 MCH (test code = MCH) 35.6 pg 27.0-31.0 H MCHC (test code = MCHC) 36.6 gm/dl 33.0-37.0 RDW (test code = RDWVC) 13.2 % 11.5-14.5 Platelet (test code = PLT) 132 10\\S\\3/ul 130-400 MPV (test code = MPV) 12.5 fL 7.4-10.4 A "NOT MEASURED" RESULTS ARE DISPLAYED WHEN THE INSTRUMENT HAS A SUPPRESSED OR UNREPORTABLE RESULT. THIS WILL MOST OFTEN HAPPEN WITH THE MPV WHEN THERE IS AN ABNORMAL PLATELET DISTRIBUTION DUE TO A CRITICAL LOW VALUE OR PLATELET CLUMPING. THE RDW MAY BE SUPPRESSED IF THERE ARE MULTIPLE PEAKS PRESENT ON THE RBC HISTOGRAM. IN THIS CASE, A MANUAL REVIEW OF THE SLIDE WILL BE PERFORMED, AND RBC MORPHOLOGY WILL BE NOTED ON THE REPORT. NRBC, Auto (test code = NRBC_AUTO) 0 /100WBC 0-2 Neutrophils (test code = NEUTR) 88 10\\S\\3/ul 42-75 H Bands (test code = BANDM) 3 % 0-2 H Lymphocytes (test code = LYMPH) 3 % 13-42 L Monocytes (test code = MONOS) 5 % 4-14 Atypical Lymphocyte (test code = ATPLYM) 1 % RBC Morphology (test code = RBCMOR) Anisocytosis spherocytes Stomatocytes Platelet Morphology (test code = PLTMORPH) Giant plateletsOcc area of platelet clumping observed [facility] CenterBkjsgl-[id number] 22:30:00* Test Item Value Reference Range Interpretation Comme nts pH (ABG) (test code = BGPH) 7.488 7.350-7.450 H pCO2(T) (test code = BGPCO2(T)) 31.0 mm Hg 35.0-45.0 L pO2(T) (test code = BGPO2(T)) 48.5 mm Hg 80.0-100.0 LL sO2 (test code = BGSO2) 86.8 % 90.0-99.0 L Na+ (test code = BGCNA+) 137.7 mmol/l 135.0-148.0 K+ (test code = BGCK+) 3.52 mmol/l 3.50-4.50 Ca2+ (test code = BGCCA2+) 1.180 mmol/l 1.150-1.290 Cl- (test code = BGCCL-) 98.0 mmol/l 98-107 tHb (test code = BGCTHB) 16.7 gm/dl 11.5-17.4 O2Hb (test code = MKHR7AE) 85.1 % 95.0-99.0 L COHb (test code = BGFCOHB) <2.80 % 0.5-2.5 H MetHB (test code = BGMETHB) <1.30 % 0.4-1.5 N Barometric Pressure (test code = BGBARO) 760.0 mm Hg 450.0-1000.0 BE(act) (test code = BGBEACT) 1 mmol/l HCO3 (test code = BGHCO3) 25 meq/L 22-26 ctCO2(B) (test code = BGCTCO2(B)) 19 mmol/l FIO2 (fO2(I) (test code = BGFIO2) 0.80 % Drawn By (test code = BGDRAWNBY) DEBBIE ANDERSON Collection Date (test code = BGDTCOL) 05/29/2020 Collection Time (test code = BGCTM) 22:26 Sample Site (test code = BGSAMPLESITE) L Radial Sample Type (test code = BGSAMPLETYPE) Arterial Allens Test (test code = BGALLEN) Acceptable Notified By (test code = BGNOTIFIEDBY) DEBBIE ANDERSON Date Notified (test code = BGDTNOTIFIED) 05/29/2020 Time Notified (test code = BGTMNOTIFIED) 22:27 O2 Device (test code = [id number]) Nasal Cannula L/M (test code = BGL/M) 15.0 Instrument ID (test code = BGINSTRID) [id number] Reported By (test code = BGREPORTEDBY) DEBBIE ANDERSON [facility]
[2023-04-13] MEDS ORDERED: TENECTEPLASE 50 MG/10 ML VIAL IV ONE (10:49)
[2023-04-13] MEDS ORDERED: HYDRALAZINE HCL 20 MG/ML VIAL ONE (10:49)
--- NOTE | 2023-04-13 10:55 | RAD REPORT ---
EXAM DESCRIPTION: CT - Ct Stroke Brain Wo Cont - 04/13/2023 10:47 am CLINICAL HISTORY: Right-sided weakness COMPARISON: none TECHNIQUE: Computed axial tomography of the head was obtained. All CT scans are performed using dose optimization technique as appropriate and may include automated exposure control or mA/KV adjustment according to patient size. FINDINGS: 3 millimeter area of increased density left basal ganglia The ventricles are normal in caliber. No extra-axial fluid collection is noted. No significant hypodensity within the brain Fluid within the sinuses/ mastoids is not seen. IMPRESSION: 3 millimeter area of increased density left basal ganglia favored to be faint calcificat ion. Bleed is considered less likely. If clinically indicated further evaluation with MRI could be ob tained Dr Coronel of the emergency room was notified at 10:49 a.m. on 04/13/2023
[2023-04-13 11:19] LABS: Absolute Lymphocytes (CBC) 1.4 K/uL (0.7-4.9); Hematocrit 61.5 % (36.0-45.0); Lymphocytes % 21.9 % (15.3-44.8); MCV 103.5 fL (80-100); MPV 9.1 fL (7.6-11.3); Platelets 139 thou/uL (152-406); RBC Red Blood Cell Count 5.94 M/uL (3.86-4.86)
--- NOTE | 2023-04-13 11:34 | RAD REPORT ---
EXAM DESCRIPTION: [facility] Single View04/13/2023 11:08 am CLINICAL HISTORY: Cva hypertension COMPARISON: 2028 FINDINGS: Mild bilateral interstitial lung opacities Heart is mildly enlarged IMPRESSION: Mild bilateral interstitial lung opacities may represent pneumonitis or atypical pneumon ia
[2023-04-13 11:35] LABS: Protime INR 0.92
[2023-04-13 11:39] LABS: Albumin 3.6 g/dL (3.4-5.0); Bilirubin Direct 0.2 mg/dL (0-0.2); Bilirubin Indirect, Calculated 0.8 mg/dL (0.2-0.8); Magnesium 2.1 mg/dL (1.6-2.4); Potassium 4.4 mEq/L (3.5-5.1); Troponin High Sensitivity 5.2 pg/mL (<58.9)
[2023-04-13] MEDS ORDERED: METHYLPREDNISOLONE 125 MG INJ ONE (12:14)
[2023-04-13] MEDS ORDERED: DIPHENHYDRAMINE 50 MG/ML VIAL ONE (12:14)
--- NOTE | 2023-04-13 12:26 | RAD REPORT ---
EXAM DESCRIPTION: CTHead angio04/13/2023 12:08 pm CLINICAL HISTORY: Right sided weakness COMPARISON: None TECHNIQUE: 100 cc Isovue [address] angiogram of the head was obtained. 3D MIPS reconstruction performed. All CT scans are performed using dose optimization technique as appropriate and may include automated exposure control or mA/KV adjustment according to patient size. FINDINGS: The basilar, anterior cerebral, middle cerebral and posterior cerebral arteries do not dem onstrate a significant stenosis Mild calcified plaque distal internal carotid arteries An aneurysm is not seen No large vessel occlusion IMPRESSION: No significant abnormality is displayed
--- NOTE | 2023-04-13 12:26 | RAD REPORT ---
EXAM DESCRIPTION: Marlin Angio04/13/2023 12:09 pm CLINICAL HISTORY: Right-sided weakness COMPARISON: None TECHNIQUE: 100 cc Isovue [address] angiogram of the neck was obtained. 3D MIPS reconstruction performed. All CT scans are performed using dose optimization technique as appropriate and may include automated exposure control or mA/KV adjustment according to patient size. FINDINGS: Mild plaque is present within common carotid, internal carotid and external carotid arteri es bilaterally Left vertebral artery is hypoplastic. Right vertebral artery unremarkable No dissection is seen. No high-grade stenosis IMPRESSION: No significant abnormality is displayed Nascet crieria Mild stenosis 0 to 49 % Moderate stenosis 50-69% Severe stenosis 70-99%
--- NOTE | 2023-04-13 12:44 | ER ---
Nurse's Notes [facility] Name: Ade Polo Age: 68 yrs Sex: Female : 1955 Arrival Date: 04/13/2023 Time: 09:59 Bed 3 Private MD: Diagnosis: Acute CVA Presentation: 04/13 10:22 Chief complaint: Patient states: she started having a cramp in her right hand, and a ap3 numbing feeling from the back of her neck down into her right arm. patient states this started at approx 0830 this morning. Patient reports it has happened in the past but goes away quickly, this time the feeling is not going away. Coronavirus screen: At this time, the client does not indicate any symptoms associated with coronavirus-19. Ebola Screen: No symptoms or risks identified at this time. Initial Sepsis Screen: Does the patient meet any 2 criteria? No. Patient's initial sepsis screen is negative. Does the patient have a suspected source of infection? No. Patient's initial sepsis screen is negative. Risk Assessment: Do you want to hurt yourself or someone else? Patient reports no desire to harm self or others. Onset of symptoms was April 13, 2023 at 08:30. 10:22 Method Of Arrival: Wheelchair ap3 10:22 Acuity: RHETT 2 ap3 Historical: - Allergies: 10:25 PENICILLINS; ap3 - PMHx: 10:25 breast CA ( in remission); Hypertensive disorder; ap3 - Immunization history:: Client reports having NOT received the Covid vaccine. - Social history:: Smoking status: Patient reports the use of cigarette tobacco products, smokes one-half pack cigarettes per day. - Family history:: not pertinent. Screenin:32 Abuse screen: Denies threats or abuse. Denies injuries from another. Nutritional ph screening: No deficits noted. Tuberculosis screening: No symptoms or risk factors identified. 10:33 [facility] ED Fall Risk Assessment (Adult) History of falling in the last 3 months, ph including since admission No falls in past 3 months (0 pts) Confusion or Disorientation No (0 pts) Intoxicated or Sedated No (0 pts) Impaired Gait No (0 pts) Mobility Assist Device Used No (0 pt) Altered Elimination No (0 pt) Score/Fall Risk Level 0 - 2 = Low Risk Oriented to surroundings, Maintained a safe environment, Provided non-skid footwear, Hourly rounding (assess needs \\T\\ fall precautionary measures) done. 10:53 [facility] Swallow Protocol Brief Cognitive Screen What is your name? Normal, Where are you kc6 right now? Normal, What year is it? Normal. Oral Mechanism Examination Facial Symmetry: Normal, Motion: Normal, Lip Closure: Normal, Oral Mechanism Result: Normal. 3 oz Water Swallow Challenge: Pt able to drink all water without stopping, coughing, choking or throat clearing: Yes Result: PASS MD Notified: Tony Villagran MD. Assessment: 10:29 General: Dr Villagran at bedside to assess pt. ph 10:30 General: Appears in no apparent distress. comfortable, Behavior is cooperative, ph appropriate for age. Pain: Denies pain. Neuro: Level of Consciousness is awake, alert, obeys commands, Oriented to person, place, time, situation, [employer] are weak on right Moves all extremities. Speech is normal, Facial symmetry appears normal, Pupils are PERRLA, Tingling in right arm and right leg. Cardiovascular: Capillary refill < 3 seconds in bilateral fingers Patient's skin is warm and dry. Respiratory: Airway is patent Respiratory effort is even, unlabored. Derm: Skin is pink, warm \\T\\ dry. 10:31 Reassessment: Code stroke called overhead. ph 10:32 Reassessment: Pt taken to CT by Elaine Adams RN. ph 11:05 Reassessment: TNK administration delayed to elevated BP, hydralazine administered, see ph MAR. 11:13 Reassessment: Systolic BP decreased to <180, TNK given, see MAR. ph 11:54 Reassessment: Pt taken to CT via stretcher. ph 12:15 Reassessment: Pt returned from CT, hives noted to face and neck, pt denies itching, ph states,"My eyes and my face feel weird." Denies SOB, ERP notified of reaction, see MAR for orders. Vital Signs: 10:22 BP 206 / 107; Pulse 70; Resp 18; Temp 98.7; Pulse Ox 100% ; Weight 65.77 kg; Height 5 ap3 ft. 5 in. ; 11:43 BP 128 / 89; Pulse 83; Resp 20; Pulse Ox 98% ; ph 12:31 BP 173 / 85; Pulse 87; Resp 18; Pulse Ox 98% on R/A; ph 10:22 Body Mass Index 24.13 (65.77 kg, 165.1 cm) ap3 NIH Stroke Scale Scores: 10:30 NIHSS Score: 5 ph 12:54 NIHSS Score: 5 rt ED Course: 10:04 Patient arrived in ED. ra3 10:24 Tony Villagran MD is Attending Physician. rt 10:25 Triage completed. ap3 10:25 Arm band placed on right wrist. ap3 10:32 Naida Rivera, RN is Primary Nurse. ph 10:33 Patient has correct armband on for positive identification. Placed in gown. Bed in low ph position. Call light in reach. Side rails up X 1. Client placed on continuous cardiac and pulse oximetry monitoring. NIBP monitoring applied. 10:48 CT Stroke Brain w/o Contrast In Process Unspecified. EDMS 11:05 Inserted saline lock: 20 gauge in right antecubital area, using aseptic technique. ap3 11:10 Stroke CXR 1 View In Process Unspecified. EDMS 11:10 Inserted saline lock: 20 gauge in left antecubital area, using aseptic technique. Blood ds4 collected. Missed attempt(s): 20 gauge in left upper arm. 12:10 CT Head Angio In Process Unspecified. EDMS 12:11 CT Neck Angio In Process Unspecified. EDMS 12:30 No provider procedures requiring assistance completed. Patient admitted, IV remains in ph place. 12:43 Kirit Wells MD is Hospitalizing Provider. rt 19:09 Primary Nurse role handed off by Naida Rivera, RN as6 Administered Medications: 11:04 Drug: hydrALAZINE IVP 20 mg IVP once Route: IVP; Site: left antecubital; kc6 19:40 Follow up: Response: No adverse reaction; Blood pressure is lowered km8 11:13 Drug: TNK FOR STROKE - Tenecteplase IV 0.25 mg/kg IV at per protocol once; MAX kc6 DOSE 25 mg, IVP over 5 seconds {Co-Signature: ph (Naida Rivera RN).} Route: IV; Rate: per protocol; Site: left antecubital; 19:00 Follow up: IV Status: Completed infusion km8 12:28 Drug: MethylPrednisoLONE IVP 125 mg IVP once Route: IVP; Site: right antecubital; ph 19:40 Follow up: Response: No adverse reaction km8 12:28 Drug: diphenhydrAMINE IVP 50 mg IVP once Route: IVP; Site: right antecubital; ph 19:40 Follow up: Response: No adverse reaction km8 Medication: 10:33 VIS not applicable for this client. ph Outcome: 12:44 Decision to Hospitalize by Provider. rt 15:35 Admitted to ER Hold. Please see [facility] for further documentation. ph 15:35 Condition: stable 20:09 Patient left the ED. as6 NIH Stroke Scale - NIH Stroke Score Date: 04/13/2023 Time: 10:30 Total Score = 5 10. Dysarthria (speech clarity - read or repeat words) - 1(Mild to Moderate) 11. Extinction and Inattention (visual/tactile/auditory/spatial/personal) - 0(No abnormality) 1a. Level of Consciousness (LOC) - 0(Alert) 1b. Level of Consciousness (LOC) (Month \\T\\ Age) - 0(Both) 1c. LOC Commands (Open \\T\\ Closes Eyes/Circus Rider) - 0(Both) 2. Best Gaze (Lateral Gaze Paresis) - 0(Normal) 3. Visual Field Loss - 0(No visual loss) 4. Facial Palsy - 1(Minor Paralysis) 5a. Left Arm: Motor (10-second hold) - 0(No drift) 5b. Right Arm: Motor (10-second hold) - 1(Drift) 6a. Left Leg: Motor (5-second hold - always test supine) - 0(No drift) 6b. Right Leg: Motor (5-second hold - always test supine) - 1(Drift) 7. Limb Ataxia (finger/nose \\T\\ heel/dale - test with eyes open) 8. Sensory Loss (pinprick arms/legs/face) - 1(Mild to moderate loss) 9. Best Language: Aphasia (description/naming/reading) - 0(No aphasia) Initials: NIH Stroke Scale - NIH Stroke Score Date: 04/13/2023 Time: 12:54 Total Score = 5 10. Dysarthria (speech clarity - read or repeat words) - 1(Mild to Moderate) 11. Extinction and Inattention (visual/tactile/auditory/spatial/personal) - 0(No abnormality) 1a. Level of Consciousness (LOC) - 0(Alert) 1b. Level of Consciousness (LOC) (Month \\T\\ Age) - 0(Both) 1c. LOC Commands (Open \\T\\ Closes Eyes/Circus Rider) - 0(Both) 2. Best Gaze (Lateral Gaze Paresis) - 0(Normal) 3. Visual Field Loss - 0(No visual loss) 4. Facial Palsy - 1(Minor Paralysis) 5a. Left Arm: Motor (10-second hold) - 0(No drift) 5b. Right Arm: Motor (10-second hold) - 1(Drift) 6a. Left Leg: Motor (5-second hold - always test supine) - 0(No drift) 6b. Right Leg: Motor (5-second hold - always test supine) - 1(Drift) 7. Limb Ataxia (finger/nose \\T\\ heel/dale - test with eyes open) - 0(Absent) 8. Sensory Loss (pinprick arms/legs/face) - 1(Mild to moderate loss) 9. Best Language: Aphasia (description/naming/reading) - 0(No aphasia) Initials: rt Signatures: Dispatcher [employer] EDMS Curt Marshall ds4 Naida Rivera, TL RN ph Elaine Peña RN RN edith3 Wilbur Penn RN RN as6 Lilli Dow RN RN kc6 Tony Villagran MD MD rt Margarette Coley RN RN juve8 Iva Rocha ra3 Naida Rivera RN ph
--- NOTE | 2023-04-13 12:44 | EDPHYS ---
Physician Documentation [facility] Name: Ade Polo Age: 68 yrs Sex: Female : 1955 Arrival Date: 04/13/2023 Time: 09:59 Bed 3 Private MD: ED Physician Tony Villagran HPI: 04/13 12:54 This 68 yrs old Female presents to ER via Wheelchair with complaints of rt Numbness Of Arm - of Rt side. 12:54 Patient presents to the ED with numbness, weakness to the right side. Last known normal rt was at 8 AM. The patient denies other acute complaints at this time, symptoms are moderate severity, no other aggravating alleviating factors.. Historical: - Allergies: 10:25 PENICILLINS; ap3 - PMHx: 10:25 breast CA ( in remission); Hypertensive disorder; ap3 - Immunization history:: Client reports having NOT received the Covid vaccine. - Social history:: Smoking status: Patient reports the use of cigarette tobacco products, smokes one-half pack cigarettes per day. - Family history:: not pertinent. ROS: 12:54 Constitutional: Negative for fever, chills, and weight loss, Cardiovascular: Negative rt for chest pain, palpitations, and edema, Respiratory: Negative for shortness of breath, cough, wheezing, and pleuritic chest pain, Abdomen/GI: Negative for abdominal pain, nausea, vomiting, diarrhea, and constipation, MS/Extremity: Negative for injury and deformity, Skin: Negative for injury, rash, and discoloration, Psych: Negative for depression, anxiety, suicide ideation, homicidal ideation, and hallucinations, 12:54 Neuro: Positive for numbness, weakness, Exam: 12:54 Constitutional: This is a well developed, well nourished patient who is awake, alert, rt and in no acute distress. Head/Face: Normocephalic, atraumatic. Chest/axilla: Normal chest wall appearance and motion. Nontender with no deformity. No lesions are appreciated. Cardiovascular: Regular rate and rhythm with a normal S1 and S2. No gallops, murmurs, or rubs. Normal PMI, no JVD. No pulse deficits. Respiratory: Lungs have equal breath sounds bilaterally, clear to auscultation and percussion. No rales, rhonchi or wheezes noted. No increased work of breathing, no retractions or nasal flaring. Abdomen/GI: Soft, non-tender, with normal bowel sounds. No distension or tympany. No guarding or rebound. No evidence of tenderness throughout. Skin: Warm, dry with normal turgor. Normal color with no rashes, no lesions, and no evidence of cellulitis. Psych: Awake, alert, with orientation to person, place and time. Behavior, mood, and affect are within normal limits. 12:54 Eyes: Extraocular muscles are intact, no visual field deficits. 12:54 ECG was reviewed by the Attending Physician. 12:54 Neuro: Drift in the right upper and right lower extremities, slight facial symmetry noted, mild dysarthria noted, no aphasia, sensory deficits in the right side of the face, right arm, right leg. Strength and sensation otherwise intact, Vital Signs: 10:22 BP 206 / 107; Pulse 70; Resp 18; Temp 98.7; Pulse Ox 100% ; Weight 65.77 kg; Height 5 ap3 ft. 5 in. ; 11:43 BP 128 / 89; Pulse 83; Resp 20; Pulse Ox 98% ; ph 12:31 BP 173 / 85; Pulse 87; Resp 18; Pulse Ox 98% on R/A; ph 10:22 Body Mass Index 24.13 (65.77 kg, 165.1 cm) ap3 NIH Stroke Scale Scores: 10:30 NIHSS Score: 5 ph 12:54 NIHSS Score: 5 rt MDM: 10:27 Patient medically screened. rt 12:54 Differential diagnosis: Acute CVA, TIA, paresthesia. Data reviewed: vital signs, nurses rt notes, lab test result(s), EKG, radiologic studies. Consideration of Admission/Observation Patient was admitted/placed on observation. Management of patient was discussed with the following: Hospitalist: Agrees to admit. I considered the following discharge prescriptions or medication management in the emergency department Medications were administered in the Emergency Department. See MAR. Independent interpretation of the following test(s) in the Emergency Department CT Scan: My interpretation is No hemorrhage seen on my interpretation of CT scan images. Discussion of test interpretation with radiology: I had a discussion with radiology regarding a test interpretation. Calcification, no hemorrhage. Care significantly affected by the following chronic conditions: Hypertension. Counseling: I had a detailed discussion with the patient and/or guardian regarding the historical points, exam findings, and any diagnostic results supporting the discharge/admit diagnosis, lab results, radiology results, the need for further work-up and treatment in the hospital. Response to treatment: There is no appreciated change of the patient's symptoms at this time. 04/13 10:41 Order name: Basic Metabolic Panel; Complete Time: 11:48 rt 04/13 10:41 Order name: CBC with Diff; Complete Time: 11:48 rt 04/13 10:41 Order name: Hepatic Function; Complete Time: 11:48 rt 04/13 10:41 Order name: High Sensitivity Troponin; Complete Time: 11:48 rt 04/13 10:41 Order name: Magnesium; Complete Time: 11:48 rt 04/13 10:41 Order name: Protime (+inr); Complete Time: 11:48 rt 04/13 10:41 Order name: Ptt, Activated; Complete Time: 11:48 rt 04/13 11:07 Order name: Glucose, Ancillary Testing; Complete Time: 11:48 EDMS 04/13 10:41 Order name: CT Stroke Brain w/o Contrast; Complete Time: 11:48 rt 04/13 10:41 Order name: Stroke CXR 1 View; Complete Time: 11:48 rt 04/13 10:53 Order name: CT Head Angio; Complete Time: 12:27 rt 04/13 10:53 Order name: CT Neck Angio; Complete Time: 12:27 rt 04/13 16:41 Order name: US; Complete Time: 16:44 EDMS 04/13 10:41 Order name: EKG; Complete Time: 10:41 rt 04/13 10:41 Order name: Accucheck; Complete Time: 11:01 rt 04/13 10:41 Order name: Cardiac monitoring; Complete Time: 10:53 rt 04/13 10:41 Order name: EKG - Nurse/Tech; Complete Time: 11:01 rt 04/13 10:41 Order name: IV Saline Lock; Complete Time: 11:05 rt 04/13 10:41 Order name: Labs collected and sent; Complete Time: 11:05 rt 04/13 10:41 Order name: NPO; Complete Time: 10:53 rt 04/13 10:41 Order name: O2 Per Protocol; Complete Time: 10:53 rt 04/13 10:41 Order name: O2 Sat Monitoring; Complete Time: 10:53 rt 12/21 10:41 Order name: Stroke Swallow Screen; Complete Time: 11:01 rt EC:54 Rate is 63 beats/min. Rhythm is regular, Normal Sinus Rhythm with No ectopy. QRS [place] rt is Normal. OR interval is normal. QRS interval is normal. QT interval is normal. No Q waves. Clinical impression: NSR w/ Non-specific ST/T Changes. Administered Medications: 11:04 Drug: hydrALAZINE IVP 20 mg IVP once Route: IVP; Site: left antecubital; kc6 19:40 Follow up: Response: No adverse reaction; Blood pressure is lowered km8 11:13 Drug: TNK FOR STROKE - Tenecteplase IV 0.25 mg/kg IV at per protocol once; MAX kc6 DOSE 25 mg, IVP over 5 seconds {Co-Signature: ph (Naida Rivera RN).} Route: IV; Rate: per protocol; Site: left antecubital; 19:00 Follow up: IV Status: Completed infusion km8 12:28 Drug: MethylPrednisoLONE IVP 125 mg IVP once Route: IVP; Site: right antecubital; ph 19:40 Follow up: Response: No adverse reaction km8 12:28 Drug: diphenhydrAMINE IVP 50 mg IVP once Route: IVP; Site: right antecubital; ph 19:40 Follow up: Response: No adverse reaction km8 Disposition Summary: 04/13/23 12:44 Hospitalization Ordered Notes: Hospitalization Status: Inpatient Admission rt Provider: Kirit Wells rt Condition: Fair rt Problem: new rt Symptoms: are unchanged rt Bed/Room Type: Standard rt Location: Intensive Care Unit(04/13/23 16:28) em1 Room Assignment: 1-(04/13/23 18:56) em1 Diagnosis - Acute CVA rt Forms: - Medication Reconciliation Form rt - SBAR form rt - Leadership Thank You Letter rt Critical care time excluding procedures: 12:54 Critical care time: Bedside Care: 30 minutes, Consultation: 5 minutes. Total time: 35 rt minutes NIH Stroke Scale - NIH Stroke Score Date: 04/13/2023 Time: 10:30 Total Score = 5 10. Dysarthria (speech clarity - read or repeat words) - 1(Mild to Moderate) 11. Extinction and Inattention (visual/tactile/auditory/spatial/personal) - 0(No abnormality) 1a. Level of Consciousness (LOC) - 0(Alert) 1b. Level of Consciousness (LOC) (Month \T\ Age) - 0(Both) 1c. LOC Commands (Open \T\ Closes Eyes/Wax Cutter) - 0(Both) 2. Best Gaze (Lateral Gaze Paresis) - 0(Normal) 3. Visual Field Loss - 0(No visual loss) 4. Facial Palsy - 1(Minor Paralysis) 5a. Left Arm: Motor (10-second hold) - 0(No drift) 5b. Right Arm: Motor (10-second hold) - 1(Drift) 6a. Left Leg: Motor (5-second hold - always test supine) - 0(No drift) 6b. Right Leg: Motor (5-second hold - always test supine) - 1(Drift) 7. Limb Ataxia (finger/nose \T\ heel/dale - test with eyes open) 8. Sensory Loss (pinprick arms/legs/face) - 1(Mild to moderate loss) 9. Best Language: Aphasia (description/naming/reading) - 0(No aphasia) Initials: NIH Stroke Scale - NIH Stroke Score Date: 04/13/2023 Time: 12:54 Total Score = 5 10. Dysarthria (speech clarity - read or repeat words) - 1(Mild to Moderate) 11. Extinction and Inattention (visual/tactile/auditory/spatial/personal) - 0(No abnormality) 1a. Level of Consciousness (LOC) - 0(Alert) 1b. Level of Consciousness (LOC) (Month \T\ Age) - 0(Both) 1c. LOC Commands (Open \T\ Closes Eyes/Wax Cutter) - 0(Both) 2. Best Gaze (Lateral Gaze Paresis) - 0(Normal) 3. Visual Field Loss - 0(No visual loss) 4. Facial Palsy - 1(Minor Paralysis) 5a. Left Arm: Motor (10-second hold) - 0(No drift) 5b. Right Arm: Motor (10-second hold) - 1(Drift) 6a. Left Leg: Motor (5-second hold - always test supine) - 0(No drift) 6b. Right Leg: Motor (5-second hold - always test supine) - 1(Drift) 7. Limb Ataxia (finger/nose \T\ heel/dale - test with eyes open) - 0(Absent) 8. Sensory Loss (pinprick arms/legs/face) - 1(Mild to moderate loss) 9. Best Language: Aphasia (description/naming/reading) - 0(No aphasia) Initials: rt Signatures: Dispatcher [employer] Jared Mims em1 Naida Rivera, TL RN ph Gosia Jaffe RN RN jl7 Elaine Peña RN RN ap3 Lilli Dow RN RN kc6 Tony Villagran MD MD rt Margarette Coley RN km8 Naida Rivera RN ph Corrections: (The following items were deleted from the chart) 15:07 12:44 Intensive Care Unit rt jl7 15:07 12:44 rt jl7 16:28 15:07 [facility] ER HOLD jl7 em1 16:28 15:07 ERHOLD- jl7 em1 18:56 16:28 6- em1 em1
[2023-04-13] MEDS ORDERED: ACETAMINOPHEN 500 MG TAB PO PRN (13:29)
[2023-04-13] MEDS ORDERED: ALBUTEROL 2.5 MG/3 ML NEB SOL NEB PRN (13:29)
--- NOTE | 2023-04-13 14:05 | P.HP ---
Certification for Inpatient With expected LOS: <2 Midnights <LevyRobert jamil - Last Filed: 04/13/23 14:23> Patient History Date of Service: 04/13/23 Reason for admission: Acute CVA History of Present Illness: This is an 68-year-old female with a primary medical history of hypertension presented to the emergency room via wheelchair with complaints of numbness of the right arm. Patient reports she started feeling numb on the right arm in the morning after 8:00 and the numbness started and into the right lower extremity. Patient denies any other acute complaints at this time. No aggravating or relieving factors. Patient denies chest pain, shortness of breath, nausea or vomiting. Patient denies fever or chills. Acute CVA ED course Vital signs; blood pressure 206/107, heart rate 70, respiration 18, temperature 98.7, SpO2 100% on room air, EKG normal sinus rhythm. Initial lab results-unremarkable CT - Ct Stroke Brain Wo Cont - 04/13/2023 10:47 am-3 millimeter area of increased density left basal ganglia favored to be faint calcification. Bleed is considered less likely. CXR Single View04/13/2023 11:08 am-Mild bilateral interstitial lung opacities may represent pneumonitis or atypical pneumonia CTHead angio04/13/2023 12:08 pm- No significant abnormality is displayed. Patient was given 11:04 amDrug: hydrALAZINE IVP 20 mg IVP once Route: IVP;1113 AM TNK FOR STROKE - Tenecteplase IV 0.25 mg/kg IV at per protocol once; IVP over 5 seconds, 12:28 Drug: diphenhydrAMINE IVP 50 mg IVP once Route: IVP; 12:28 Drug: MethylPrednisoLONE IVP 125 mg IVP . Admitting the patient with a diagnosis of acute CVA, hypertension. Hypertension - Past Medical/Surgical History Diabetic: No -: Alcohol use -: Polycythemia vera -: Tobacco abuse -: COPD -: R lumpectomy Psychosocial/ Personal History: Patient lives at home - Family History Mother -: Hypertension, Diabetes Father -: Stroke - Social History Smoking Status: Light Tobacco smoker (1-9 cigarettes/day) Smoking therapy provided: Yes Patient receptive to therapy: Yes Alcohol use: No CD- Drugs: No Caffeine use: No <LevyDurga jamilallison - Last Filed: 04/13/23 14:23> Date of Service: 04/13/23 <Kirit Wells - Last Filed: 04/13/23 15:56> Allergies Penicillins Allergy (Mild, Verified 02/19/13 23:23) Hives/Rash Home Medications: NK [No Home Meds] 05/29/20 Review of Systems 10-point ROS is otherwise unremarkable <LevyDurga jamilallison - Last Filed: 04/13/23 14:23> Physical Examination - Physical Exam General: Alert, Oriented x3 HEENT: Atraumatic, Normocephalic Neck: Supple, 2+ carotid pulse no bruit Respiratory: Clear to auscultation bilaterally, Normal air movement Cardiovascular: No edema, Normal pulses, Regular rate/rhythm, Normal S1 S2 Capillary refill: <2 Seconds Gastrointestinal: Normal bowel sounds, Soft and benign, Tenderness (eruptions od skin on the face and on the righ hand) Musculoskeletal: No clubbing, No swelling Integumentary: Other Neurological: Normal speech, Normal tone, Other (Right hemiparesis) - Studies Laboratory Data (last 24 hrs) 04/13/23 04/13/23 04/13/23 11:05 11:05 11:05 WBC 6.50 Hgb 20.7 H Hct 61.5 H Plt Count 139 L PT 10.1 INR 0.92 APTT 37.4 H Sodium 134 L Potassium 4.4 BUN 9 Creatinine 0.76 Glucose 106 Magnesium 2.1 Total Bilirubin 1.0 AST 22 ALT 22 Alkaline Phosphatase 98 <Levy,Robert - Last Filed: 04/13/23 14:23> - Studies Laboratory Data (last 24 hrs) 04/13/23 04/13/23 04/13/23 11:05 11:05 11:05 WBC 6.50 Hgb 20.7 H Hct 61.5 H Plt Count 139 L PT 10.1 INR 0.92 APTT 37.4 H Sodium 134 L Potassium 4.4 BUN 9 Creatinine 0.76 Glucose 106 Magnesium 2.1 Total Bilirubin 1.0 AST 22 ALT 22 Alkaline Phosphatase 98 <Kirit Wells - Last Filed: 04/13/23 15:56> Assessment and Plan - Problems (Diagnosis) (1) Acute CVA (cerebrovascular accident) Current Visit: Yes Status: Acute Plan: Patient presented with symptoms of right-sided weakness and numbness, which patient still of the numbness and weakness. Patient has several risk factors for CVA including hypertension. Vital signs; blood pressure 206/107, heart rate 70, respiration 18, temperature 98.7, SpO2 100% on room air, EKG normal sinus rhythm. Initial lab results-unremarkable CT - Ct Stroke Brain Wo Cont - 04/13/2023 10:47 am-3 millimeter area of increased density left basal ganglia favored to be faint calcification. Bleed is considered less likely. -CTHead angio04/13/2023 12:08 pm- No significant abnormality is displayed. -Patient was given 11:04 am-: hydrALAZINE IVP 20 mg IVP once -Tenecteplase IV 0.25 mg/kg IV at per protocol once; MAX DOSE 25 mg, IVP over 5 seconds, -Patient developed drug eruptions on the face and on the right arm diphenhydrAMINE IVP 50 mg IVP and MethylPrednisoLONE IVP 125 mg IVP in the ER. - Consulted Neurology Dr. Cason - Admit under observation status - Right upper and lower extremity weakness and numbness on my exam - NIHSS = 5 - Allow permissive hypertension for tonight - q4hr neurochecks - Ordered MR brain + MRA head/neck - Ordered TTE - PT/OT evaluation requested - Ordered risk profile: lipid panel, TSH - Started atorvastatin (2) Right hemiparesis Current Visit: Yes Status: Acute Plan: Acute right-sided weakness and numbness Post TNKase PT OT ordered Continue to monitor (3) Hypertension Current Visit: Yes Status: Acute Plan: Posterior CVA Permissive hypertension allowed to night Close monitoring of vital signs Resume home medication Qualifiers: Hypertension type: primary hypertension Qualified Code(s): I10 - Essential (primary) hypertension (4) COPD (chronic obstructive pulmonary disease) Current Visit: Yes Status: Chronic Plan: Chronic controlled, patient denies any breathing problems Not on any medications at this time Patient is a current everyday smoker for many years discussed discussed cigarette cessation less than 10 minutes patient voiced understanding Qualifiers: Emphysema type: unspecified (5) Cigarette nicotine dependence Current Visit: Yes Status: Acute Qualifiers: Substance use status: uncomplicated Qualified Code(s): F17.210 - Nicotine dependence, cigarettes, uncomplicated (6) History of right breast cancer Current Visit: Yes Status: Acute Plan: History of right breast cancer posterior lumpectomy many years ago - Plan CODE STATUS full code DVT prophylaxis SCDs Diet- cardiac Discharge Plan: Home Plan to discharge in: 48 Hours - Advance Directives Does patient have a Living Will: No Does patient have a Durable POA for Healthcare: Yes - Code Status/Comfort Care Code Status Assessed: Yes (full code) Code Status: Full Code Physician Review: Patient Assessed, Agree with Above Assessment and Plan Critical Care: Yes Time Spent Managing Pts Care (In Minutes): 55 (Minutes) <Robert Levy - Last Filed: 04/13/23 14:23> - Plan Pt seen and examined. I agree with the note by the AMBULANCE MECHANIC. Pt is a 68-year-old female with past medical history of hypertension who presents with right arm numbness that started around 8am. The numbness worsened and pt came to the ER for evaluation. On admission, CT head showed a 3 millimeter area of increased density left basal ganglia favored to be faint calcification. Bleed is considered less likely. CXR showed Mild bilateral interstitial lung opacities may represent pneumonitis or atypical pneumonia. CTA head and neck is unremarkable. The Neurologist gave tPA. Pt later developed hives on her face and swelling on her right knuckle. At bedside, pt is in NAD. A/P: CVA: Pt presented with numbness on the right arm. s/p tPA. Will observe in the ICU for 24hrs. Will repeat CT head and start aspirin after 24hrs from the time of tPA administration. Will continue atorvastatin and monitor BP. Will follow up MRI, MRA head and Echo. Hives: likely due to reaction to tPA. Will continue steroid and benadryl. Htn: Will monitor BP Hx of COPD: Not in exacerbation. Will continue prn duoneb and oxygen. Tobacco abuse; Pt was advised to quit smoking. Will continue nicotine patch Hx of breast cancer: noted. DVT ppx: SCD Code: full <Kirit Wells - Last Filed: 04/13/23 15:56>
--- NOTE | 2023-04-13 16:41 | RAD REPORT ---
EXAM DESCRIPTION: US - CP - 04/13/2023 2:39 pm CLINICAL HISTORY: acute stroke COMPARISON: Neck Angio dated 04/13/2023 TECHNIQUE: Real-time sonographic grayscale, color duplex, and spectral wave Doppler evaluation of xochilt th carotid systems was performed. FINDINGS: Normal high resistance waveforms are noted in both external carotid arteries. The common c arotid arteries and internal carotid arteries show normal low resistance waveforms. Mild bilateral hyperechoic atherosclerotic plaque, with smooth surface, more pronounced along the rig ht compared to the left bulb. Peak systolic velocity less than 125 cm/ sec bilaterally. ICA/CCA peak systolic ratios less than 2.0 bilaterally. Antegrade flow seen in both vertebral arteries. IMPRESSION: Mild atherosclerotic changes noted. Less than 50% ICA stenosis. Vertebral arteries are patent. Evaluation of carotid artery stenosis, if any, is reported based on consensus recommendations of the Society of Radiologists in Ultrasound (Hector et al., Radiology, 2003)
[2023-04-13 17:01] VITALS: BMI 24.1
[2023-04-13] MEDS ORDERED: NA CHLORIDE 0.9% 1,000 ML ONE ×2 (17:43→19:34)
[2023-04-13] MEDS ORDERED: ATORVASTATIN 40 MG TAB ONE (19:34)
[2023-04-13] MEDS: NA CHLORIDE 0.9% 1,000 ML IV SCH (19:47)
[2023-04-13] MEDS ORDERED: ATORVASTATIN 20 MG TAB PO SCH (21:00)
[2023-04-13 22:17] LABS: Specific Gravity > 1.030 (1.005-1.030); Urine Bacteria None Seen /HPF (<20); Urine Bilirubin NEGATIVE (Negative); Urine Blood 2+ (Negative); Urine Clarity Clear (Clear); Urine Color Light-Yellow (Yellow); Urine Crystals Unidentified Few /HPF (None Seen); Urine Glucose 3+ (Negative); Urine Mucus Slight /HPF (None Seen); Urine Protein NEGATIVE (Negative); Urine RBC <5 /HPF (None Seen); Urine Urobilinogen Normal (Normal); Urine WBC Clump Rare /HPF (None Seen)
[2023-04-14 04:01] LABS: Absolute Lymphocytes (CBC) 0.8 K/uL (0.7-4.9); Hematocrit 56.5 % (36.0-45.0); Lymphocytes % 8.5 % (15.3-44.8); MCV 103.4 fL (80-100); MPV 9.9 fL (7.6-11.3); Platelets 153 thou/uL (152-406); RBC Red Blood Cell Count 5.47 M/uL (3.86-4.86)
[2023-04-14 04:16] LABS: Magnesium 2.2 mg/dL (1.6-2.4); Phosphorus 3.3 mg/dL (2.5-4.9)
[2023-04-14 04:44] LABS: Thyroid Stimulating Hormone 0.876 uIU/mL (0.358-3.740)
[2023-04-14 05:29] LABS: Blood Morphology Comment NOT SEEN (NOT SEEN); Platelet Estimate ADEQ
[2023-04-14 06:20] LABS: RPR (Rapid Plasma Reagin) NON-REACT (NON-REACT)
[2023-04-14] MEDS ORDERED: lisinopriL 10 MG TAB PO SCH (09:00)
[2023-04-14] MEDS: NA CHLORIDE 0.9% 1,000 ML IV SCH (10:00)
[2023-04-14] MEDS ORDERED: DRISDOL (VITAMIN D=ERGOCALCIFEROL) 50000 UNIT CAP PO SCH (10:00)
--- NOTE | 2023-04-14 11:20 | RAD REPORT ---
EXAM DESCRIPTION: CT - Head Brain Wo Cont - 04/14/2023 11:05 am CLINICAL HISTORY: CVA/right-sided weakness COMPARISON: March 14, [address] TECHNIQUE: Computed axial tomography of the head was obtained. IV contrast was not requested. All CT scans are performed using dose optimization technique as appropriate and may include automated exposure control or mA/KV adjustment according to patient size. FINDINGS: An intracranial bleed is not seen The ventricles are normal in caliber No extra-axial fluid collection is noted. No significant hypodensity within the brain noted. Fluid within the sinuses/ mastoids is not seen. IMPRESSION: No acute intracranial abnormality is seen If patient's symptoms persist MRI of the brain would be recommended
[2023-04-14] MEDS: CYANOCOBALAMIN 1,000 MCG TAB PO SCH (12:09)
--- NOTE | 2023-04-14 12:17 | RAD REPORT ---
EXAM DESCRIPTION: MRI - Brain W/Wo Cont - 04/14/2023 11:54 am CLINICAL HISTORY: Acute CVA. Right-sided weakness COMPARISON: head CT April 14, 2023 TECHNIQUE: Axial, sagittal, and coronal magnetic images of the brain were obtained. 15 cc MultiHance administered intravenously FINDINGS: The ventricles are normal in caliber. Diffusion-weighted/ ADC mapping sequences demonstrate 6 millimeter area of abnormal signal left thala mus compatible with acute infarct No abnormal enhancement within the brain is seen. An extra-axial fluid collection is not noted. Fluid within the sinuses/mastoids is not seen IMPRESSION: 6 millimeter acute infarct left thalamus
--- NOTE | 2023-04-14 15:09 | EKG ---
Test Date: 2023-04-13 Test Time: 10:58:18 [employer]: ALP MEASUREMENT RESULTS: Intervals: Rate: 63 NV: 134 QRSD: 80 QT: 428 QTc: 437 [place]: P: 39 NV: 134 QRS: 38 T: 84 INTERPRETIVE STATEMENTS: Normal sinus rhythm Possible Left atrial enlargement Nonspecific ST abnormality Abnormal ECG Compared to ECG 05/28/2020 15:44:17 ST (T wave) deviation now present Prolonged QT interval no longer present Electronically Signed On 04-14-23 15:07:41 ENVIRONMENTAL TECHNOLOGY PROFESSOR by Anthony Whiting
--- NOTE | 2023-04-14 16:24 | P.PN ---
Subjective Date of Service: 04/14/23 Chief Complaint: Acute CVA Subjective: No new changes, Improving, Doing well Patient is alert and oriented x 3 NAD Vital stable With right-sided weakness but the movements are improving patient's sensation is improving <Robert Levy - Last Filed: 04/14/23 16:19> Date of Service: 04/14/23 <Kirit Wells Dwight - Last Filed: 04/14/23 18:12> Review of Systems 10-point ROS is otherwise unremarkable <Robert Levy - Last Filed: 04/14/23 16:19> Physical Examination - Vital Signs Temperature: 97.0 F Blood Pressure: 152/71 Pulse: 62 Respirations: 19 Pulse Ox (%): 99 - Physical Exam General: Alert, Oriented x3 HEENT: Atraumatic, Normocephalic, PERRLA Neck: Supple, 2+ carotid pulse no bruit Respiratory: Clear to auscultation bilaterally, Normal air movement Cardiovascular: No edema, Normal pulses Capillary refill: <2 Seconds Gastrointestinal: Normal bowel sounds, Soft and benign Musculoskeletal: No clubbing, No swelling, Other (Right-sided weakness) Integumentary: No rashes, No breakdown, No erythema, No warmth Neurological: Normal speech, Normal tone, Other (Right-sided weakness) <Robert Levy - Last Filed: 04/14/23 16:19> Assessment And Plan - Current Problems (Diagnosis) (1) Acute CVA (cerebrovascular accident) Current Visit: Yes Status: Acute Plan: -Improving symptoms , right-sided weakness patient reports better movements and better sensation - patient presented with symptoms of right-sided weakness and numbness, which patient still of the numbness and weakness. Patient has several risk factors for CVA including hypertension. CT - Ct Stroke Brain Wo Cont - 04/13/2023 10:47 am-3 millimeter area of increased density left basal ganglia favored to be faint calcification. Bleed is considered less likely. -CTHead angio04/13/2023 12:08 pm- No significant abnormality is displayed. -Patient was given 11:04 am-: hydrALAZINE IVP 20 mg IVP once -Tenecteplase IV 0.25 mg/kg IV at per protocol once; MAX DOSE 25 mg, IVP over 5 seconds, - Consulted Neurology Dr. Cason - Right upper and lower extremity weakness and numbness on my exam - NIHSS = 5 - Allow permissive hypertension for tonight - q4hr neurochecks - Ordered MR brain + MRA head/neck - Ordered TTE -Continue PT/OT -On atorvastatin (2) Right hemiparesis Current Visit: Yes Status: Acute Plan: Acute right-sided weakness and numbness improving strength Post TNKase PT OT to be continued Continue to monitor (3) Hypertension Current Visit: Yes Status: Acute Plan: Post acute CVA Close monitoring of vital signs Resume home medication Qualifiers: Hypertension type: primary hypertension Qualified Code(s): I10 - Essential (primary) hypertension (4) COPD (chronic obstructive pulmonary disease) Current Visit: Yes Status: Chronic Plan: Chronic controlled, patient denies any breathing problems Not on any medications at this time Patient is a current everyday smoker for many years discussed discussed cigarette cessation less than 10 minutes patient voiced understanding Qualifiers: Emphysema type: unspecified (5) Cigarette nicotine dependence Current Visit: Yes Status: Acute Qualifiers: Substance use status: uncomplicated Qualified Code(s): F17.210 - Nicotine dependence, cigarettes, uncomplicated (6) History of right breast cancer Current Visit: Yes Status: Acute Plan: History of right breast cancer posterior lumpectomy many years ago - Plan CODE STATUS full code DVT prophylaxis SCDs Diet- cardiac Discharge Plan: Home Plan to discharge in: 24 Hours - Code Status/Comfort Care Code Status Assessed: Yes (full code) Code Status: Full Code Physician Review: Patient Assessed, Agree with Above Assessment and Plan Critical Care: Yes Time Spent Managing PTS Care (In Minutes): 35 (minutes) <Robert Levy - Last Filed: 04/14/23 16:19> - Plan Pt seen and examined. I agree with the note by the QUARRYING MANAGER. Will follow MRI brain and repeat CT head. Will start aspirin afetr 24hrs from the time of tPA administration. <Kirit Wells - Last Filed: 04/14/23 18:12>
[2023-04-14] MEDS ORDERED: ATORVASTATIN 40 MG TAB PO SCH (21:00)
[2023-04-15 03:32] LABS: Absolute Lymphocytes (CBC) 2.3 K/uL (0.7-4.9); Hematocrit 56.2 % (36.0-45.0); Lymphocytes % 27.2 % (15.3-44.8); MCV 102.6 fL (80-100); MPV 9.1 fL (7.6-11.3); Platelets 132 thou/uL (152-406); RBC Red Blood Cell Count 5.48 M/uL (3.86-4.86)
[2023-04-15 04:06] LABS: Magnesium 2.1 mg/dL (1.6-2.4); Phosphorus 4.5 mg/dL (2.5-4.9); Potassium 3.8 mEq/L (3.5-5.1)
[2023-04-15] MEDS: CYANOCOBALAMIN 1,000 MCG TAB PO SCH (08:15)
[2023-04-15 08:57] VITALS: O2SAT 98
[2023-04-15] MEDS ORDERED: POTASSIUM CL SA 10 MEQ TAB PO ONE (09:00)
[2023-04-15] MEDS ORDERED: ASPIRIN EC 81 MG TAB PO SCH (09:00)
[2023-04-15] MEDS ORDERED: lisinopriL 20 MG TAB PO SCH ×2 (09:00)
--- NOTE | 2023-04-15 09:23 | P.DS ---
Admission Date: 04/13/23 Discharge Date: 04/15/23 Reason for Admission: Acute CVA - Problems (1) Acute CVA (cerebrovascular accident) Status: Acute (2) Right hemiparesis Status: Acute (3) Hypertension Status: Acute Qualifiers: Hypertension type: primary hypertension Qualified Code(s): I10 - Essential (primary) hypertension (4) COPD (chronic obstructive pulmonary disease) Status: Chronic Qualifiers: Emphysema type: unspecified (5) Cigarette nicotine dependence Status: Acute Qualifiers: Substance use status: uncomplicated Qualified Code(s): F17.210 - Nicotine dependence, cigarettes, uncomplicated (6) History of right breast cancer Status: Acute Brief History of Present Illness: This is an 68-year-old female with a primary medical history of hypertension presented to the emergency room via wheelchair with complaints of numbness of the right arm. Patient reports she started feeling numb on the right arm in the morning after 8:00 and the numbness started and into the right lower extremity. Patient denies any other acute complaints at this time. No a ggravating or relieving factors. Patient denies chest pain, shortness of breath, nausea or vomiting. Patient denies fever or chills. Acute CVA ED course Vital signs; blood pressure 206/107, heart rate 70, respiration 18, temperature 98.7, SpO2 100% on room air, EKG normal sinus rhythm. Initial lab results-unremarkable CT - Ct Stroke Brain Wo Cont - 04/13/2023 10:47 am-3 millimeter area of incre ased density left basal ganglia favored to be faint calcification. Bleed is considered less likely. CXR Single View04/13/2023 11:08 am-Mild bilateral interstitial lung opacities may represent pneumonitis or atypical pneumonia CTHead angio04/13/2023 12:08 pm- No significant abnormality is displayed. Patient was given 11:04 amDrug: hydrALAZINE IVP 20 mg IVP once Route: IVP;1113 AM TNK FOR STROKE - Tenecteplase IV 0.25 mg/kg IV at per protocol once; IVP over 5 seconds, 12:28 Drug: diphenhydrAMINE IVP 50 mg IVP once Route: IVP; 12:28 Drug: MethylPrednisoLONE IVP 125 mg IVP . Admitting the patient with a diagnosis of acute CVA, hypertension. Hypertension Hospital Course: Ms. Polo is a pleasant 68-year-old female with a past medical history significant for hypertension who was admitted to the [facility] on on 04/14/2020 for acute CVA, with the right sided weakness and numbness. CT - Ct Stroke Brain Wo Cont - 04/13/2023 10:47 am-3 millimeter area of increased density left basal ganglia favored to be faint calcification. Bleed is considered less likely. CXR Single View04/13/2023 11:08 am-Mild bilateral interstitial lung opacities may represent pneumonitis or atypical pneumonia CTHead angio04/13/2023 12:08 pm- No significant abnormality is displayed. Patient was given Tenecteplase IV 0.25 mg/kg IV in the ER Patient was admitted in the hospital for close monitoring, patient' is still having weakness weakness and numbness but significantly improved. On 04/14/2020, patient was seen on morning rounds and deemed medically stable for discharge. Patient was discharged with instructions to schedule follow-up appointments with PCP in [address] Cason in 2 weeks. 1. Please call and schedule a follow-up appointment with your PCP in 1 week 2. Please call and schedule a follow-up appointment with neurologist Dr. Cason in 2 weeks - Please follow-up with your PCP for medication refills/adjustments <Robert Levy - Last Filed: 04/15/23 11:32> Admission Date: 04/13/23 Discharge Date: 04/25/23 Hospital Course: Pt seen and examined. I agree with the note by the COLORIST PHOTOGRAPHY. Ok to discharge pt. <Kirit Wells - Last Filed: 04/25/23 18:13> Disposition: ROUTINE DISCHARGE Discharge Condition: GOOD Vital Signs/Physical Exam: Temp Pulse Resp BP Pulse Ox 97.6 F 56 18 171/84 H 97 04/15/23 08:00 04/15/23 08:00 04/15/23 08:00 04/15/23 08:00 04/15/23 08:00 General: Alert, Oriented x3 HEENT: Atraumatic Neck: Supple, 2+ carotid pulse no bruit Respiratory: Clear to auscultation bilaterally, Normal air movement Cardiovascular: No edema, Normal pulses, Regular rate/rhythm Capillary refill: <2 Seconds Gastrointestinal: Normal bowel sounds, Soft and benign Musculoskeletal: No clubbing, No swelling Integumentary: No rashes, No breakdown Neurological: Normal speech, Normal tone, Normal reflexes 2+, Other (right hemiparesis -improving) Laboratory Data at Discharge: WBC 8.40 thou/uL (4.3-10.9) 04/15/23 03:21 Hgb 18.5 g/dL (12.0-15.0) H 04/15/23 03:21 Hct 56.2 % (36.0-45.0) H 04/15/23 03:21 Plt Count 132 thou/uL (152-406) L 04/15/23 03:21 PT 10.1 SECONDS (9.5-12.5) 04/13/23 11:05 INR 0.92 04/13/23 11:05 APTT 37.4 SECONDS (24.3-36.9) H 04/13/23 11:05 Sodium 138 mEq/L (136-145) 04/15/23 03:21 Potassium 3.8 mEq/L (3.5-5.1) 04/15/23 03:21 BUN 14 mg/dL (7-18) 04/15/23 03:21 Creatinine 0.74 mg/dL (0.55-1.02) 04/15/23 03:21 Glucose 103 mg/dL (74-106) 04/15/23 03:21 Phosphorus 4.5 mg/dL (2.5-4.9) 04/15/23 03:21 Magnesium 2.1 mg/dL (1.6-2.4) 04/15/23 03:21 Total Bilirubin 1.0 mg/dL (0.2-1.0) 04/13/23 11:05 AST 22 U/L (15-37) 04/13/23 11:05 ALT 22 U/L (13-56) 04/13/23 11:05 Alkaline Phosphatase 98 U/L (45-117) 04/13/23 11:05 Triglycerides 61 mg/dL (<150) 04/14/23 03:25 Cholesterol 210 mg/dL (<200) H 04/14/23 03:25 HDL Cholesterol 48 mg/dL (40-60) 04/14/23 03:25 Cholesterol/HDL Ratio 4.38 04/14/23 03:25 <Robert Levy - Last Filed: 04/15/23 11:32> Vital Signs/Physical Exam: Temp Pulse Resp BP Pulse Ox 97.2 F 65 18 145/83 H 97 04/15/23 12:00 04/15/23 12:00 04/15/23 12:00 04/15/23 12:00 04/15/23 12:00 Laboratory Data at Discharge: WBC 8.40 thou/uL (4.3-10.9) 04/15/23 03:21 Hgb 18.5 g/dL (12.0-15.0) H 04/15/23 03:21 Hct 56.2 % (36.0-45.0) H 04/15/23 03:21 Plt Count 132 thou/uL (152-406) L 04/15/23 03:21 PT 10.1 SECONDS (9.5-12.5) 04/13/23 11:05 INR 0.92 04/13/23 11:05 APTT 37.4 SECONDS (24.3-36.9) H 04/13/23 11:05 Sodium 138 mEq/L (136-145) 04/15/23 03:21 Potassium 3.8 mEq/L (3.5-5.1) 04/15/23 03:21 BUN 14 mg/dL (7-18) 04/15/23 03:21 Creatinine 0.74 mg/dL (0.55-1.02) 04/15/23 03:21 Glucose 103 mg/dL (74-106) 04/15/23 03:21 Phosphorus 4.5 mg/dL (2.5-4.9) 04/15/23 03:21 Magnesium 2.1 mg/dL (1.6-2.4) 04/15/23 03:21 Total Bilirubin 1.0 mg/dL (0.2-1.0) 04/13/23 11:05 AST 22 U/L (15-37) 04/13/23 11:05 ALT 22 U/L (13-56) 04/13/23 11:05 Alkaline Phosphatase 98 U/L (45-117) 04/13/23 11:05 Triglycerides 61 mg/dL (<150) 04/14/23 03:25 Cholesterol 210 mg/dL (<200) H 04/14/23 03:25 HDL Cholesterol 48 mg/dL (40-60) 04/14/23 03:25 Cholesterol/HDL Ratio 4.38 04/14/23 03:25 <Kirit Wells - Last Filed: 04/25/23 18:13> Diet: Low sodium Activity: Ad bird <Robert Levy - Last Filed: 04/15/23 11:32> <Kirit Wells - Last Filed: 04/25/23 18:13> Home Medications: Aspirin [Low Dose Aspirin EC] 81 mg PO DAILY 04/13/23 Lisinopril [Zestril] 20 mg PO DAILY 04/13/23 Atorvastatin Calcium 40 mg PO DAILY 30 Days #30 tab 04/15/23 Atorvastatin Calcium [Lipitor] 40 mg PO BEDTIME 30 Days #40 tab 04/15/23 Cyanocobalamin [Vitamin B-12*] 1,000 mcg PO DAILY 30 Days #30 tab 04/15/23 Cyanocobalamin [Vitamin B-12*] 1,000 mcg PO DAILY 90 Days #30 tab 04/15/23 Ergocalciferol (Vitamin D2) [Vitamin D 50,000 Unit Cap] 50,000 unit PO 1X 90 Days #12 tab 04/15/23 Vitamin D [Drisdol*] 50,000 unit PO Q7D@0900 90 Days #12 cap 04/15/23 lisinopriL [Prinivil*] 20 mg PO DAILY tab 04/15/23 New Medications: Atorvastatin Calcium 40 mg PO DAILY 30 Days #30 tab Vitamin D [Drisdol*] 50,000 unit PO Q7D@0900 90 Days #12 cap Atorvastatin Calcium [Lipitor] 40 mg PO BEDTIME 30 Days #40 tab Cyanocobalamin [Vitamin B-12*] 1,000 mcg PO DAILY 90 Days #30 tab Cyanocobalamin [Vitamin B-12*] 1,000 mcg PO DAILY 30 Days #30 tab Ergocalciferol (Vitamin D2) [Vitamin D 50,000 Unit Cap] 50,000 unit PO 1X 90 Days #12 tab Physician Discharge Instructions: Ms. Polo is a pleasant 68-year-old female with a past medical history significant for hypertension who was admitted to the [facility] on on 04/14/2020 for acute CVA, with the right sided weakness and numbness. CT - Ct Stroke Brain Wo Cont - 04/13/2023 10:47 am-3 millimeter area of increased density left basal ganglia favored to be faint calcification. Bleed is considered less likely. CXR Single View04/13/2023 11:08 am-Mild bilateral interstitial lung opacities may represent pneumonitis or atypical pneumonia CTHead angio04/13/2023 12:08 pm- No significant abnormality is displayed. Patient was given Tenecteplase IV 0.25 mg/kg IV in the ER Patient was admitted in the hospital for close monitoring, patient' is still having weakness weakness and numbness but significantly improved. On 04/14/2020, patient was seen on morning rounds and deemed medically stable for discharge. Patient was discharged with instructions to schedule follow-up appointments with PCP in [address] Cason in 2 weeks. 1. Please call and schedule a follow-up appointment with your PCP in 1 week 2. Please call and schedule a follow-up appointment with neurologist Dr. Cason in 2 weeks - Please follow-up with your PCP for medication refills/adjustments Followup: Jean Paul Cason MD [ASSOCIATE-ACTIVE - CAN ADMIT] - 1-2 Weeks NONE,NONE [Primary Care Provider] -
[2023-04-15 12:11] VITALS: BP 145/83; TEMP 97.2
--- NOTE | 2023-04-18 07:52 | ECHO ---
HEIGHT: 5 ft 5 in WEIGHT: 144 lb 15.968 oz DATE OF STUDY: 04/14/[address]: Robert Levy NP 2-DIMENSIONAL: YES M.MODE: YES DOPPLER: YES COLOR FLOW: YES TDS: PORTABLE: YES DEFINITY: BUBBLE STUDY: DIAGNOSIS: TRANSIENT ISCHEMIA ATTACK CARDIAC HISTORY: CATHERIZATION: SURGERY: PROSTHETIC VALVE: PACEMAKER: MEASUREMENTS (cm) DIASTOLIC (NORMALS) SYSTOLIC (NORMALS) IVSd 0.9 (0.6-1.2) LA Diam 3.6 (1.9-4.0) LVEF 65% LVIDd 4.4 (3.5-5.7) LVIDs 2.9 (2.0-3.5) %FS 35% LVPWd 1.1 (0.6-1.2) Ao Diam 2.9 (2.0-3.7) 2 DIMENSIONAL ASSESSMENT: RIGHT ATRIUM: NORMAL LEFT ATRIUM: NORMAL RIGHT VENTRICLE: NORMAL LEFT VENTRICLE: NORMAL TRICUSPID VALVE: MILD TRICUSPID REGURGITATION MITRAL VALVE: MILD MITRAL REGURGITATION PULMONIC VALVE: NORMAL AORTIC VALVE: NORMAL PERICARDIAL EFFUSION: NONE AORTIC ROOT: NORMAL LEFT VENTRICULAR WALL MOTION: NORMAL DOPPLER/COLOR FLOW: SEE BELOW COMMENTS: 1. NORMAL LEFT VENTRICULAR EJECTION FRACTION 60-65% WITH NORMALWALL MOTION 2. GRADE I DIASTOLIC DYSFUNCTION 3. MILD MITRAL REGURGITATION 4. MILD TRICUSPID REGURGITATION TECHNOLOGIST: IVANA SHEN
[2023-04-18 11:41] LABS: Albumin, (SPE) 3.8 g/dL (3.8-4.8); Alpha-1-Globulins 0.3 g/dL (0.2-0.3); Alpha-2-Globulins 0.7 g/dL (0.5-0.9); Gamma Globulins 0.9 g/dL (0.8-1.7); INTERPRETATION REPORT
[2023-04-20 13:10] LABS: Protein C Antigen 86 % normal (70-140)
[2023-04-21 19:03] LABS: Prothrombin Gene Analysis Test NEGATIVE
== END 2023-04-15 12:46 | disposition home or self-care (01) | DRG 62 ==
LOC: ER 09:59 → ERHOLD 13:27 → 3RD-ICU 04-14 02:20 → 2ND 04-14 16:55
PROVIDERS: ADMIT Hospitalist; ATTEND Psychiatry & Neurology Neurology with Special Qualifications in Child Neurology
DX: I63.9 Cerebral infarction, unspecified (principal); G81.91 Hemiplegia, unspecified affecting right dominant side; I10 Essential (primary) hypertension; R29.705 NIHSS score 5; Z92.82 Status post administration of tPA (rtPA) in a different facility within the last 24 hours prior to admission to current facility; Z87.891 Personal history of nicotine dependence; J44.9 Chronic obstructive pulmonary disease, unspecified; Z85.3 Personal history of malignant neoplasm of breast; Z88.0 Allergy status to penicillin; F10.90 Alcohol use, unspecified, uncomplicated; D45 Polycythemia vera
CPT/HCPCS: 36415; 70450; 70496; 70498; 70553; 71045; 80048; 80061; 80076; 81001; 81240; 81241; 82306; 82607; 82668; 82947; 83090; 83735; 83880; 84100; 84165; 84439; 84443; 84484; 85025; 85300; 85302; 85305; 85306; 85610; 85730; 86021; 86147; 86592; 92610; 92977; 93005; 93306; 93880; 97116; 97161; 97530; 99291; 99292; A9577; J0360; J1200; J2930; J3101; J7030; Q9967